=== PATIENT | female | born 1965 | race African-American/Black ===

== ENCOUNTER 2021-01-17 12:57 | Observation (INO) ==
[2021-01-17] MEDS ORDERED: FUROSEMIDE 100 MG/10 ML VIAL IV STA (13:13)
[2021-01-17] MEDS ORDERED: MORPHINE 4 MG/1 ML VIAL IV STA (13:14)
[2021-01-17] MEDS ORDERED: NITROGLYCERIN SL 0.4 MG TABLET SL PRN (13:14)
[2021-01-17 13:27] LABS: Basophils # 0.1 10*3/uL (0.0-0.2); Basophils % 0.4 % (0.0-0.8); Eosinophils # 0.2 10*3/uL (0.0-0.87); Eosinophils % 1.4 % (0.00-10.9); Hematocrit 37.4 VOL% (35.7-47.0); Hemoglobin 11.6 GM/DL (12.0-16.0); Immature Granulocytes % 1.4 %; Immature Granulocytes Absolute 0.23 #; Lymphocytes # 1.8 10*3/uL (1.4-4.0); Lymphocytes % 10.6 % (21.3-54.2); Mean Corpuscular Volume 80.1 FL (87-102); Mean Platelet Volume 9.4 FL (9.6-12.0); Monocytes % 4.8 % (1.7-12.7); NRBC # 0.06 10*3/uL; Neutrophils % 81.4 % (38.7-73.9); Platelet Count 342 T/CUMM (130-400); Red Blood Count 4.67 MC/CUMM (3.8-5.5); Red Cell Distribution Width 16.3 % (9.3-17.3); White Blood Count 16.9 T/CUMM (4-12)
[2021-01-17 13:44] LABS: PT Patient Result 10.9 SECS (9.8-11.9); Partial Thromboplastin Time 31.2 SECS (23.9-33.8)
[2021-01-17 13:49] LABS: Albumin 2.9 G/DL (3.4-5.0); Bilirubin,Total 0.4 MG/DL (0.2-1.0); Calcium 8.7 MG/DL (8.5-10.1); Osmolality,Calculated 282.1 MOS/KG (273-304); Potassium 4.8 MMOL/L (3.5-5.1); Total Protein 7.4 G/DL (5.0-7.5)
[2021-01-17] MEDS ORDERED: DEXTROSE 50% 25 GM/50 ML VIAL IV PRN (16:42)
[2021-01-17] MEDS ORDERED: ACETAMINOPHEN 325 MG TABLET PO PRN (16:42)
[2021-01-17] MEDS ORDERED: ONDANSETRON 4 MG/2 ML VIAL IV PRN (16:42)
[2021-01-17] MEDS ORDERED: GLUCAGON 1 MG VIAL IM PRN (16:42)
[2021-01-17] MEDS: HEPARIN 5,000 UNIT/1 ML VIAL SUBCUT SCH (17:56)
[2021-01-17] MEDS: cefTRIAXone 1,000 MG in SYRINGE 1 EACH IV SCH (17:56)
[2021-01-17] MEDS: AZITHROMYCIN INJ 500 MG in SODIUM CHLORIDE 0.9% 250 ML IV SCH (17:56)
[2021-01-17] MEDS: ALBUTEROL/IPRATROPIUM 3 ML NEB RESP TX SCH (19:40)
[2021-01-17] MEDS: INSULIN LISPRO 100 UNIT/ML SUBCUT SCH (21:14)
[2021-01-17] MEDS: SIMVASTATIN 20 MG TABLET PO SCH (21:14)
[2021-01-18] MEDS: ALBUTEROL/IPRATROPIUM 3 ML NEB RESP TX SCH ×4 (01:06→19:50)
[2021-01-18 05:06] LABS: Basophils % 0.3 % (0.0-0.8); Eosinophils # 0.2 10*3/uL (0.0-0.87); Eosinophils % 1.7 % (0.00-10.9); Hematocrit 31.8 VOL% (35.7-47.0); Immature Granulocytes % 0.9 %; Immature Granulocytes Absolute 0.12 #; Lymphocytes # 1.5 10*3/uL (1.4-4.0); Lymphocytes % 11.5 % (21.3-54.2); Mean Corpuscular HGB Conc 31.4 GM/DL (32-36); Mean Corpuscular Volume 80.5 FL (87-102); Mean Platelet Volume 9.8 FL (9.6-12.0); Monocytes % 5.1 % (1.7-12.7); NRBC # 0.05 10*3/uL; Neutrophils % 80.5 % (38.7-73.9); Platelet Count 283 T/CUMM (130-400); Red Blood Count 3.95 MC/CUMM (3.8-5.5); White Blood Count 13.2 T/CUMM (4-12)
[2021-01-18] MEDS: HEPARIN 5,000 UNIT/1 ML VIAL SUBCUT SCH ×2 (05:57→16:50)
[2021-01-18 06:43] LABS: Calcium 8.3 MG/DL (8.5-10.1); Osmolality,Calculated 284.2 MOS/KG (273-304); Potassium 4.7 MMOL/L (3.5-5.1)
[2021-01-18] MEDS: ASPIRIN EC 81 MG TABLET PO SCH (08:36)
[2021-01-18] MEDS: LEVOTHYROXINE 125 MCG TABLET PO SCH (08:36)
[2021-01-18] MEDS: CETIRIZINE 10 MG TABLET PO SCH (08:37)
[2021-01-18] MEDS: PANTOPRAZOLE 40 MG TABLET PO SCH (08:37)
[2021-01-18] MEDS: FUROSEMIDE 40 MG/4 ML VIAL IV SCH ×2 (08:37→16:51)
[2021-01-18] MEDS: INSULIN LISPRO 100 UNIT/ML SUBCUT SCH ×4 (08:37→20:54)
[2021-01-18] MEDS ORDERED: sitaGLIPtin 25 MG TABLET PO SCH (09:00)
[2021-01-18] MEDS: glipiZIDE 10 MG TABLET PO SCH ×2 (09:24→20:53)
[2021-01-18] MEDS: AZITHROMYCIN INJ 500 MG in SODIUM CHLORIDE 0.9% 250 ML IV SCH (16:49)
[2021-01-18] MEDS: cefTRIAXone 1,000 MG in SYRINGE 1 EACH IV SCH (16:50)
[2021-01-18] MEDS: SIMVASTATIN 20 MG TABLET PO SCH (20:52)
[2021-01-19] MEDS: ALBUTEROL/IPRATROPIUM 3 ML NEB RESP TX SCH ×3 (00:27→12:50)
[2021-01-19] MEDS: HEPARIN 5,000 UNIT/1 ML VIAL SUBCUT SCH (05:38)
[2021-01-19 06:03] LABS: Basophils # 0.1 10*3/uL (0.0-0.2); Basophils % 0.6 % (0.0-0.8); Eosinophils # 0.5 10*3/uL (0.0-0.87); Eosinophils % 4.2 % (0.00-10.9); Hemoglobin 9.8 GM/DL (12.0-16.0); Immature Granulocytes Absolute 0.11 #; Lymphocytes # 2.4 10*3/uL (1.4-4.0); Lymphocytes % 22.8 % (21.3-54.2); Mean Corpuscular HGB Conc 31.6 GM/DL (32-36); Mean Corpuscular Volume 78.7 FL (87-102); Mean Platelet Volume 10.4 FL (9.6-12.0); Monocytes % 7.4 % (1.7-12.7); NRBC # 0.06 10*3/uL; Platelet Count 298 T/CUMM (130-400); Red Blood Count 3.94 MC/CUMM (3.8-5.5); Red Cell Distribution Width 16.3 % (9.3-17.3); White Blood Count 10.7 T/CUMM (4-12)
[2021-01-19 06:27] LABS: Calcium 7.9 MG/DL (8.5-10.1); Potassium 4.1 MMOL/L (3.5-5.1)
[2021-01-19] MEDS ORDERED: METOPROLOL TARTRATE 100 MG TABLET PO SCH (09:00)
[2021-01-19] MEDS ORDERED: amLODIPine 5 MG TABLET PO SCH (09:00)
[2021-01-19] MEDS: ASPIRIN EC 81 MG TABLET PO SCH (10:38)
[2021-01-19] MEDS: CETIRIZINE 10 MG TABLET PO SCH (10:38)
[2021-01-19] MEDS: LEVOTHYROXINE 125 MCG TABLET PO SCH (10:38)
[2021-01-19] MEDS: PANTOPRAZOLE 40 MG TABLET PO SCH (10:38)
[2021-01-19] MEDS: glipiZIDE 10 MG TABLET PO SCH (10:38)
[2021-01-19] MEDS: INSULIN LISPRO 100 UNIT/ML SUBCUT SCH ×3 (10:38→16:39)
[2021-01-19] MEDS: FUROSEMIDE 40 MG/4 ML VIAL IV SCH (10:39)
[2021-01-19] MEDS ORDERED: AMOXICILLIN/CLAV 500 MG TABLET PO SCH (14:00)
[2021-01-19 16:19] VITALS: BP 153/98
[2021-01-20] MEDS ORDERED: FUROSEMIDE 40 MG TABLET PO SCH (09:00)
== END 2021-01-19 16:35 | disposition home or self-care (01) ==
LOC: N.ED 12:57 → N.TELEN 12:57 → SUATTDRO 16:42 → N.TELEN 17:45
PROVIDERS: ADMIT Internal Medicine; ATTEND Internal Medicine

== ENCOUNTER 2021-02-21 16:20 | Inpatient (IN) ==
[2021-02-21] MEDS ORDERED: ALBUTEROL/IPRATROPIUM 3 ML NEB RESP TX STA (16:58)
[2021-02-21 17:19] LABS: ABG Base Excess -9.9 MMOL/L (-2.5-2.5); ABG HCO3 16.4 MMOL/L (20-26); ABG PCO2 34.2 MM HG (35-48); ABG PH 7.279 (7.35-7.45); ABG PO2 68.3 MM HG (80-95); ABG TCO2 14.7 MMOL/L (23-27)
[2021-02-21 17:21] LABS: Basophils # 0.1 10*3/uL (0.0-0.2); Basophils % 0.3 % (0.0-0.8); Hematocrit 34.1 VOL% (35.7-47.0); Hemoglobin 10.7 GM/DL (12.0-16.0); Immature Granulocytes % 1.3 %; Immature Granulocytes Absolute 0.27 #; Lymphocytes # 1.5 10*3/uL (1.4-4.0); Mean Corpuscular HGB Conc 31.4 GM/DL (32-36); Mean Corpuscular Volume 81.8 FL (87-102); Mean Platelet Volume 9.3 FL (9.6-12.0); Monocytes % 3.2 % (1.7-12.7); NRBC # 0.08 10*3/uL; Neutrophils % 88.2 % (38.7-73.9); Platelet Count 308 T/CUMM (130-400); Red Blood Count 4.17 MC/CUMM (3.8-5.5); Red Cell Distribution Width 17.1 % (9.3-17.3); White Blood Count 21.2 T/CUMM (4-12)
[2021-02-21] MEDS ORDERED: LEVOFLOXACIN INJ 500 MG in PREMIX 1 EACH IV STA (17:35)
[2021-02-21] MEDS ORDERED: FUROSEMIDE 100 MG/10 ML VIAL IV STA (17:35)
[2021-02-21 17:37] LABS: INR 1.1; PT Patient Result 12.2 SECS (9.8-11.9)
[2021-02-21 17:46] LABS: Albumin 2.8 G/DL (3.4-5.0); Bilirubin,Total 0.6 MG/DL (0.2-1.0); Calcium 9.1 MG/DL (8.5-10.1); Osmolality,Calculated 287.4 MOS/KG (273-304); Potassium 5.4 MMOL/L (3.5-5.1); Total Protein 7.6 G/DL (6.4-8.2)
[2021-02-21 18:34] LABS: Band Neutrophils 5 % (0-10); Lymphocytes 7 % (20-55); Nucleated Red Blood Cells 1 (0-5); Segmented Neutrophils 85 % (50-85); Total Cells Counted 100
[2021-02-21 18:35] LABS: Microcytosis Slight; Platelet Estimate Normal
[2021-02-21] MEDS ORDERED: MAGNESIUM SULF RIDER 2 GM in PREMIX 1 EACH IV PRN (19:11)
[2021-02-21] MEDS ORDERED: ACETAMINOPHEN 325 MG TABLET PO PRN (19:11)
[2021-02-21] MEDS ORDERED: hydrALAZINE 20 MG/1 ML VIAL IV PRN (19:11)
[2021-02-21] MEDS ORDERED: DEXTROSE 50% 25 GM/50 ML VIAL IV PRN ×2 (19:11)
[2021-02-21] MEDS ORDERED: MAGNESIUM SULF RIDER 4 GM in PREMIX 1 EACH IV PRN (19:11)
[2021-02-21] MEDS ORDERED: ONDANSETRON 4 MG/2 ML VIAL IV PRN (19:11)
[2021-02-21] MEDS ORDERED: guaiFENesin/DM ER 600-30 MG TABLET PO PRN (19:11)
[2021-02-21] MEDS ORDERED: GLUCAGON 1 MG VIAL IM PRN ×2 (19:11)
[2021-02-21] MEDS ORDERED: SODIUM CHLORIDE 0.9% 100 ML IV ONE (19:42)
[2021-02-21] MEDS: SODIUM CHLORIDE 0.9% 1,000 ML IV SCH (19:45)
[2021-02-21] MEDS: methylPREDNISolone SOD SUC 40 MG/1 ML VIAL IV SCH (19:47)
[2021-02-21] MEDS: cefTRIAXone 1,000 MG in SYRINGE 1 EACH IV SCH (19:50)
[2021-02-21 20:34] LABS: Bacteria,Urine Occasional /HPF (Few); Bilirubin,Urine Negative (Negative); Blood, Urine Small mg/dL (Negative); Glucose,Urine (UA) 50 mg/dL (Negative); Hyaline Casts,Urine 1 /LPF (0-3); Ketones,Urine 5 mg/dL (Negative); Mucus,Urine Occasional /LPF (Occasional); Nitrite,Urine Negative (Negative); Protein,Urine 100 MG/DL; RBC,Urine 1 /HPF (0-4); Squamous Epithelial Cell,Urine Occasional /HPF (0-10); Urine Appearance CLEAR (Clear); Urine Color Straw (Yellow); Urine Specific Gravity 1.009 (1.001-1.035); Urine Urobilinogen < 2.0 EU/DL (0.2-1.0)
[2021-02-21 22:11] LABS: ABG Base Excess -8.2 MMOL/L (-2.5-2.5); ABG HCO3 17.8 MMOL/L (20-26); ABG Oxygen Saturation 96.5 % (95-100); ABG PCO2 38.8 MM HG (35-48); ABG PH 7.276 (7.35-7.45); ABG TCO2 16.6 MMOL/L (23-27); Allen Test Positive; Pt O2 Delivery Device Simple Mask
[2021-02-21] MEDS: AZITHROMYCIN INJ 500 MG in SODIUM CHLORIDE 0.9% 250 ML IV SCH (22:32)
[2021-02-21] MEDS: ENOXAPARIN 30 MG/0.3 ML SYRINGE SUBCUT SCH (22:33)
[2021-02-21] MEDS: INSULIN LISPRO 100 UNIT/ML SUBCUT SCH (22:40)
[2021-02-22] MEDS: ALBUTEROL/IPRATROPIUM 3 ML NEB RESP TX SCH ×4 (00:06→19:27)
[2021-02-22] MEDS: methylPREDNISolone SOD SUC 40 MG/1 ML VIAL IV SCH ×3 (02:37→20:33)
[2021-02-22 05:49] LABS: Basophils % 0.2 % (0.0-0.8); Hematocrit 31.1 VOL% (35.7-47.0); Hemoglobin 9.9 GM/DL (12.0-16.0); Immature Granulocytes % 1.6 %; Immature Granulocytes Absolute 0.27 #; Lymphocytes % 5.9 % (21.3-54.2); Mean Corpuscular HGB Conc 31.8 GM/DL (32-36); Mean Corpuscular Volume 79.7 FL (87-102); Mean Platelet Volume 10.1 FL (9.6-12.0); Monocytes % 0.8 % (1.7-12.7); NRBC # 0.12 10*3/uL; Neutrophils % 91.5 % (38.7-73.9); Platelet Count 301 T/CUMM (130-400); Red Cell Distribution Width 16.3 % (9.3-17.3)
[2021-02-22 06:04] LABS: Calcium 8.7 MG/DL (8.5-10.1); Osmolality,Calculated 297.8 MOS/KG (273-304); Potassium 5.4 MMOL/L (3.5-5.1)
[2021-02-22 06:27] LABS: Band Neutrophils 3 % (0-10); Lymphocytes 4 % (20-55); Nucleated Red Blood Cells 2 (0-5); Platelet Estimate Normal; Segmented Neutrophils 93 % (50-85); Total Cells Counted 100
[2021-02-22 06:28] LABS: Anisocytosis 1+; Macrocytosis Slight
[2021-02-22] MEDS: INSULIN LISPRO 100 UNIT/ML SUBCUT SCH ×4 (07:33→20:33)
[2021-02-22] MEDS: PANTOPRAZOLE 40 MG TABLET PO SCH (08:32)
[2021-02-22] MEDS: FUROSEMIDE 40 MG/4 ML VIAL IV SCH ×2 (08:32→16:27)
[2021-02-22] MEDS: SODIUM CHLORIDE 0.9% 1,000 ML IV SCH ×2 (16:28→23:47)
[2021-02-22] MEDS: cefTRIAXone 1,000 MG in SYRINGE 1 EACH IV SCH (20:33)
[2021-02-22] MEDS: ENOXAPARIN 30 MG/0.3 ML SYRINGE SUBCUT SCH (20:51)
[2021-02-22] MEDS ORDERED: AZITHROMYCIN INJ 500 MG in SODIUM CHLORIDE 0.9% 250 ML IV SCH (23:30)
[2021-02-22] MEDS: AZITHROMYCIN INJ 500 MG in SODIUM CHLORIDE 0.9% 250 ML IV SCH (23:47)
[2021-02-23] MEDS: ALBUTEROL/IPRATROPIUM 3 ML NEB RESP TX SCH ×4 (00:05→20:41)
[2021-02-23] MEDS: methylPREDNISolone SOD SUC 40 MG/1 ML VIAL IV SCH (03:26)
[2021-02-23 05:32] LABS: Basophils # 0.1 10*3/uL (0.0-0.2); Basophils % 0.2 % (0.0-0.8); Hematocrit 28.3 VOL% (35.7-47.0); Hemoglobin 9.2 GM/DL (12.0-16.0); Immature Granulocytes % 4.1 %; Immature Granulocytes Absolute 0.92 #; Lymphocytes # 1.4 10*3/uL (1.4-4.0); Lymphocytes % 6.3 % (21.3-54.2); Mean Corpuscular HGB Conc 32.5 GM/DL (32-36); Mean Corpuscular Volume 78.2 FL (87-102); Mean Platelet Volume 9.8 FL (9.6-12.0); Monocytes % 2.9 % (1.7-12.7); NRBC # 0.21 10*3/uL; Neutrophils % 86.5 % (38.7-73.9); Platelet Count 285 T/CUMM (130-400); Red Blood Count 3.62 MC/CUMM (3.8-5.5); White Blood Count 22.2 T/CUMM (4-12)
[2021-02-23 06:01] LABS: Band Neutrophils 2 % (0-10); Hypochromasia 1+; Lymphocytes 6 % (20-55); Microcytosis 1+; Nucleated Red Blood Cells 2 (0-5); Platelet Estimate Adequate; Segmented Neutrophils 87 % (50-85); Total Cells Counted 100
[2021-02-23 06:13] LABS: Calcium 8.5 MG/DL (8.5-10.1); Osmolality,Calculated 302.5 MOS/KG (273-304); Potassium 4.8 MMOL/L (3.5-5.1); Thyroid Stimulating Hormone 0.242 uIU/ml (0.358-3.74)
[2021-02-23] MEDS: FUROSEMIDE 40 MG/4 ML VIAL IV SCH ×2 (08:06→17:06)
[2021-02-23] MEDS: PANTOPRAZOLE 40 MG TABLET PO SCH (08:06)
[2021-02-23] MEDS: INSULIN LISPRO 100 UNIT/ML SUBCUT SCH ×7 (08:06→22:37)
[2021-02-23] MEDS: predniSONE 20 MG TABLET PO SCH (08:06)
[2021-02-23] MEDS ORDERED: DEXTROSE 50% 25 GM/50 ML VIAL IV PRN (10:53)
[2021-02-23] MEDS ORDERED: GLUCAGON 1 MG VIAL IM PRN (10:53)
[2021-02-23] MEDS ORDERED: INSULIN GLARGINE 100 UNIT/ML SUBCUT SCH (12:00)
[2021-02-23] MEDS: ENOXAPARIN 30 MG/0.3 ML SYRINGE SUBCUT SCH (20:29)
[2021-02-23] MEDS: cefTRIAXone 1,000 MG in SYRINGE 1 EACH IV SCH (20:31)
[2021-02-24] MEDS: ALBUTEROL/IPRATROPIUM 3 ML NEB RESP TX SCH ×2 (01:09→07:45)
[2021-02-24] MEDS: INSULIN LISPRO 100 UNIT/ML SUBCUT SCH ×6 (01:32→11:32)
[2021-02-24 08:01] LABS: Calcium 8.9 MG/DL (8.5-10.1); Osmolality,Calculated 299.5 MOS/KG (273-304); Potassium 4.6 MMOL/L (3.5-5.1)
[2021-02-24] MEDS: predniSONE 20 MG TABLET PO SCH (08:34)
[2021-02-24] MEDS: PANTOPRAZOLE 40 MG TABLET PO SCH (08:35)
[2021-02-24] MEDS: FUROSEMIDE 40 MG/4 ML VIAL IV SCH (08:35)
[2021-02-24 11:39] VITALS: BP 148/84
== END 2021-02-24 15:01 | disposition home or self-care (01) | DRG 193 ==
LOC: N.ED 16:20 → N.EDINP 19:13 → SUATTDRO 19:13 → N.EDINP 20:59 → N.5E 21:32
PROVIDERS: ADMIT Phlebology; ATTEND Internal Medicine

== ENCOUNTER 2022-09-04 11:13 | Inpatient (IN) ==
[2022-09-04 11:55] LABS: Basophils % 0.4 % (0.0-0.8); Eosinophils # 0.2 10*3/uL (0.0-0.87); Eosinophils % 2.1 % (0.00-10.9); Hematocrit 40.7 VOL% (35.7-47.0); Hemoglobin 12.2 GM/DL (12.0-16.0); Immature Granulocytes % 1.1 %; Lymphocytes # 2.7 10*3/uL (1.4-4.0); Lymphocytes % 28.8 % (21.3-54.2); Mean Corpuscular Volume 80.9 FL (87-102); Mean Platelet Volume 9.6 FL (9.6-12.0); Monocytes # 0.4 10*3/uL (0.11-0.8); Monocytes % 3.7 % (1.7-12.7); Neutrophils % 63.9 % (38.7-73.9); Platelet Count 308 T/CUMM (130-400); Red Blood Count 5.03 MC/CUMM (3.8-5.5); Red Cell Distribution Width 16.2 % (9.3-17.3); White Blood Count 9.5 T/CUMM (4-12)
[2022-09-04 12:08] LABS: Alanine Aminotransferase 19 U/L (13-56); Albumin 3.3 G/DL (3.4-5.0); Alkaline Phosphatase 214 U/L (45-117); Aspartate Amino Transferase 18 U/L (0-37); Bilirubin,Total < 0.39 MG/DL (0.20-1.00); Blood Urea Nitrogen 45 MG/DL (7-18); Carbon Dioxide 26 MMOL/L (21-32); Chloride 108 MMOL/L (98-107); Glucose 114 MG/DL (74-106); Osmolality,Calculated 291.4 MOS/KG (273-304); Potassium 4.4 MMOL/L (3.5-5.1); Sodium 140 MMOL/L (136-145); Total Protein 7.5 G/DL (6.4-8.2)
[2022-09-04 12:18] LABS: Arterial Base Excess iSTAT -9 MMOL/L (-2.5-2.5); Arterial Bicarbonate iSTAT 19.9 MMOL/L (20-26); Arterial O2 Saturation iSTAT 95 % (95-100); Arterial PCO2 iSTAT 54 MM HG (35-48); Arterial PO2 iSTAT 94 MM HG (80-95); Arterial Total CO2 iSTAT 21 MMO/L (23-27); Arterial pH iSTAT 7.178 (7.35-7.45)
[2022-09-04 12:28] LABS: PT Patient Result 10.9 SECS (10.1-12.1)
[2022-09-04 13:10] LABS: Bilirubin,Urine Negative (Negative); Blood, Urine Moderate mg/dL (Negative); Glucose,Urine (UA) >=500 mg/dL (Negative); Ketones,Urine Negative (Negative); Mucus,Urine Occasional /LPF (Occasional); Nitrite,Urine Negative (Negative); Protein,Urine 100 mg/dL (Negative); RBC,Urine 1 /HPF (0-4); Squamous Epithelial Cell,Urine Occasional /HPF (0-10); Urine Appearance Slightly Hazy (Clear); Urine Color Yellow (Yellow); Urine Specific Gravity 1.011 (1.001-1.035); Urine Urobilinogen < 2.0 eU/dL (<2.0)
[2022-09-04 13:16] LABS: Barbiturates Screen,Urine Negative (Negative); Benzodiazepines Screen,Urine Negative (Negative); Cannabinoid Screen,Urine Negative (Negative); Opiate Screen,Urine Negative (Negative); Phencyclidine Screen,Urine Negative (Negative)
[2022-09-04 13:33] LABS: Arterial Base Excess iSTAT -8 MMOL/L (-2.5-2.5); Arterial Bicarbonate iSTAT 20.9 MMOL/L (20-26); Arterial O2 Saturation iSTAT 98 % (95-100); Arterial PCO2 iSTAT 54 MM HG (35-48); Arterial PO2 iSTAT 125 MM HG (80-95); Arterial Total CO2 iSTAT 22 MMO/L (23-27); Arterial pH iSTAT 7.192 (7.35-7.45)
[2022-09-04] MEDS ORDERED: ACETAMINOPHEN 325 MG TABLET PO PRN (13:59)
[2022-09-04] MEDS ORDERED: ONDANSETRON 4 MG/2 ML VIAL IV PRN (13:59)
[2022-09-04] MEDS ORDERED: hydrALAZINE 20 MG/1 ML VIAL IV PRN (13:59)
[2022-09-04] MEDS ORDERED: DEXTROSE 10% 250 ML BAG IV PRN (14:16)
[2022-09-04] MEDS ORDERED: GLUCAGON 1 MG VIAL IM PRN (14:16)
[2022-09-04] MEDS: DEXTROSE 5% NACL 0.45% 1,000 ML IV SCH (15:02)
[2022-09-04] MEDS: SIMVASTATIN 20 MG TABLET PO SCH (17:53)
[2022-09-04] MEDS ORDERED: INFLUENZA VIRUS VACCINE 0.5 ML SYRINGE IM ONE (17:53)
[2022-09-04] MEDS: HEPARIN 5,000 UNIT/1 ML VIAL SUBCUT SCH (20:40)
[2022-09-04] MEDS: METOPROLOL TARTRATE 100 MG TABLET PO SCH (20:40)
[2022-09-04] MEDS ORDERED: INSULIN GLARGINE 100 UNIT/ML SUBCUT SCH (21:00)
[2022-09-05] MEDS: DEXTROSE 5% NACL 0.45% 1,000 ML IV SCH (03:35)
[2022-09-05 03:54] LABS: Arterial Base Excess iSTAT -4 MMOL/L (-2.5-2.5); Arterial O2 Saturation iSTAT 99 % (95-100); Arterial PCO2 iSTAT 39 MM HG (35-48); Arterial PO2 iSTAT 129 MM HG (80-95); Arterial Total CO2 iSTAT 22 MMO/L (23-27)
[2022-09-05 06:40] LABS: Calcium 7.6 MG/DL (8.5-10.1); Osmolality,Calculated 291.5 MOS/KG (273-304); Potassium 4.9 MMOL/L (3.5-5.1); Thyroid Stimulating Hormone 0.022 uIU/ml (0.358-3.74)
[2022-09-05 07:24] LABS: Basophils % 0.1 % (0.0-0.8); Eosinophils % 0.1 % (0.00-10.9); Hematocrit 32.5 VOL% (35.7-47.0); Hemoglobin 10.1 GM/DL (12.0-16.0); Immature Granulocytes % 0.6 %; Immature Granulocytes Absolute 0.09 #; Lymphocytes # 1.3 10*3/uL (1.4-4.0); Lymphocytes % 9.3 % (21.3-54.2); Mean Corpuscular HGB Conc 31.1 GM/DL (32-36); Mean Corpuscular Volume 78.5 FL (87-102); Monocytes # 0.7 10*3/uL (0.11-0.8); Monocytes % 4.7 % (1.7-12.7); Neutrophils % 85.2 % (38.7-73.9); Platelet Count 278 T/CUMM (130-400); Red Blood Count 4.14 MC/CUMM (3.8-5.5); Red Cell Distribution Width 15.9 % (9.3-17.3); White Blood Count 14.2 T/CUMM (4-12)
[2022-09-05] MEDS ORDERED: FUROSEMIDE 40 MG TABLET PO SCH (09:00)
[2022-09-05] MEDS ORDERED: POTASSIUM CHLORIDE 20 MEQ TABLET PO SCH (09:00)
[2022-09-05] MEDS: amLODIPine 5 MG TABLET PO SCH (10:27)
[2022-09-05] MEDS: METOPROLOL TARTRATE 100 MG TABLET PO SCH ×2 (10:27→21:31)
[2022-09-05] MEDS: cefTRIAXone 2,000 MG in SODIUM CHLORIDE 0.9% 100 ML IV SCH (10:28)
[2022-09-05] MEDS: FUROSEMIDE 40 MG/4 ML VIAL IV SCH ×2 (10:28→18:04)
[2022-09-05] MEDS: HEPARIN 5,000 UNIT/1 ML VIAL SUBCUT SCH ×2 (10:28→21:32)
[2022-09-05] MEDS: SIMVASTATIN 20 MG TABLET PO SCH (18:04)
[2022-09-06 05:33] LABS: Basophils # 0.1 10*3/uL (0.0-0.2); Basophils % 0.3 % (0.0-0.8); Eosinophils # 0.3 10*3/uL (0.0-0.87); Eosinophils % 1.8 % (0.00-10.9); Hematocrit 31.1 VOL% (35.7-47.0); Hemoglobin 9.8 GM/DL (12.0-16.0); Immature Granulocytes % 0.9 %; Immature Granulocytes Absolute 0.13 #; Lymphocytes # 4.3 10*3/uL (1.4-4.0); Lymphocytes % 29.2 % (21.3-54.2); Mean Corpuscular HGB Conc 31.5 GM/DL (32-36); Mean Corpuscular Volume 77.6 FL (87-102); Monocytes # 1.1 10*3/uL (0.11-0.8); Monocytes % 7.5 % (1.7-12.7); Neutrophils % 60.3 % (38.7-73.9); Platelet Count 279 T/CUMM (130-400); Red Blood Count 4.01 MC/CUMM (3.8-5.5); Red Cell Distribution Width 15.9 % (9.3-17.3); White Blood Count 14.7 T/CUMM (4-12)
[2022-09-06 06:03] LABS: Calcium 7.5 MG/DL (8.5-10.1); Osmolality,Calculated 296.1 MOS/KG (273-304); Potassium 4.1 MMOL/L (3.5-5.1)
[2022-09-06 06:07] LABS: Eosinophils 1 % (0-10); Hypochromia Slight; Lymphocytes 27 % (20-55); Microcytosis Slight; Platelet Estimate Adequate; Total Cells Counted 100
[2022-09-06] MEDS: HEPARIN 5,000 UNIT/1 ML VIAL SUBCUT SCH ×2 (08:48→21:17)
[2022-09-06] MEDS: METOPROLOL TARTRATE 100 MG TABLET PO SCH ×2 (08:49→21:17)
[2022-09-06] MEDS: FUROSEMIDE 40 MG/4 ML VIAL IV SCH (08:49)
[2022-09-06] MEDS: amLODIPine 5 MG TABLET PO SCH (08:55)
[2022-09-06] MEDS: cefTRIAXone 2,000 MG in SODIUM CHLORIDE 0.9% 100 ML IV SCH (10:51)
[2022-09-06] MEDS: DEXTROSE 5% NACL 0.45% 1,000 ML IV SCH ×2 (17:00→17:26)
[2022-09-06] MEDS: SIMVASTATIN 20 MG TABLET PO SCH (18:00)
[2022-09-07 05:51] LABS: Basophils % 0.4 % (0.0-0.8); Eosinophils # 0.4 10*3/uL (0.0-0.87); Eosinophils % 3.5 % (0.00-10.9); Hematocrit 32.6 VOL% (35.7-47.0); Hemoglobin 10.2 GM/DL (12.0-16.0); Immature Granulocytes % 1.4 %; Immature Granulocytes Absolute 0.16 #; Lymphocytes # 3.5 10*3/uL (1.4-4.0); Lymphocytes % 31.6 % (21.3-54.2); Mean Corpuscular HGB Conc 31.3 GM/DL (32-36); Mean Corpuscular Volume 77.1 FL (87-102); Mean Platelet Volume 9.7 FL (9.6-12.0); Monocytes % 9.1 % (1.7-12.7); NRBC # 0.02 10*3/uL; Platelet Count 265 T/CUMM (130-400); Red Blood Count 4.23 MC/CUMM (3.8-5.5); Red Cell Distribution Width 15.9 % (9.3-17.3); White Blood Count 11.1 T/CUMM (4-12)
[2022-09-07 06:10] LABS: Calcium 8.2 MG/DL (8.5-10.1); Osmolality,Calculated 297.4 MOS/KG (273-304); Potassium 4.3 MMOL/L (3.5-5.1)
[2022-09-07] MEDS: cefTRIAXone 2,000 MG in SODIUM CHLORIDE 0.9% 100 ML IV SCH (08:10)
[2022-09-07] MEDS: METOPROLOL TARTRATE 100 MG TABLET PO SCH ×2 (08:10→20:36)
[2022-09-07] MEDS: amLODIPine 5 MG TABLET PO SCH (08:10)
[2022-09-07] MEDS: HEPARIN 5,000 UNIT/1 ML VIAL SUBCUT SCH ×2 (08:10→20:36)
[2022-09-07] MEDS: SIMVASTATIN 20 MG TABLET PO SCH (17:22)
[2022-09-07] MEDS ORDERED: AZITHROMYCIN INJ 500 MG in SODIUM CHLORIDE 0.9% 250 ML IV SCH (18:00)
[2022-09-07] MEDS: DEXTROSE 5% NACL 0.45% 1,000 ML IV SCH (18:44)
[2022-09-07] MEDS ORDERED: INSULIN GLARGINE 100 UNIT/ML SUBCUT SCH (21:00)
[2022-09-08 06:35] LABS: Basophils # 0.1 10*3/uL (0.0-0.2); Basophils % 0.5 % (0.0-0.8); Eosinophils # 0.4 10*3/uL (0.0-0.87); Eosinophils % 3.7 % (0.00-10.9); Hematocrit 34.7 VOL% (35.7-47.0); Hemoglobin 10.8 GM/DL (12.0-16.0); Immature Granulocytes % 1.6 %; Immature Granulocytes Absolute 0.18 #; Lymphocytes # 3.3 10*3/uL (1.4-4.0); Lymphocytes % 29.7 % (21.3-54.2); Mean Corpuscular HGB Conc 31.1 GM/DL (32-36); Mean Corpuscular Volume 78.9 FL (87-102); Mean Platelet Volume 10.5 FL (9.6-12.0); Monocytes # 0.9 10*3/uL (0.11-0.8); Monocytes % 8.2 % (1.7-12.7); Neutrophils % 56.3 % (38.7-73.9); Platelet Count 306 T/CUMM (130-400); Red Cell Distribution Width 15.9 % (9.3-17.3); White Blood Count 10.9 T/CUMM (4-12)
[2022-09-08 07:18] LABS: Calcium 8.2 MG/DL (8.5-10.1); Osmolality,Calculated 299.1 MOS/KG (273-304); Potassium 4.3 MMOL/L (3.5-5.1)
[2022-09-08] MEDS: cefTRIAXone 2,000 MG in SODIUM CHLORIDE 0.9% 100 ML IV SCH (08:29)
[2022-09-08] MEDS: METOPROLOL TARTRATE 100 MG TABLET PO SCH ×2 (08:30→22:05)
[2022-09-08] MEDS: amLODIPine 5 MG TABLET PO SCH (08:30)
[2022-09-08] MEDS: HEPARIN 5,000 UNIT/1 ML VIAL SUBCUT SCH ×2 (08:30→22:05)
[2022-09-08 10:52] LABS: Folate 9.25 NG/ML (5.38-24.0)
[2022-09-08] MEDS: INSULIN LISPRO 100 UNIT/ML SUBCUT SCH ×3 (12:25→22:06)
[2022-09-08] MEDS: INSULIN GLARGINE 100 UNIT/ML SUBCUT SCH (13:24)
[2022-09-08] MEDS: AZITHROMYCIN 250 MG TABLET PO SCH (13:24)
[2022-09-08] MEDS: SIMVASTATIN 20 MG TABLET PO SCH (17:47)
[2022-09-09 05:52] LABS: Basophils # 0.1 10*3/uL (0.0-0.2); Basophils % 0.6 % (0.0-0.8); Eosinophils # 0.6 10*3/uL (0.0-0.87); Eosinophils % 4.7 % (0.00-10.9); Hematocrit 32.6 VOL% (35.7-47.0); Immature Granulocytes % 2.1 %; Immature Granulocytes Absolute 0.25 #; Lymphocytes # 4.4 10*3/uL (1.4-4.0); Lymphocytes % 36.7 % (21.3-54.2); Mean Corpuscular HGB Conc 30.7 GM/DL (32-36); Mean Corpuscular Volume 77.6 FL (87-102); Mean Platelet Volume 9.3 FL (9.6-12.0); Monocytes # 1.1 10*3/uL (0.11-0.8); Monocytes % 9.3 % (1.7-12.7); Neutrophils % 46.6 % (38.7-73.9); Platelet Count 274 T/CUMM (130-400); Red Cell Distribution Width 15.9 % (9.3-17.3); White Blood Count 12.1 T/CUMM (4-12)
[2022-09-09 06:15] LABS: Hypochromia 1+; Microcytosis 1+
[2022-09-09 06:16] LABS: Calcium 8.5 MG/DL (8.5-10.1); Osmolality,Calculated 291.3 MOS/KG (273-304); Potassium 4.6 MMOL/L (3.5-5.1)
[2022-09-09 06:16] LABS: Platelet Estimate Normal; Polychromasia Slight; Target Cells Slight
[2022-09-09 08:20] VITALS: BP 154/89
[2022-09-09] MEDS: amLODIPine 5 MG TABLET PO SCH (09:04)
[2022-09-09] MEDS: AZITHROMYCIN 250 MG TABLET PO SCH (09:04)
[2022-09-09] MEDS: METOPROLOL TARTRATE 100 MG TABLET PO SCH (09:04)
[2022-09-09] MEDS: INSULIN LISPRO 100 UNIT/ML SUBCUT SCH ×2 (09:04→11:23)
[2022-09-09] MEDS: INSULIN GLARGINE 100 UNIT/ML SUBCUT SCH (09:05)
[2022-09-09] MEDS: HEPARIN 5,000 UNIT/1 ML VIAL SUBCUT SCH (09:05)
[2022-09-09] MEDS: cefTRIAXone 2,000 MG in SODIUM CHLORIDE 0.9% 100 ML IV SCH (09:06)
== END 2022-09-09 13:56 | disposition home or self-care (01) | DRG 189 ==
LOC: N.ED 11:13 → SUATTDRO 13:59 → N.EDINP 13:59 → N.5E 16:05
PROVIDERS: ADMIT Emergency Medicine; ATTEND Internal Medicine

== ENCOUNTER 2022-11-19 19:03 | Inpatient (IN) ==
[2022-11-19] MEDS ORDERED: SODIUM CHLORIDE 0.9% 1,000 ML IV STA ×2 (19:23→20:24)
[2022-11-19] MEDS ORDERED: ONDANSETRON 4 MG/2 ML VIAL ONE (19:38)
[2022-11-19 19:41] LABS: INR 1.1; PT Patient Result 11.6 SECS (10.1-12.1); Partial Thromboplastin Time 26.8 SECS (23.7-32.9)
[2022-11-19] MEDS ORDERED: ONDANSETRON 4 MG/2 ML VIAL IV STA (19:44)
[2022-11-19 19:47] LABS: Albumin 3.1 G/DL (3.4-5.0); Bilirubin,Total 0.7 MG/DL (0.20-1.00); Calcium 8.4 MG/DL (8.5-10.1); Osmolality,Calculated 333.9 MOS/KG (273-304)
[2022-11-19 19:50] LABS: Basophils % 0.2 % (0.0-0.8); Hematocrit 44.4 VOL% (35.7-47.0); Hemoglobin 12.3 GM/DL (12.0-16.0); Immature Granulocytes % 1.1 %; Immature Granulocytes Absolute 0.22 #; Lymphocytes % 4.9 % (21.3-54.2); Mean Corpuscular HGB Conc 27.7 GM/DL (32-36); Mean Corpuscular Volume 90.2 FL (87-102); Mean Platelet Volume 12.4 FL (9.6-12.0); NRBC # 0.05 10*3/uL; Neutrophils % 88.8 % (38.7-73.9); Platelet Count 231 T/CUMM (130-400); Red Blood Count 4.92 MC/CUMM (3.8-5.5); Red Cell Distribution Width 16.1 % (9.3-17.3); White Blood Count 20.1 T/CUMM (4-12)
[2022-11-19 20:19] LABS: Band Neutrophils 2 % (0-10); Lymphocytes 3 % (20-55); Total Cells Counted 100
[2022-11-19] MEDS ORDERED: INSULIN REGULAR 100 UNIT/ML IV STA (20:22)
[2022-11-19 20:32] LABS: Burr Cells Slight; Platelet Estimate Normal
[2022-11-19 20:42] LABS: Potassium 7.5 MMOL/L (3.5-5.1)
[2022-11-19] MEDS ORDERED: PIPERACILLIN/TAZOBACTAM 3,375 MG in SODIUM CHLORIDE 0.9% 100 ML IV STA (20:50)
[2022-11-19 21:06] LABS: Bacteria,Urine Occasional /HPF (Few); Mucus,Urine Occasional /LPF (Occasional); Protein,Urine >=300 mg/dL (Negative); RBC,Urine <1 /HPF (0-4); Squamous Epithelial Cell,Urine Occasional /HPF (0-10); Urine Appearance Clear (Clear); Urine Color Yellow (Yellow); Urine Specific Gravity 1.015 (1.001-1.035)
[2022-11-19 21:07] LABS: Bilirubin,Urine Negative (Negative); Blood, Urine Moderate mg/dL (Negative); Glucose,Urine (UA) >=1000 mg/dL (Negative); Ketones,Urine Negative (Negative); Nitrite,Urine Negative (Negative); Urine Urobilinogen 0.2 eU/dL (<2.0)
[2022-11-19] MEDS ORDERED: CALCIUM CHLORIDE 1,000 MG/10 ML SYRINGE IV STA (21:11)
[2022-11-19] MEDS ORDERED: SODIUM BICARBONATE 50 MEQ/50 ML VIAL IV STA (21:11)
[2022-11-19 21:19] LABS: Barbiturates Screen,Urine Negative (Negative); Benzodiazepines Screen,Urine Negative (Negative); Cannabinoid Screen,Urine Negative (Negative); Opiate Screen,Urine Negative (Negative); Phencyclidine Screen,Urine Negative (Negative)
[2022-11-19] MEDS ORDERED: SODIUM CHLORIDE 0.9% 2,000 ML IV ONE (21:48)
[2022-11-19] MEDS ORDERED: DEXTROSE 10% 250 ML BAG IV PRN ×2 (22:00)
[2022-11-19 22:16] LABS: ABG Base Excess -15.9 MMOL/L (-2.5-2.5); ABG HCO3 12.4 MMOL/L (20-26); ABG Oxygen Saturation 97.7 % (95-100); ABG PCO2 41.9 MM HG (35-48); ABG TCO2 12.6 MMOL/L (23-27)
[2022-11-19 22:18] LABS: ABG PH 7.109 (7.35-7.45)
[2022-11-19] MEDS ORDERED: SODIUM BICARBONATE 50 MEQ/50 ML VIAL IV ONE (22:19)
[2022-11-19 22:33] LABS: Calcium 8.6 MG/DL (8.5-10.1)
[2022-11-19] MEDS: INSULIN REGULAR DRIP 100 ML IV SCH (22:51)
[2022-11-19] MEDS: ENOXAPARIN 30 MG/0.3 ML SYRINGE SUBCUT SCH (22:51)
[2022-11-20 00:23] LABS: ABG HCO3 15.2 MMOL/L (20-26); ABG Oxygen Saturation 97.6 % (95-100); ABG PCO2 49.4 MM HG (35-48); ABG TCO2 15.9 MMOL/L (23-27)
[2022-11-20 00:24] LABS: ABG PH 7.152 (7.35-7.45)
[2022-11-20] MEDS ORDERED: SODIUM BICARBONATE 50 MEQ/50 ML VIAL IV ONE (00:27)
[2022-11-20] MEDS ORDERED: ROCURONIUM 100 MG/10 ML VIAL IV ONE ×2 (01:59→02:08)
[2022-11-20] MEDS ORDERED: ETOMIDATE 20 MG/10 ML VIAL IV ONE ×2 (01:59→02:07)
[2022-11-20] MEDS ORDERED: NOREPINEPHRINE DRIP 8 MG/250 ML PREMIX IV PRN (02:09)
[2022-11-20] MEDS ORDERED: NOREPINEPHRINE DRIP 8 MG/250 ML PREMIX IV ONE (02:09)
[2022-11-20 02:11] LABS: Calcium 7.6 MG/DL (8.5-10.1); Osmolality,Calculated 346.1 MOS/KG (273-304); Potassium 4.4 MMOL/L (3.5-5.1)
[2022-11-20] MEDS ORDERED: EPINEPHrine 1 MG/10 ML SYRINGE IV ONE (02:11)
[2022-11-20] MEDS ORDERED: propofoL 200 MG/20 ML VIAL IV ONE (02:23)
[2022-11-20] MEDS ORDERED: SODIUM CHLORIDE 0.9% 1,000 ML IV ONE (02:51)
[2022-11-20 03:37] LABS: Basophils % 0.2 % (0.0-0.8); Hematocrit 31.8 VOL% (35.7-47.0); Hemoglobin 10.2 GM/DL (12.0-16.0); Immature Granulocytes % 0.7 %; Immature Granulocytes Absolute 0.14 #; Lymphocytes # 1.2 10*3/uL (1.4-4.0); Lymphocytes % 6.3 % (21.3-54.2); Mean Corpuscular HGB Conc 32.1 GM/DL (32-36); Mean Corpuscular Volume 78.9 FL (87-102); Mean Platelet Volume 11.9 FL (9.6-12.0); Monocytes # 1.3 10*3/uL (0.11-0.8); Monocytes % 6.7 % (1.7-12.7); NRBC # 0.02 10*3/uL; Neutrophils % 86.1 % (38.7-73.9); Platelet Count 259 T/CUMM (130-400); Red Blood Count 4.03 MC/CUMM (3.8-5.5); Red Cell Distribution Width 15.2 % (9.3-17.3); White Blood Count 19.7 T/CUMM (4-12)
[2022-11-20 03:40] LABS: ABG Base Excess -9.1 MMOL/L (-2.5-2.5); ABG HCO3 17.1 MMOL/L (20-26); ABG Oxygen Saturation 99.1 % (95-100); ABG PCO2 28.6 MM HG (35-48); ABG PH 7.343 (7.35-7.45); ABG TCO2 14.3 MMOL/L (23-27)
[2022-11-20 03:53] LABS: Calcium 7.3 MG/DL (8.5-10.1); Osmolality,Calculated 346.8 MOS/KG (273-304); Potassium 4.1 MMOL/L (3.5-5.1)
[2022-11-20] MEDS: MIDAZOLAM DRIP 100 MG/100 ML PREMIX IV PRN ×2 (04:43→14:15)
[2022-11-20] MEDS: SODIUM CHLORIDE 0.45% 1,000 ML IV SCH ×5 (05:14→23:51)
[2022-11-20 10:00] LABS: Calcium 7.6 MG/DL (8.5-10.1); Osmolality,Calculated 336.5 MOS/KG (273-304); Potassium 3.5 MMOL/L (3.5-5.1)
[2022-11-20] MEDS: POTASSIUM CHLORIDE RIDER 20 MEQ/100 ML PREMIX IV SCH ×4 (11:00→18:52)
[2022-11-20 13:59] LABS: Calcium 7.7 MG/DL (8.5-10.1); Osmolality,Calculated 322.7 MOS/KG (273-304); Potassium 4.4 MMOL/L (3.5-5.1)
[2022-11-20] MEDS ORDERED: SODIUM CHLORIDE 0.45% 1,000 ML IV SCH (15:00)
[2022-11-20 17:55] LABS: Calcium 7.5 MG/DL (8.5-10.1); Osmolality,Calculated 316.5 MOS/KG (273-304); Potassium 3.7 MMOL/L (3.5-5.1)
[2022-11-20] MEDS: INSULIN GLARGINE 100 UNIT/ML SUBCUT SCH (18:52)
[2022-11-20] MEDS: LEVOTHYROXINE 100 MCG VIAL IV SCH (20:18)
[2022-11-20] MEDS: LIOTHYRONINE 25 MCG TABLET PER TUBE SCH (20:19)
[2022-11-20 20:26] LABS: Total Protein 12 Hr Ur Result 1034 MG/12HR (0-75)
[2022-11-20] MEDS: fentaNYL INJ 1,250 MCG in SODIUM CHLORIDE 0.9% 225 ML IV PRN (20:27)
[2022-11-20 21:33] LABS: Calcium 7.1 MG/DL (8.5-10.1); Osmolality,Calculated 317.1 MOS/KG (273-304); Potassium 3.5 MMOL/L (3.5-5.1)
[2022-11-20] MEDS: ENOXAPARIN 30 MG/0.3 ML SYRINGE SUBCUT SCH (21:41)
[2022-11-21] MEDS: INSULIN REGULAR DRIP 100 ML IV SCH ×2 (01:08→23:19)
[2022-11-21 01:59] LABS: Calcium 7.4 MG/DL (8.5-10.1); Potassium 3.2 MMOL/L (3.5-5.1)
[2022-11-21] MEDS: SODIUM CHLORIDE 0.45% 1,000 ML IV SCH ×3 (02:19→16:30)
[2022-11-21] MEDS: POTASSIUM CHLORIDE RIDER 20 MEQ/100 ML PREMIX IV SCH ×2 (02:19→04:13)
[2022-11-21] MEDS: MIDAZOLAM DRIP 100 MG/100 ML PREMIX IV PRN (03:13)
[2022-11-21 03:28] LABS: ABG Base Excess -6.2 MMOL/L (-2.5-2.5); ABG HCO3 19.3 MMOL/L (20-26); ABG Oxygen Saturation 98.9 % (95-100); ABG PH 7.509 (7.35-7.45); ABG TCO2 14.3 MMOL/L (23-27)
[2022-11-21 03:34] LABS: ABG PCO2 19.6 MM HG (35-48)
[2022-11-21 03:46] LABS: Calcium 6.9 MG/DL (8.5-10.1); Potassium 3.6 MMOL/L (3.5-5.1)
[2022-11-21] MEDS ORDERED: MAGNESIUM SULF RIDER 2 GM/50 ML PREMIX IV ONE (04:08)
[2022-11-21] MEDS: LIOTHYRONINE 25 MCG TABLET PER TUBE SCH (06:09)
[2022-11-21] MEDS: INSULIN GLARGINE 100 UNIT/ML SUBCUT SCH (08:18)
[2022-11-21 08:55] LABS: Protein/Creatinine Ratio,Urine 2.7 RATIO
[2022-11-21] MEDS: LEVOTHYROXINE 100 MCG VIAL IV SCH (10:19)
[2022-11-21 12:50] LABS: ABG Base Excess -4.8 MMOL/L (-2.5-2.5); ABG HCO3 20.5 MMOL/L (20-26); ABG Oxygen Saturation 97.9 % (95-100); ABG PCO2 32.8 MM HG (35-48); ABG PH 7.384 (7.35-7.45); ABG TCO2 17.9 MMOL/L (23-27)
[2022-11-21 12:58] LABS: Calcium 7.2 MG/DL (8.5-10.1); Osmolality,Calculated 301.7 MOS/KG (273-304); Potassium 3.5 MMOL/L (3.5-5.1)
[2022-11-21] MEDS ORDERED: FLUCONAZOLE IV ONE (22:01)
[2022-11-21] MEDS: ENOXAPARIN 30 MG/0.3 ML SYRINGE SUBCUT SCH (22:28)
[2022-11-22] MEDS: LACTATED RINGERS 1,000 ML IV SCH ×4 (00:08→23:55)
[2022-11-22] MEDS: INSULIN REGULAR DRIP 100 ML IV SCH (01:15)
[2022-11-22 03:51] LABS: ABG Base Excess -5.8 MMOL/L (-2.5-2.5); ABG HCO3 19.6 MMOL/L (20-26); ABG Oxygen Saturation 97.6 % (95-100); ABG PCO2 35.2 MM HG (35-48); ABG PH 7.345 (7.35-7.45); ABG TCO2 17.6 MMOL/L (23-27)
[2022-11-22 04:08] LABS: Calcium 7.4 MG/DL (8.5-10.1); Osmolality,Calculated 293.5 MOS/KG (273-304); Potassium 3.4 MMOL/L (3.5-5.1)
[2022-11-22 04:26] LABS: Basophils % 0.1 % (0.0-0.8); Eosinophils # 0.2 10*3/uL (0.0-0.87); Eosinophils % 1.2 % (0.00-10.9); Hematocrit 26.3 VOL% (35.7-47.0); Hemoglobin 8.7 GM/DL (12.0-16.0); Immature Granulocytes % 1.5 %; Immature Granulocytes Absolute 0.21 #; Lymphocytes # 1.9 10*3/uL (1.4-4.0); Lymphocytes % 13.8 % (21.3-54.2); Mean Corpuscular HGB Conc 33.1 GM/DL (32-36); Mean Corpuscular Volume 75.6 FL (87-102); Mean Platelet Volume 11.2 FL (9.6-12.0); Monocytes # 0.8 10*3/uL (0.11-0.8); Monocytes % 5.8 % (1.7-12.7); NRBC # 0.06 10*3/uL; Neutrophils % 77.6 % (38.7-73.9); Platelet Count 191 T/CUMM (130-400); Red Blood Count 3.48 MC/CUMM (3.8-5.5); Red Cell Distribution Width 14.9 % (9.3-17.3); White Blood Count 13.9 T/CUMM (4-12)
[2022-11-22] MEDS ORDERED: POTASSIUM CHLORIDE RIDER 20 MEQ/100 ML PREMIX IV PRN (05:28)
[2022-11-22] MEDS: MIDAZOLAM DRIP 100 MG/100 ML PREMIX IV PRN ×3 (05:31→22:34)
[2022-11-22] MEDS ORDERED: LEVOTHYROXINE 100 MCG VIAL IV SCH (07:00)
[2022-11-22] MEDS: LIOTHYRONINE 25 MCG TABLET PER TUBE SCH (07:12)
[2022-11-22] MEDS ORDERED: INSULIN LISPRO 100 UNIT/ML SUBCUT SCH (07:30)
[2022-11-22] MEDS: LEVOTHYROXINE 125 MCG TABLET PO SCH (08:29)
[2022-11-22] MEDS: INSULIN GLARGINE 100 UNIT/ML SUBCUT SCH (09:09)
[2022-11-22] MEDS: POTASSIUM CHLORIDE RIDER 10 MEQ/100 ML PREMIX IV PRN (10:01)
[2022-11-22] MEDS: INSULIN LISPRO 100 UNIT/ML SUBCUT SCH ×3 (12:16→23:54)
[2022-11-22] MEDS: fentaNYL INJ 1,250 MCG in SODIUM CHLORIDE 0.9% 225 ML IV PRN (19:37)
[2022-11-22] MEDS ORDERED: DOCUSATE SODIUM 100 MG CAPSULE PO SCH (21:00)
[2022-11-22] MEDS: ENOXAPARIN 30 MG/0.3 ML SYRINGE SUBCUT SCH (22:30)
[2022-11-23 04:28] LABS: ABG Base Excess -5.6 MMOL/L (-2.5-2.5); ABG HCO3 19.8 MMOL/L (20-26); ABG Oxygen Saturation 98.4 % (95-100); ABG PCO2 35.2 MM HG (35-48); ABG PH 7.349 (7.35-7.45); ABG TCO2 17.4 MMOL/L (23-27)
[2022-11-23 04:31] LABS: Basophils % 0.2 % (0.0-0.8); Eosinophils # 0.3 10*3/uL (0.0-0.87); Eosinophils % 2.3 % (0.00-10.9); Hematocrit 23.5 VOL% (35.7-47.0); Hemoglobin 7.6 GM/DL (12.0-16.0); Immature Granulocytes % 1.3 %; Lymphocytes # 1.8 10*3/uL (1.4-4.0); Lymphocytes % 12.2 % (21.3-54.2); Mean Corpuscular HGB Conc 32.3 GM/DL (32-36); Mean Corpuscular Volume 78.1 FL (87-102); Mean Platelet Volume 10.7 FL (9.6-12.0); Monocytes # 1.2 10*3/uL (0.11-0.8); Monocytes % 7.9 % (1.7-12.7); NRBC # 0.07 10*3/uL; Neutrophils % 76.1 % (38.7-73.9); Platelet Count 167 T/CUMM (130-400); Red Blood Count 3.01 MC/CUMM (3.8-5.5); Red Cell Distribution Width 15.4 % (9.3-17.3)
[2022-11-23 04:47] LABS: Calcium 7.7 MG/DL (8.5-10.1); Osmolality,Calculated 300.8 MOS/KG (273-304); Potassium 3.8 MMOL/L (3.5-5.1)
[2022-11-23] MEDS: INSULIN LISPRO 100 UNIT/ML SUBCUT SCH ×3 (06:40→17:29)
[2022-11-23] MEDS: LACTATED RINGERS 1,000 ML IV SCH ×3 (07:55→23:07)
[2022-11-23] MEDS: LEVOTHYROXINE 125 MCG TABLET PO SCH (07:57)
[2022-11-23] MEDS: LIOTHYRONINE 25 MCG TABLET PER TUBE SCH (07:57)
[2022-11-23] MEDS ORDERED: MAGNESIUM SULF RIDER 2 GM/50 ML PREMIX IV ONE (07:57)
[2022-11-23] MEDS: FAMOTIDINE 20 MG/2 ML VIAL IV SCH (09:49)
[2022-11-23] MEDS: INSULIN GLARGINE 100 UNIT/ML SUBCUT SCH (09:50)
[2022-11-23] MEDS: MIDAZOLAM DRIP 100 MG/100 ML PREMIX IV PRN (15:00)
[2022-11-23] MEDS: fentaNYL INJ 1,250 MCG in SODIUM CHLORIDE 0.9% 225 ML IV PRN (15:45)
[2022-11-23] MEDS: LEVOFLOXACIN 750 MG TABLET PO SCH (21:09)
[2022-11-23] MEDS: ENOXAPARIN 30 MG/0.3 ML SYRINGE SUBCUT SCH (21:10)
[2022-11-24] MEDS: INSULIN LISPRO 100 UNIT/ML SUBCUT SCH ×4 (00:08→19:46)
[2022-11-24 03:50] LABS: Basophils % 0.3 % (0.0-0.8); Eosinophils # 0.3 10*3/uL (0.0-0.87); Eosinophils % 4.3 % (0.00-10.9); Hematocrit 25.3 VOL% (35.7-47.0); Hemoglobin 8.1 GM/DL (12.0-16.0); Immature Granulocytes % 1.7 %; Immature Granulocytes Absolute 0.11 #; Lymphocytes % 15.4 % (21.3-54.2); Mean Corpuscular Volume 77.6 FL (87-102); Monocytes # 1.1 10*3/uL (0.11-0.8); Monocytes % 17.3 % (1.7-12.7); NRBC # 0.11 10*3/uL; Platelet Count 184 T/CUMM (130-400); Red Blood Count 3.26 MC/CUMM (3.8-5.5); Red Cell Distribution Width 15.5 % (9.3-17.3); White Blood Count 6.3 T/CUMM (4-12)
[2022-11-24 03:54] LABS: Arterial Bicarbonate iSTAT 20.1 MMOL/L (20-26); Arterial pH iSTAT 7.365 (7.35-7.45)
[2022-11-24 03:57] LABS: Calcium 7.7 MG/DL (8.5-10.1); Potassium 4.5 MMOL/L (3.5-5.1)
[2022-11-24 04:16] LABS: Eosinophils 4 % (0-10); Lymphocytes 12 % (20-55); Nucleated Red Blood Cells 3 /100 WBC (0-5); Total Cells Counted 100
[2022-11-24 04:17] LABS: Hypochromia 1+; Microcytosis 1+; Platelet Estimate Adequate
[2022-11-24] MEDS: LIOTHYRONINE 25 MCG TABLET PER TUBE SCH (06:04)
[2022-11-24] MEDS: FAMOTIDINE 20 MG/2 ML VIAL IV SCH (08:49)
[2022-11-24] MEDS: INSULIN GLARGINE 100 UNIT/ML SUBCUT SCH (08:50)
[2022-11-24] MEDS: LEVOTHYROXINE 125 MCG TABLET PO SCH (08:50)
[2022-11-24] MEDS: LACTATED RINGERS 1,000 ML IV SCH ×2 (08:51→19:07)
[2022-11-24 12:11] LABS: Myeloperoxidase Antibody < 0.2 U
[2022-11-24] MEDS: METOPROLOL TARTRATE 50 MG TABLET PO SCH ×2 (12:33→20:50)
[2022-11-24] MEDS ORDERED: VANCOMYCIN INJ 1,250 MG in SODIUM CHLORIDE 0.9% 250 ML IV ONE (18:00)
[2022-11-24 18:21] LABS: Antinuclear Ab, S 0.3 U
[2022-11-24] MEDS: ENOXAPARIN 30 MG/0.3 ML SYRINGE SUBCUT SCH (21:05)
[2022-11-24] MEDS ORDERED: LORazepam 2 MG/1 ML VIAL IV PRN (23:30)
[2022-11-25] MEDS: INSULIN LISPRO 100 UNIT/ML SUBCUT SCH ×4 (00:14→18:28)
[2022-11-25] MEDS: LACTATED RINGERS 1,000 ML IV SCH (03:00)
[2022-11-25 03:41] LABS: ABG Base Excess -1.8 MMOL/L (-2.5-2.5); ABG HCO3 22.9 MMOL/L (20-26); ABG Oxygen Saturation 98.3 % (95-100); ABG PCO2 37.9 MM HG (35-48); ABG PH 7.388 (7.35-7.45); ABG TCO2 21.6 MMOL/L (23-27)
[2022-11-25 03:50] LABS: Basophils % 0.2 % (0.0-0.8); Eosinophils # 0.2 10*3/uL (0.0-0.87); Eosinophils % 2.6 % (0.00-10.9); Hematocrit 22.4 VOL% (35.7-47.0); Immature Granulocytes % 2.6 %; Immature Granulocytes Absolute 0.24 #; Lymphocytes # 1.4 10*3/uL (1.4-4.0); Lymphocytes % 15.5 % (21.3-54.2); Mean Corpuscular HGB Conc 31.3 GM/DL (32-36); Mean Corpuscular Volume 79.2 FL (87-102); Mean Platelet Volume 9.8 FL (9.6-12.0); Monocytes # 1.7 10*3/uL (0.11-0.8); Monocytes % 18.8 % (1.7-12.7); Neutrophils % 60.3 % (38.7-73.9); Platelet Count 184 T/CUMM (130-400); Red Blood Count 2.83 MC/CUMM (3.8-5.5); Red Cell Distribution Width 15.8 % (9.3-17.3); White Blood Count 9.1 T/CUMM (4-12)
[2022-11-25 04:02] LABS: Alanine Aminotransferase 14 U/L (13-56); Albumin 1.5 G/DL (3.4-5.0); Alkaline Phosphatase 115 U/L (45-117); Aspartate Amino Transferase 11 U/L (0-37); Bilirubin,Total < 0.39 MG/DL (0.20-1.00); Blood Urea Nitrogen 35 MG/DL (7-18); Calcium 7.6 MG/DL (8.5-10.1); Carbon Dioxide 23 MMOL/L (21-32); Chloride 115 MMOL/L (98-107); Glucose 290 MG/DL (74-106); Osmolality,Calculated 306.7 MOS/KG (273-304); Potassium 4.5 MMOL/L (3.5-5.1); Sodium 145 MMOL/L (136-145); Total Protein 5.4 G/DL (6.4-8.2)
[2022-11-25 04:29] LABS: Band Neutrophils 2 % (0-10); Eosinophils 4 % (0-10); Hypochromia Slight; Lymphocytes 9 % (20-55); Microcytosis Slight; Nucleated Red Blood Cells 5 /100 WBC (0-5); Platelet Estimate Adequate; Total Cells Counted 100
[2022-11-25] MEDS: LIOTHYRONINE 25 MCG TABLET PER TUBE SCH (06:26)
[2022-11-25] MEDS: LEVOTHYROXINE 125 MCG TABLET PO SCH (06:26)
[2022-11-25] MEDS: METOPROLOL TARTRATE 50 MG TABLET PO SCH ×2 (08:40→21:23)
[2022-11-25] MEDS: hydrALAZINE 20 MG/1 ML VIAL IV PRN (08:40)
[2022-11-25] MEDS: FAMOTIDINE 20 MG/2 ML VIAL IV SCH (08:40)
[2022-11-25] MEDS: INSULIN GLARGINE 100 UNIT/ML SUBCUT SCH (08:40)
[2022-11-25] MEDS ORDERED: INSULIN GLARGINE 100 UNIT/ML SUBCUT ONE (11:00)
[2022-11-25] MEDS ORDERED: VANCOMYCIN INJ 1,250 MG in SODIUM CHLORIDE 0.9% 250 ML IV ONE (12:00)
[2022-11-25] MEDS: FUROSEMIDE 40 MG/4 ML VIAL IV SCH (12:19)
[2022-11-25] MEDS ORDERED: VANCOMYCIN INJ 1,250 MG in SODIUM CHLORIDE 0.9% 250 ML IV PRN (18:00)
[2022-11-25] MEDS: ENOXAPARIN 30 MG/0.3 ML SYRINGE SUBCUT SCH (21:03)
[2022-11-25] MEDS: LEVOFLOXACIN 750 MG TABLET PO SCH (21:26)
[2022-11-26] MEDS: INSULIN LISPRO 100 UNIT/ML SUBCUT SCH ×4 (00:07→18:00)
[2022-11-26] MEDS ORDERED: ONDANSETRON 4 MG/2 ML VIAL IV PRN (01:25)
[2022-11-26] MEDS: MORPHINE 2 MG/1 ML SYRINGE IV PRN (01:37)
[2022-11-26] MEDS ORDERED: LORazepam 2 MG/1 ML VIAL IV ONE (03:15)
[2022-11-26 03:51] LABS: Arterial Base Excess iSTAT 0 MMOL/L (-2.5-2.5); Arterial O2 Saturation iSTAT 99 % (95-100); Arterial PCO2 iSTAT 37 MM HG (35-48); Arterial PO2 iSTAT 126 MM HG (80-95); Arterial Total CO2 iSTAT 25 MMO/L (23-27); Arterial pH iSTAT 7.417 (7.35-7.45)
[2022-11-26 04:04] LABS: Basophils % 0.2 % (0.0-0.8); Eosinophils # 0.3 10*3/uL (0.0-0.87); Eosinophils % 3.6 % (0.00-10.9); Hematocrit 23.5 VOL% (35.7-47.0); Hemoglobin 7.3 GM/DL (12.0-16.0); Immature Granulocytes % 2.1 %; Immature Granulocytes Absolute 0.19 #; Lymphocytes # 1.2 10*3/uL (1.4-4.0); Lymphocytes % 13.2 % (21.3-54.2); Mean Corpuscular HGB Conc 31.1 GM/DL (32-36); Mean Corpuscular Volume 80.2 FL (87-102); Mean Platelet Volume 9.8 FL (9.6-12.0); Monocytes # 1.2 10*3/uL (0.11-0.8); Monocytes % 12.8 % (1.7-12.7); NRBC # 0.09 10*3/uL; Neutrophils % 68.1 % (38.7-73.9); Platelet Count 223 T/CUMM (130-400); Red Blood Count 2.93 MC/CUMM (3.8-5.5); Red Cell Distribution Width 15.8 % (9.3-17.3); White Blood Count 9.1 T/CUMM (4-12)
[2022-11-26 04:18] LABS: % Iron Saturation 15.8 % (18-50); Calcium 8.3 MG/DL (8.5-10.1); Potassium 4.3 MMOL/L (3.5-5.1)
[2022-11-26 04:26] LABS: Folate 6.8 NG/ML (5.38-24.0)
[2022-11-26] MEDS: hydrALAZINE 20 MG/1 ML VIAL IV PRN (05:24)
[2022-11-26] MEDS: LEVOTHYROXINE 125 MCG TABLET PO SCH (06:16)
[2022-11-26] MEDS: LIOTHYRONINE 25 MCG TABLET PER TUBE SCH (06:16)
[2022-11-26] MEDS: METOPROLOL TARTRATE 50 MG TABLET PO SCH ×2 (09:57→21:58)
[2022-11-26] MEDS: FUROSEMIDE 40 MG/4 ML VIAL IV SCH (09:58)
[2022-11-26] MEDS: INSULIN GLARGINE 100 UNIT/ML SUBCUT SCH (09:58)
[2022-11-26] MEDS: FAMOTIDINE 20 MG/2 ML VIAL IV SCH (10:00)
[2022-11-26] MEDS: METOCLOPRAMIDE 10 MG/2 ML VIAL IV SCH ×3 (11:33→22:01)
[2022-11-26] MEDS: ALBUTEROL 1.25 MG/3 ML NEB RESP TX SCH ×2 (12:39→19:00)
[2022-11-26] MEDS: ENOXAPARIN 30 MG/0.3 ML SYRINGE SUBCUT SCH (22:01)
[2022-11-27] MEDS: INSULIN LISPRO 100 UNIT/ML SUBCUT SCH ×4 (00:01→18:16)
[2022-11-27] MEDS: MORPHINE 2 MG/1 ML SYRINGE IV PRN ×4 (00:03→16:40)
[2022-11-27] MEDS: ALBUTEROL 1.25 MG/3 ML NEB RESP TX SCH ×4 (00:40→19:37)
[2022-11-27 04:40] LABS: Basophils % 0.4 % (0.0-0.8); Eosinophils # 0.3 10*3/uL (0.0-0.87); Eosinophils % 3.3 % (0.00-10.9); Hemoglobin 8.5 GM/DL (12.0-16.0); Immature Granulocytes % 3.9 %; Immature Granulocytes Absolute 0.37 #; Lymphocytes # 1.5 10*3/uL (1.4-4.0); Mean Corpuscular HGB Conc 30.4 GM/DL (32-36); Mean Corpuscular Volume 81.4 FL (87-102); Mean Platelet Volume 9.6 FL (9.6-12.0); Monocytes % 10.7 % (1.7-12.7); NRBC # 0.12 10*3/uL; Neutrophils % 65.7 % (38.7-73.9); Platelet Count 256 T/CUMM (130-400); Red Blood Count 3.44 MC/CUMM (3.8-5.5); Red Cell Distribution Width 15.8 % (9.3-17.3); White Blood Count 9.4 T/CUMM (4-12)
[2022-11-27 05:03] LABS: Osmolality,Calculated 301.8 MOS/KG (273-304); Potassium 4.4 MMOL/L (3.5-5.1)
[2022-11-27 05:04] LABS: Arterial Base Excess iSTAT 1 MMOL/L (-2.5-2.5); Arterial Bicarbonate iSTAT 26.5 MMOL/L (20-26); Arterial O2 Saturation iSTAT 98 % (95-100); Arterial PCO2 iSTAT 44 MM HG (35-48); Arterial PO2 iSTAT 113 MM HG (80-95); Arterial Total CO2 iSTAT 28 MMO/L (23-27)
[2022-11-27] MEDS: LIOTHYRONINE 25 MCG TABLET PER TUBE SCH (06:31)
[2022-11-27] MEDS: METOCLOPRAMIDE 10 MG/2 ML VIAL IV SCH ×3 (06:31→21:01)
[2022-11-27] MEDS: LEVOTHYROXINE 125 MCG TABLET PO SCH (06:32)
[2022-11-27 07:25] LABS: Band Neutrophils 14 % (0-10); Eosinophils 4 % (0-10); Lymphocytes 20 % (20-55); Nucleated Red Blood Cells 5 /100 WBC (0-5); Platelet Estimate Normal; Total Cells Counted 100
[2022-11-27 07:29] LABS: Anisocytosis 1+
[2022-11-27 07:30] LABS: Target Cells Few
[2022-11-27] MEDS: FUROSEMIDE 40 MG/4 ML VIAL IV SCH (09:22)
[2022-11-27] MEDS: FAMOTIDINE 20 MG/2 ML VIAL IV SCH (09:22)
[2022-11-27] MEDS: INSULIN GLARGINE 100 UNIT/ML SUBCUT SCH (09:22)
[2022-11-27] MEDS: METOPROLOL TARTRATE 50 MG TABLET PO SCH ×2 (09:23→20:58)
[2022-11-27] MEDS ORDERED: VANCOMYCIN INJ 1,250 MG in SODIUM CHLORIDE 0.9% 250 ML IV ONE (12:00)
[2022-11-27] MEDS: FERRIC GLUCONATE COMPLEX 125 MG in SODIUM CHLORIDE 0.9% 100 ML IV SCH (12:16)
[2022-11-27] MEDS ORDERED: METOPROLOL TARTRATE 5 MG/5 ML VIAL IV ONE (13:04)
[2022-11-27] MEDS: HALOPERIDOL 5 MG/ML AMP IM PRN ×2 (15:21→17:59)
[2022-11-27] MEDS: LEVOFLOXACIN 750 MG TABLET PO SCH (20:58)
[2022-11-27] MEDS: QUEtiapine 25 MG TABLET PO SCH (20:58)
[2022-11-27] MEDS: ENOXAPARIN 30 MG/0.3 ML SYRINGE SUBCUT SCH (21:00)
[2022-11-28] MEDS: INSULIN LISPRO 100 UNIT/ML SUBCUT SCH ×5 (00:05→18:27)
[2022-11-28] MEDS: ALBUTEROL 1.25 MG/3 ML NEB RESP TX SCH ×4 (01:07→18:55)
[2022-11-28 04:08] LABS: Arterial Base Excess iSTAT 4 MMOL/L (-2.5-2.5); Arterial Bicarbonate iSTAT 28.6 MMOL/L (20-26); Arterial O2 Saturation iSTAT 98 % (95-100); Arterial PCO2 iSTAT 45 MM HG (35-48); Arterial PO2 iSTAT 104 MM HG (80-95); Arterial Total CO2 iSTAT 30 MMO/L (23-27); Arterial pH iSTAT 7.408 (7.35-7.45)
[2022-11-28] MEDS: LIOTHYRONINE 25 MCG TABLET PER TUBE SCH (06:08)
[2022-11-28] MEDS: METOCLOPRAMIDE 10 MG/2 ML VIAL IV SCH ×3 (06:08→21:37)
[2022-11-28] MEDS: LEVOTHYROXINE 125 MCG TABLET PO SCH (06:08)
[2022-11-28 06:40] LABS: Basophils % 0.2 % (0.0-0.8); Eosinophils # 0.3 10*3/uL (0.0-0.87); Eosinophils % 3.2 % (0.00-10.9); Hemoglobin 7.9 GM/DL (12.0-16.0); Immature Granulocytes % 2.7 %; Immature Granulocytes Absolute 0.28 #; Lymphocytes # 1.4 10*3/uL (1.4-4.0); Lymphocytes % 13.1 % (21.3-54.2); Mean Corpuscular HGB Conc 30.4 GM/DL (32-36); Mean Corpuscular Volume 80.7 FL (87-102); Mean Platelet Volume 9.4 FL (9.6-12.0); Monocytes # 0.9 10*3/uL (0.11-0.8); Monocytes % 8.7 % (1.7-12.7); NRBC # 0.18 10*3/uL; Neutrophils % 72.1 % (38.7-73.9); Platelet Count 259 T/CUMM (130-400); Red Blood Count 3.22 MC/CUMM (3.8-5.5); Red Cell Distribution Width 16.1 % (9.3-17.3); White Blood Count 10.4 T/CUMM (4-12)
[2022-11-28] MEDS: FUROSEMIDE 40 MG/4 ML VIAL IV SCH (09:30)
[2022-11-28] MEDS: methylPREDNISolone SOD SUC 40 MG/1 ML VIAL IV SCH ×2 (09:31→15:07)
[2022-11-28] MEDS: FAMOTIDINE 20 MG/2 ML VIAL IV SCH (09:33)
[2022-11-28] MEDS: FERRIC GLUCONATE COMPLEX 125 MG in SODIUM CHLORIDE 0.9% 100 ML IV SCH (09:33)
[2022-11-28] MEDS: INSULIN GLARGINE 100 UNIT/ML SUBCUT SCH (09:44)
[2022-11-28] MEDS: METOPROLOL TARTRATE 50 MG TABLET PO SCH ×2 (09:44→21:05)
[2022-11-28 12:02] LABS: Calcium 8.8 MG/DL (8.5-10.1); Osmolality,Calculated 296.8 MOS/KG (273-304); Potassium 4.8 MMOL/L (3.5-5.1)
[2022-11-28] MEDS: hydrALAZINE 20 MG/1 ML VIAL IV PRN (16:23)
[2022-11-28] MEDS: QUEtiapine 25 MG TABLET PO SCH (21:38)
[2022-11-28] MEDS: ENOXAPARIN 30 MG/0.3 ML SYRINGE SUBCUT SCH (21:38)
[2022-11-29] MEDS: INSULIN LISPRO 100 UNIT/ML SUBCUT SCH ×4 (00:03→18:01)
[2022-11-29] MEDS: methylPREDNISolone SOD SUC 40 MG/1 ML VIAL IV SCH ×3 (00:03→15:12)
[2022-11-29] MEDS: ALBUTEROL 1.25 MG/3 ML NEB RESP TX SCH ×4 (00:12→19:40)
[2022-11-29 03:52] LABS: Arterial Base Excess iSTAT 4 MMOL/L (-2.5-2.5); Arterial O2 Saturation iSTAT 98 % (95-100); Arterial PCO2 iSTAT 41 MM HG (35-48); Arterial PO2 iSTAT 94 MM HG (80-95); Arterial Total CO2 iSTAT 29 MMO/L (23-27); Arterial pH iSTAT 7.442 (7.35-7.45)
[2022-11-29 05:57] LABS: Basophils % 0.2 % (0.0-0.8); Hematocrit 24.4 VOL% (35.7-47.0); Hemoglobin 7.7 GM/DL (12.0-16.0); Immature Granulocytes % 3.9 %; Immature Granulocytes Absolute 0.73 #; Lymphocytes # 1.2 10*3/uL (1.4-4.0); Lymphocytes % 6.2 % (21.3-54.2); Mean Corpuscular HGB Conc 31.6 GM/DL (32-36); Mean Corpuscular Volume 79.7 FL (87-102); Monocytes # 0.4 10*3/uL (0.11-0.8); NRBC # 0.27 10*3/uL; Neutrophils % 87.7 % (38.7-73.9); Platelet Count 278 T/CUMM (130-400); Red Blood Count 3.06 MC/CUMM (3.8-5.5); Red Cell Distribution Width 15.7 % (9.3-17.3); White Blood Count 18.8 T/CUMM (4-12)
[2022-11-29] MEDS: LEVOTHYROXINE 125 MCG TABLET PO SCH (06:13)
[2022-11-29] MEDS: LIOTHYRONINE 25 MCG TABLET PER TUBE SCH (06:13)
[2022-11-29 06:16] LABS: Lymphocytes 7 % (20-55); Nucleated Red Blood Cells 1 /100 WBC (0-5); Phosphorous 5.5 MG/DL (2.5-4.9); Total Cells Counted 100
[2022-11-29 06:17] LABS: Hypochromia 1+; Microcytosis 1+; Platelet Estimate Adequate
[2022-11-29 06:21] LABS: Alanine Aminotransferase 10 U/L (13-56); Albumin 1.6 G/DL (3.4-5.0); Alkaline Phosphatase 115 U/L (45-117); Aspartate Amino Transferase 11 U/L (0-37); Bilirubin,Total < 0.39 MG/DL (0.20-1.00); Blood Urea Nitrogen 47 MG/DL (7-18); Calcium 8.7 MG/DL (8.5-10.1); Carbon Dioxide 26 MMOL/L (21-32); Chloride 109 MMOL/L (98-107); Glucose 270 MG/DL (74-106); Osmolality,Calculated 307.8 MOS/KG (273-304); Potassium 4.9 MMOL/L (3.5-5.1); Sodium 144 MMOL/L (136-145); Total Protein 6.2 G/DL (6.4-8.2)
[2022-11-29] MEDS: METOCLOPRAMIDE 10 MG/2 ML VIAL IV SCH ×3 (06:32→22:02)
[2022-11-29] MEDS: MORPHINE 2 MG/1 ML SYRINGE IV PRN ×2 (07:40→13:35)
[2022-11-29] MEDS: INSULIN GLARGINE 100 UNIT/ML SUBCUT SCH (08:08)
[2022-11-29] MEDS: FUROSEMIDE 40 MG/4 ML VIAL IV SCH (08:08)
[2022-11-29] MEDS: METOPROLOL TARTRATE 50 MG TABLET PO SCH ×2 (08:15→22:02)
[2022-11-29] MEDS: SODIUM CHLORIDE 0.45% 1,000 ML IV SCH (08:33)
[2022-11-29] MEDS: FERRIC GLUCONATE COMPLEX 125 MG in SODIUM CHLORIDE 0.9% 100 ML IV SCH (08:33)
[2022-11-29] MEDS: FAMOTIDINE 20 MG/2 ML VIAL IV SCH (08:34)
[2022-11-29] MEDS: ALBUTEROL/IPRATROPIUM 3 ML NEB RESP TX PRN ×2 (09:51→15:58)
[2022-11-29] MEDS: RACEPINEPHRINE 0.5 ML NEB RESP TX PRN ×4 (10:00→19:41)
[2022-11-29] MEDS ORDERED: methylPREDNISolone SOD SUC 125 MG/2 ML VIAL IV ONE ×2 (10:16→20:15)
[2022-11-29] MEDS ORDERED: MIDAZOLAM 10 MG/2 ML VIAL ONE (20:20)
[2022-11-29] MEDS ORDERED: ETOMIDATE 20 MG/10 ML VIAL IV ONE ×3 (20:21→22:32)
[2022-11-29] MEDS ORDERED: MIDAZOLAM 2 MG/2 ML VIAL IV ONE ×2 (20:33)
[2022-11-29] MEDS: MIDAZOLAM DRIP 100 MG/100 ML PREMIX IV PRN (20:39)
[2022-11-29] MEDS ORDERED: PHENYLEPHRINE DRIP 40 MG/250 ML PREMIX IV ONE (20:42)
[2022-11-29] MEDS ORDERED: PHENYLEPHRINE DRIP 40 MG/250 ML PREMIX IV PRN (20:52)
[2022-11-29] MEDS ORDERED: MIDAZOLAM DRIP 100 MG/100 ML PREMIX IV PRN (21:36)
[2022-11-29 21:49] LABS: ABG Base Excess -0.7 MMOL/L (-2.5-2.5); ABG HCO3 23.8 MMOL/L (20-26); ABG Oxygen Saturation 98.1 % (95-100); ABG PCO2 44.1 MM HG (35-48); ABG PH 7.358 (7.35-7.45); ABG TCO2 23.4 MMOL/L (23-27)
[2022-11-29] MEDS: LEVOFLOXACIN 750 MG TABLET PO SCH (22:03)
[2022-11-29] MEDS: QUEtiapine 25 MG TABLET PO SCH (22:03)
[2022-11-29] MEDS: ENOXAPARIN 30 MG/0.3 ML SYRINGE SUBCUT SCH (22:52)
[2022-11-30] MEDS: ALBUTEROL 1.25 MG/3 ML NEB RESP TX SCH ×4 (01:09→19:48)
[2022-11-30 03:05] LABS: ABG Base Excess 0.3 MMOL/L (-2.5-2.5); ABG HCO3 24.7 MMOL/L (20-26); ABG Oxygen Saturation 98.9 % (95-100); ABG PCO2 35.5 MM HG (35-48); ABG PH 7.443 (7.35-7.45); ABG TCO2 23.2 MMOL/L (23-27)
[2022-11-30] MEDS: methylPREDNISolone SOD SUC 40 MG/1 ML VIAL IV SCH ×3 (03:10→15:00)
[2022-11-30] MEDS: INSULIN LISPRO 100 UNIT/ML SUBCUT SCH ×4 (03:10→18:57)
[2022-11-30 05:23] LABS: Basophils % 0.1 % (0.0-0.8); Hematocrit 21.9 VOL% (35.7-47.0); Hemoglobin 6.7 GM/DL (12.0-16.0); Immature Granulocytes Absolute 1.16 #; Lymphocytes # 1.7 10*3/uL (1.4-4.0); Lymphocytes % 8.6 % (21.3-54.2); Mean Corpuscular HGB Conc 30.6 GM/DL (32-36); Mean Corpuscular Volume 81.7 FL (87-102); Mean Platelet Volume 9.3 FL (9.6-12.0); Monocytes # 0.4 10*3/uL (0.11-0.8); NRBC # 0.23 10*3/uL; Neutrophils % 83.3 % (38.7-73.9); Platelet Count 303 T/CUMM (130-400); Red Blood Count 2.68 MC/CUMM (3.8-5.5); Red Cell Distribution Width 15.9 % (9.3-17.3); White Blood Count 19.4 T/CUMM (4-12)
[2022-11-30 05:49] LABS: Band Neutrophils 1 % (0-10); Lymphocytes 6 % (20-55); Platelet Estimate Adequate; Total Cells Counted 100
[2022-11-30 05:50] LABS: Hypochromia 1+; Microcytosis 1+
[2022-11-30] MEDS: SODIUM CHLORIDE 0.45% 1,000 ML IV SCH (05:58)
[2022-11-30 06:05] LABS: Alanine Aminotransferase 12 U/L (13-56); Albumin 1.7 G/DL (3.4-5.0); Alkaline Phosphatase 102 U/L (45-117); Aspartate Amino Transferase 14 U/L (0-37); Bilirubin,Total < 0.39 MG/DL (0.20-1.00); Blood Urea Nitrogen 55 MG/DL (7-18); Calcium 8.5 MG/DL (8.5-10.1); Carbon Dioxide 23 MMOL/L (21-32); Chloride 109 MMOL/L (98-107); Glucose 212 MG/DL (74-106); Osmolality,Calculated 306.8 MOS/KG (273-304); Potassium 4.7 MMOL/L (3.5-5.1); Sodium 144 MMOL/L (136-145); Total Protein 5.8 G/DL (6.4-8.2)
[2022-11-30] MEDS: MIDAZOLAM DRIP 100 MG/100 ML PREMIX IV PRN ×2 (06:06→18:59)
[2022-11-30] MEDS: METOCLOPRAMIDE 10 MG/2 ML VIAL IV SCH ×3 (06:13→22:16)
[2022-11-30] MEDS: LEVOTHYROXINE 125 MCG TABLET PO SCH (06:13)
[2022-11-30] MEDS: LIOTHYRONINE 25 MCG TABLET PER TUBE SCH (06:13)
[2022-11-30] MEDS: INSULIN GLARGINE 100 UNIT/ML SUBCUT SCH (08:22)
[2022-11-30] MEDS: FERRIC GLUCONATE COMPLEX 125 MG in SODIUM CHLORIDE 0.9% 100 ML IV SCH (08:22)
[2022-11-30] MEDS: METOPROLOL TARTRATE 50 MG TABLET PO SCH ×2 (08:24→22:16)
[2022-11-30] MEDS ORDERED: SODIUM CHLORIDE 0.9% 1,000 ML IV PRN (08:53)
[2022-11-30] MEDS: FAMOTIDINE 20 MG/2 ML VIAL IV SCH (11:12)
[2022-11-30 12:55] LABS: Total Protein 24 Hr Ur Result 1512 MG/24HR (0-149.1); Total Volume,Urine 800 ML (400-2000)
[2022-11-30 13:12] LABS: Creatinine Clearance Urine 10.92 ML/MIN (70-115)
[2022-11-30] MEDS: QUEtiapine 25 MG TABLET PO SCH (22:16)
[2022-11-30] MEDS: ENOXAPARIN 30 MG/0.3 ML SYRINGE SUBCUT SCH (22:18)
[2022-12-01] MEDS: methylPREDNISolone SOD SUC 40 MG/1 ML VIAL IV SCH ×4 (00:22→23:47)
[2022-12-01] MEDS: ALBUTEROL 1.25 MG/3 ML NEB RESP TX SCH ×5 (00:37→23:57)
[2022-12-01] MEDS: SODIUM CHLORIDE 0.45% 1,000 ML IV SCH ×3 (01:07→22:30)
[2022-12-01] MEDS: INSULIN LISPRO 100 UNIT/ML SUBCUT SCH ×5 (02:45→23:50)
[2022-12-01 04:45] LABS: Arterial Base Excess iSTAT 0 MMOL/L (-2.5-2.5); Arterial Bicarbonate iSTAT 23.7 MMOL/L (20-26); Arterial O2 Saturation iSTAT 99 % (95-100); Arterial PCO2 iSTAT 34 MM HG (35-48); Arterial PO2 iSTAT 140 MM HG (80-95); Arterial Total CO2 iSTAT 25 MMO/L (23-27); Arterial pH iSTAT 7.459 (7.35-7.45)
[2022-12-01 06:08] LABS: Basophils % 0.1 % (0.0-0.8); Hematocrit 25.7 VOL% (35.7-47.0); Hemoglobin 8.1 GM/DL (12.0-16.0); Immature Granulocytes Absolute 0.61 #; Lymphocytes # 1.6 10*3/uL (1.4-4.0); Lymphocytes % 21.2 % (21.3-54.2); Mean Corpuscular HGB Conc 31.5 GM/DL (32-36); Mean Corpuscular Volume 80.6 FL (87-102); Mean Platelet Volume 8.8 FL (9.6-12.0); Monocytes # 0.7 10*3/uL (0.11-0.8); Monocytes % 8.8 % (1.7-12.7); NRBC # 0.16 10*3/uL; Neutrophils % 61.9 % (38.7-73.9); Platelet Count 279 T/CUMM (130-400); Red Blood Count 3.19 MC/CUMM (3.8-5.5); Red Cell Distribution Width 16.9 % (9.3-17.3); White Blood Count 7.6 T/CUMM (4-12)
[2022-12-01] MEDS: LEVOTHYROXINE 125 MCG TABLET PO SCH (06:08)
[2022-12-01] MEDS: MIDAZOLAM DRIP 100 MG/100 ML PREMIX IV PRN ×2 (06:17→20:47)
[2022-12-01] MEDS: METOCLOPRAMIDE 10 MG/2 ML VIAL IV SCH ×3 (06:23→21:09)
[2022-12-01] MEDS: LIOTHYRONINE 25 MCG TABLET PER TUBE SCH (06:24)
[2022-12-01 06:30] LABS: Osmolality,Calculated 308.3 MOS/KG (273-304); Phosphorous 5.6 MG/DL (2.5-4.9); Potassium 4.1 MMOL/L (3.5-5.1)
[2022-12-01 06:51] LABS: Band Neutrophils 1 % (0-10); Lymphocytes 14 % (20-55); Nucleated Red Blood Cells 1 /100 WBC (0-5); Total Cells Counted 100
[2022-12-01 06:52] LABS: Hypochromia Slight; Microcytosis Slight; Platelet Estimate Adequate
[2022-12-01] MEDS: INSULIN GLARGINE 100 UNIT/ML SUBCUT SCH (09:06)
[2022-12-01] MEDS: FERRIC GLUCONATE COMPLEX 125 MG in SODIUM CHLORIDE 0.9% 100 ML IV SCH (09:06)
[2022-12-01] MEDS: METOPROLOL TARTRATE 50 MG TABLET PO SCH ×2 (09:07→20:19)
[2022-12-01] MEDS: FAMOTIDINE 20 MG/2 ML VIAL IV SCH (09:07)
[2022-12-01] MEDS ORDERED: LACTULOSE 20 GM/30 ML UDCUP PO PRN (16:23)
[2022-12-01] MEDS: LEVOFLOXACIN 750 MG TABLET PO SCH (20:18)
[2022-12-01] MEDS: QUEtiapine 25 MG TABLET PO SCH (20:19)
[2022-12-01] MEDS ORDERED: LACTULOSE 20 GM/30 ML UDCUP PO SCH (21:00)
[2022-12-01] MEDS: ENOXAPARIN 30 MG/0.3 ML SYRINGE SUBCUT SCH (21:14)
[2022-12-02 03:43] LABS: Arterial Base Excess iSTAT -2 MMOL/L (-2.5-2.5); Arterial Bicarbonate iSTAT 22.3 MMOL/L (20-26); Arterial O2 Saturation iSTAT 99 % (95-100); Arterial PCO2 iSTAT 35 MM HG (35-48); Arterial PO2 iSTAT 119 MM HG (80-95); Arterial Total CO2 iSTAT 23 MMO/L (23-27); Arterial pH iSTAT 7.416 (7.35-7.45)
[2022-12-02] MEDS: METOCLOPRAMIDE 10 MG/2 ML VIAL IV SCH ×3 (05:27→21:51)
[2022-12-02] MEDS: INSULIN LISPRO 100 UNIT/ML SUBCUT SCH ×4 (05:29→23:33)
[2022-12-02] MEDS: LIOTHYRONINE 25 MCG TABLET PER TUBE SCH (06:05)
[2022-12-02] MEDS: LEVOTHYROXINE 100 MCG TABLET PO SCH (06:06)
[2022-12-02] MEDS: ALBUTEROL/IPRATROPIUM 3 ML NEB RESP TX PRN (07:26)
[2022-12-02] MEDS: ALBUTEROL 1.25 MG/3 ML NEB RESP TX SCH ×3 (07:46→19:11)
[2022-12-02] MEDS: methylPREDNISolone SOD SUC 40 MG/1 ML VIAL IV SCH ×3 (08:21→23:30)
[2022-12-02] MEDS: METOPROLOL TARTRATE 50 MG TABLET PO SCH ×2 (08:23→20:44)
[2022-12-02] MEDS: FERRIC GLUCONATE COMPLEX 125 MG in SODIUM CHLORIDE 0.9% 100 ML IV SCH (08:32)
[2022-12-02] MEDS: FAMOTIDINE 20 MG/2 ML VIAL IV SCH (09:14)
[2022-12-02] MEDS: INSULIN GLARGINE 100 UNIT/ML SUBCUT SCH (09:14)
[2022-12-02] MEDS: hydrALAZINE 20 MG/1 ML VIAL IV PRN (09:25)
[2022-12-02 09:39] LABS: Basophils % 0.3 % (0.0-0.8); Eosinophils % 0.1 % (0.00-10.9); Hematocrit 29.4 VOL% (35.7-47.0); Hemoglobin 9.3 GM/DL (12.0-16.0); Immature Granulocytes % 9.8 %; Immature Granulocytes Absolute 1.09 #; Lymphocytes # 1.8 10*3/uL (1.4-4.0); Lymphocytes % 16.2 % (21.3-54.2); Mean Corpuscular HGB Conc 31.6 GM/DL (32-36); Mean Corpuscular Volume 79.5 FL (87-102); Mean Platelet Volume 9.6 FL (9.6-12.0); Monocytes # 0.5 10*3/uL (0.11-0.8); Monocytes % 4.5 % (1.7-12.7); NRBC # 0.07 10*3/uL; Neutrophils % 69.1 % (38.7-73.9); Platelet Count 266 T/CUMM (130-400); Red Cell Distribution Width 17.1 % (9.3-17.3); White Blood Count 11.1 T/CUMM (4-12)
[2022-12-02 09:46] LABS: Calcium 8.1 MG/DL (8.5-10.1); Osmolality,Calculated 300.5 MOS/KG (273-304); Potassium 4.9 MMOL/L (3.5-5.1)
[2022-12-02 10:02] LABS: Band Neutrophils 1 % (0-10); Lymphocytes 8 % (20-55); Total Cells Counted 100
[2022-12-02 10:03] LABS: Platelet Estimate Adequate
[2022-12-02 10:05] LABS: Hypochromia Slight
[2022-12-02 10:07] LABS: Anisocytosis Slight
[2022-12-02] MEDS: amLODIPine 5 MG TABLET PER TUBE SCH (11:07)
[2022-12-02] MEDS: MIDAZOLAM DRIP 100 MG/100 ML PREMIX IV PRN (11:52)
[2022-12-02] MEDS: QUEtiapine 25 MG TABLET PO SCH (20:44)
[2022-12-03] MEDS: ALBUTEROL 1.25 MG/3 ML NEB RESP TX SCH ×4 (00:38→19:40)
[2022-12-03 04:29] LABS: Basophils # 0.1 10*3/uL (0.0-0.2); Basophils % 0.4 % (0.0-0.8); Eosinophils # 0.1 10*3/uL (0.0-0.87); Eosinophils % 0.3 % (0.00-10.9); Hematocrit 31.3 VOL% (35.7-47.0); Hemoglobin 9.5 GM/DL (12.0-16.0); Immature Granulocytes % 7.8 %; Immature Granulocytes Absolute 1.33 #; Lymphocytes # 2.3 10*3/uL (1.4-4.0); Lymphocytes % 13.4 % (21.3-54.2); Mean Corpuscular HGB Conc 30.4 GM/DL (32-36); Mean Corpuscular Volume 82.2 FL (87-102); Mean Platelet Volume 9.8 FL (9.6-12.0); Monocytes # 1.1 10*3/uL (0.11-0.8); Monocytes % 6.6 % (1.7-12.7); NRBC # 0.14 10*3/uL; Neutrophils % 71.5 % (38.7-73.9); Platelet Count 197 T/CUMM (130-400); Red Blood Count 3.81 MC/CUMM (3.8-5.5); Red Cell Distribution Width 17.5 % (9.3-17.3); White Blood Count 17.1 T/CUMM (4-12)
[2022-12-03 04:38] LABS: Arterial Base Excess iSTAT -2 MMOL/L (-2.5-2.5); Arterial Bicarbonate iSTAT 22.1 MMOL/L (20-26); Arterial O2 Saturation iSTAT 98 % (95-100); Arterial PCO2 iSTAT 35 MM HG (35-48); Arterial PO2 iSTAT 98 MM HG (80-95); Arterial Total CO2 iSTAT 23 MMO/L (23-27); Arterial pH iSTAT 7.415 (7.35-7.45)
[2022-12-03 04:45] LABS: Osmolality,Calculated 298.7 MOS/KG (273-304); Potassium 5.3 MMOL/L (3.5-5.1)
[2022-12-03 04:56] LABS: Band Neutrophils 2 % (0-10); Lymphocytes 16 % (20-55); Nucleated Red Blood Cells 2 /100 WBC (0-5); Platelet Estimate Adequate; Total Cells Counted 100
[2022-12-03 04:57] LABS: Hypochromia Slight; Microcytosis Slight
[2022-12-03] MEDS: METOCLOPRAMIDE 10 MG/2 ML VIAL IV SCH ×3 (05:37→21:53)
[2022-12-03] MEDS: INSULIN LISPRO 100 UNIT/ML SUBCUT SCH ×3 (05:39→18:17)
[2022-12-03] MEDS: LIOTHYRONINE 25 MCG TABLET PER TUBE SCH ×2 (07:02→09:51)
[2022-12-03] MEDS: LEVOTHYROXINE 100 MCG TABLET PO SCH ×2 (07:02→09:50)
[2022-12-03] MEDS: methylPREDNISolone SOD SUC 40 MG/1 ML VIAL IV SCH ×2 (08:32→15:56)
[2022-12-03] MEDS: FERRIC GLUCONATE COMPLEX 125 MG in SODIUM CHLORIDE 0.9% 100 ML IV SCH (08:35)
[2022-12-03] MEDS: FAMOTIDINE 20 MG/2 ML VIAL IV SCH (08:44)
[2022-12-03] MEDS: METOPROLOL TARTRATE 50 MG TABLET PO SCH ×2 (09:50→21:53)
[2022-12-03] MEDS: INSULIN GLARGINE 100 UNIT/ML SUBCUT SCH (09:51)
[2022-12-03] MEDS: amLODIPine 5 MG TABLET PER TUBE SCH (09:51)
[2022-12-03] MEDS: ENOXAPARIN 30 MG/0.3 ML SYRINGE SUBCUT SCH ×2 (10:08→21:52)
[2022-12-03] MEDS: hydrALAZINE 20 MG/1 ML VIAL IV PRN (12:33)
[2022-12-03] MEDS: MIDAZOLAM DRIP 100 MG/100 ML PREMIX IV PRN (12:37)
[2022-12-03] MEDS: QUEtiapine 25 MG TABLET PO SCH (21:52)
[2022-12-03] MEDS: LEVOFLOXACIN 750 MG TABLET PO SCH (21:52)
[2022-12-04] MEDS: ALBUTEROL 1.25 MG/3 ML NEB RESP TX SCH ×4 (00:04→19:04)
[2022-12-04] MEDS: INSULIN LISPRO 100 UNIT/ML SUBCUT SCH ×5 (00:07→23:38)
[2022-12-04] MEDS: methylPREDNISolone SOD SUC 40 MG/1 ML VIAL IV SCH ×3 (00:19→21:02)
[2022-12-04 04:38] LABS: Arterial Base Excess iSTAT 0 MMOL/L (-2.5-2.5); Arterial Bicarbonate iSTAT 23.3 MMOL/L (20-26); Arterial O2 Saturation iSTAT 99 % (95-100); Arterial PCO2 iSTAT 32 MM HG (35-48); Arterial PO2 iSTAT 122 MM HG (80-95); Arterial Total CO2 iSTAT 24 MMO/L (23-27); Arterial pH iSTAT 7.466 (7.35-7.45)
[2022-12-04 06:24] LABS: Basophils # 0.1 10*3/uL (0.0-0.2); Basophils % 0.3 % (0.0-0.8); Hematocrit 28.6 VOL% (35.7-47.0); Hemoglobin 8.8 GM/DL (12.0-16.0); Immature Granulocytes % 6.8 %; Immature Granulocytes Absolute 1.46 #; Lymphocytes # 2.1 10*3/uL (1.4-4.0); Lymphocytes % 9.9 % (21.3-54.2); Mean Corpuscular HGB Conc 30.8 GM/DL (32-36); Mean Platelet Volume 8.8 FL (9.6-12.0); Monocytes # 0.9 10*3/uL (0.11-0.8); Monocytes % 4.1 % (1.7-12.7); NRBC # 0.21 10*3/uL; Neutrophils % 78.9 % (38.7-73.9); Platelet Count 280 T/CUMM (130-400); Red Blood Count 3.53 MC/CUMM (3.8-5.5); Red Cell Distribution Width 17.3 % (9.3-17.3); White Blood Count 21.4 T/CUMM (4-12)
[2022-12-04 06:37] LABS: Calcium 8.1 MG/DL (8.5-10.1); Osmolality,Calculated 307.1 MOS/KG (273-304); Potassium 4.8 MMOL/L (3.5-5.1)
[2022-12-04] MEDS: METOCLOPRAMIDE 10 MG/2 ML VIAL IV SCH ×3 (06:44→21:01)
[2022-12-04] MEDS: LEVOTHYROXINE 100 MCG TABLET PO SCH (06:47)
[2022-12-04] MEDS: LIOTHYRONINE 25 MCG TABLET PER TUBE SCH (06:47)
[2022-12-04 07:05] LABS: Eosinophils 1 % (0-10); Hypochromia Slight; Lymphocytes 12 % (20-55); Microcytosis Slight; Nucleated Red Blood Cells 1 /100 WBC (0-5); Platelet Estimate Normal; Total Cells Counted 100
[2022-12-04] MEDS: METOPROLOL TARTRATE 50 MG TABLET PO SCH ×2 (09:08→21:01)
[2022-12-04] MEDS: amLODIPine 5 MG TABLET PER TUBE SCH (09:08)
[2022-12-04] MEDS: FAMOTIDINE 20 MG/2 ML VIAL IV SCH (09:09)
[2022-12-04] MEDS: FERRIC GLUCONATE COMPLEX 125 MG in SODIUM CHLORIDE 0.9% 100 ML IV SCH (09:09)
[2022-12-04] MEDS: INSULIN GLARGINE 100 UNIT/ML SUBCUT SCH (09:10)
[2022-12-04] MEDS: QUEtiapine 25 MG TABLET PO SCH (21:01)
[2022-12-04] MEDS: ENOXAPARIN 30 MG/0.3 ML SYRINGE SUBCUT SCH (21:02)
[2022-12-05] MEDS: ALBUTEROL 1.25 MG/3 ML NEB RESP TX SCH ×5 (00:03→23:22)
[2022-12-05] MEDS: MIDAZOLAM DRIP 100 MG/100 ML PREMIX IV PRN (02:20)
[2022-12-05 03:43] LABS: Arterial Base Excess iSTAT 0 MMOL/L (-2.5-2.5); Arterial Bicarbonate iSTAT 24.2 MMOL/L (20-26); Arterial O2 Saturation iSTAT 99 % (95-100); Arterial PCO2 iSTAT 38 MM HG (35-48); Arterial PO2 iSTAT 130 MM HG (80-95); Arterial Total CO2 iSTAT 25 MMO/L (23-27); Arterial pH iSTAT 7.419 (7.35-7.45)
[2022-12-05 04:08] LABS: Basophils # 0.1 10*3/uL (0.0-0.2); Basophils % 0.4 % (0.0-0.8); Eosinophils % 0.1 % (0.00-10.9); Hematocrit 30.6 VOL% (35.7-47.0); Hemoglobin 9.7 GM/DL (12.0-16.0); Immature Granulocytes % 8.6 %; Immature Granulocytes Absolute 1.92 #; Lymphocytes # 2.3 10*3/uL (1.4-4.0); Lymphocytes % 10.4 % (21.3-54.2); Mean Corpuscular HGB Conc 31.7 GM/DL (32-36); Mean Platelet Volume 9.2 FL (9.6-12.0); Monocytes # 1.2 10*3/uL (0.11-0.8); Monocytes % 5.3 % (1.7-12.7); NRBC # 0.11 10*3/uL; Neutrophils % 75.2 % (38.7-73.9); Platelet Count 302 T/CUMM (130-400); Red Blood Count 3.78 MC/CUMM (3.8-5.5); Red Cell Distribution Width 18.2 % (9.3-17.3); White Blood Count 22.5 T/CUMM (4-12)
[2022-12-05 04:28] LABS: Calcium 8.2 MG/DL (8.5-10.1); Osmolality,Calculated 310.7 MOS/KG (273-304); Potassium 4.7 MMOL/L (3.5-5.1)
[2022-12-05 04:53] LABS: Lymphocytes 14 % (20-55); Metamyelocytes 2 %; Myelocytes 1 %; Total Cells Counted 100
[2022-12-05 04:56] LABS: Hypochromia Slight; Microcytosis Slight; Polychromasia Slight; Target Cells Slight
[2022-12-05] MEDS: INSULIN LISPRO 100 UNIT/ML SUBCUT SCH ×4 (06:00→23:36)
[2022-12-05] MEDS: METOCLOPRAMIDE 10 MG/2 ML VIAL IV SCH ×3 (06:13→21:08)
[2022-12-05] MEDS: LIOTHYRONINE 25 MCG TABLET PER TUBE SCH (06:15)
[2022-12-05] MEDS: LEVOTHYROXINE 100 MCG TABLET PO SCH (06:15)
[2022-12-05] MEDS: methylPREDNISolone SOD SUC 40 MG/1 ML VIAL IV SCH ×2 (08:24→21:08)
[2022-12-05] MEDS: METOPROLOL TARTRATE 50 MG TABLET PO SCH ×2 (08:24→21:07)
[2022-12-05] MEDS: amLODIPine 5 MG TABLET PER TUBE SCH (08:24)
[2022-12-05] MEDS: INSULIN GLARGINE 100 UNIT/ML SUBCUT SCH (08:38)
[2022-12-05] MEDS: FAMOTIDINE 20 MG/2 ML VIAL IV SCH (08:38)
[2022-12-05] MEDS: hydrALAZINE 20 MG/1 ML VIAL IV PRN (12:53)
[2022-12-05] MEDS: LEVOFLOXACIN 750 MG TABLET PO SCH (21:07)
[2022-12-05] MEDS: QUEtiapine 25 MG TABLET PO SCH (21:07)
[2022-12-06 04:09] LABS: ABG Base Excess 1.2 MMOL/L (-2.5-2.5); ABG HCO3 25.5 MMOL/L (20-26); ABG Oxygen Saturation 97.9 % (95-100); ABG PCO2 38.5 MM HG (35-48); ABG PH 7.428 (7.35-7.45); ABG TCO2 22.7 MMOL/L (23-27)
[2022-12-06 05:06] LABS: Basophils # 0.1 10*3/uL (0.0-0.2); Basophils % 0.3 % (0.0-0.8); Eosinophils # 0.1 10*3/uL (0.0-0.87); Eosinophils % 0.5 % (0.00-10.9); Hematocrit 28.2 VOL% (35.7-47.0); Hemoglobin 8.8 GM/DL (12.0-16.0); Immature Granulocytes % 5.8 %; Immature Granulocytes Absolute 1.11 #; Lymphocytes # 1.6 10*3/uL (1.4-4.0); Lymphocytes % 8.2 % (21.3-54.2); Mean Corpuscular HGB Conc 31.2 GM/DL (32-36); Mean Corpuscular Volume 82.2 FL (87-102); Mean Platelet Volume 9.4 FL (9.6-12.0); Monocytes # 0.8 10*3/uL (0.11-0.8); Monocytes % 4.2 % (1.7-12.7); NRBC # 0.07 10*3/uL; Platelet Count 262 T/CUMM (130-400); Red Blood Count 3.43 MC/CUMM (3.8-5.5); Red Cell Distribution Width 18.6 % (9.3-17.3); White Blood Count 19.2 T/CUMM (4-12)
[2022-12-06 05:15] LABS: Calcium 8.1 MG/DL (8.5-10.1); Osmolality,Calculated 312.6 MOS/KG (273-304); Potassium 4.7 MMOL/L (3.5-5.1)
[2022-12-06 05:32] LABS: Hypochromia 1+; Lymphocytes 14 % (20-55); Microcytosis 1+; Nucleated Red Blood Cells 2 /100 WBC (0-5); Platelet Estimate Adequate; Total Cells Counted 100
[2022-12-06] MEDS: INSULIN LISPRO 100 UNIT/ML SUBCUT SCH ×3 (05:41→20:14)
[2022-12-06] MEDS: METOCLOPRAMIDE 10 MG/2 ML VIAL IV SCH ×3 (06:15→21:04)
[2022-12-06] MEDS: LIOTHYRONINE 25 MCG TABLET PER TUBE SCH (06:18)
[2022-12-06] MEDS: LEVOTHYROXINE 100 MCG TABLET PO SCH (06:18)
[2022-12-06] MEDS: ALBUTEROL 1.25 MG/3 ML NEB RESP TX SCH ×3 (07:25→19:39)
[2022-12-06] MEDS ORDERED: MIDAZOLAM 2 MG/2 ML VIAL ONE (08:19)
[2022-12-06] MEDS ORDERED: ROCURONIUM 50 MG/5 ML VIAL IV ONE (08:24)
[2022-12-06] MEDS ORDERED: BUPIVACAINE MPF 0.25% 10 ML VIAL ONE (08:34)
[2022-12-06] MEDS ORDERED: fentaNYL 100 MCG/2 ML VIAL ONE (09:18)
[2022-12-06] MEDS ORDERED: ceFAZolin 1,000 MG VIAL ONE (09:20)
[2022-12-06] MEDS ORDERED: GLYCOPYRROLATE 0.4 MG/2 ML VIAL ONE (09:22)
[2022-12-06] MEDS ORDERED: SEVOFLURANE 1 UNIT/15 MINUTE INH ONE (09:41)
[2022-12-06] MEDS: METOPROLOL TARTRATE 50 MG TABLET PO SCH ×2 (10:35→20:34)
[2022-12-06] MEDS: amLODIPine 5 MG TABLET PER TUBE SCH (10:35)
[2022-12-06] MEDS: methylPREDNISolone SOD SUC 40 MG/1 ML VIAL IV SCH ×2 (10:36→20:33)
[2022-12-06] MEDS: FAMOTIDINE 20 MG/2 ML VIAL IV SCH (10:37)
[2022-12-06] MEDS: INSULIN GLARGINE 100 UNIT/ML SUBCUT SCH (10:38)
[2022-12-06] MEDS ORDERED: DEXTROSE 50% 25 GM/50 ML SYRINGE IV ONE (12:10)
[2022-12-06] MEDS: DEXTROSE 50% 25 GM/50 ML SYRINGE IV PRN (12:15)
[2022-12-06] MEDS: MIDAZOLAM DRIP 100 MG/100 ML PREMIX IV PRN (13:29)
[2022-12-06] MEDS: hydrALAZINE 20 MG/1 ML VIAL IV PRN ×2 (15:13→22:09)
[2022-12-06] MEDS: QUEtiapine 25 MG TABLET PO SCH (20:34)
[2022-12-07] MEDS: ALBUTEROL 1.25 MG/3 ML NEB RESP TX SCH ×4 (00:12→19:37)
[2022-12-07] MEDS: INSULIN LISPRO 100 UNIT/ML SUBCUT SCH ×5 (00:15→23:38)
[2022-12-07] MEDS ORDERED: METOPROLOL TARTRATE 5 MG/5 ML VIAL IV ONE (06:23)
[2022-12-07] MEDS: LEVOTHYROXINE 100 MCG TABLET PO SCH (06:40)
[2022-12-07] MEDS: LIOTHYRONINE 25 MCG TABLET PER TUBE SCH (06:40)
[2022-12-07] MEDS: METOCLOPRAMIDE 10 MG/2 ML VIAL IV SCH ×3 (06:40→22:17)
[2022-12-07] MEDS: MORPHINE 2 MG/1 ML SYRINGE IV PRN (07:04)
[2022-12-07] MEDS: METOPROLOL TARTRATE 50 MG TABLET PO SCH ×2 (08:55→20:23)
[2022-12-07] MEDS: FAMOTIDINE 20 MG/2 ML VIAL IV SCH (08:55)
[2022-12-07] MEDS: methylPREDNISolone SOD SUC 40 MG/1 ML VIAL IV SCH ×2 (08:56→20:23)
[2022-12-07] MEDS: amLODIPine 5 MG TABLET PER TUBE SCH (08:57)
[2022-12-07] MEDS: INSULIN GLARGINE 100 UNIT/ML SUBCUT SCH (08:58)
[2022-12-07] MEDS: hydrALAZINE 20 MG/1 ML VIAL IV PRN (10:09)
[2022-12-07] MEDS: QUEtiapine 25 MG TABLET PO SCH (20:23)
[2022-12-08] MEDS: ALBUTEROL 1.25 MG/3 ML NEB RESP TX SCH ×5 (00:07→23:34)
[2022-12-08 03:46] LABS: Arterial Base Excess iSTAT 0 MMOL/L (-2.5-2.5); Arterial Bicarbonate iSTAT 24.2 MMOL/L (20-26); Arterial O2 Saturation iSTAT 100 % (95-100); Arterial PCO2 iSTAT 35 MM HG (35-48); Arterial PO2 iSTAT 168 MM HG (80-95); Arterial Total CO2 iSTAT 25 MMO/L (23-27); Arterial pH iSTAT 7.445 (7.35-7.45)
[2022-12-08 04:51] LABS: Basophils % 0.1 % (0.0-0.8); Eosinophils # 0.1 10*3/uL (0.0-0.87); Hematocrit 27.1 VOL% (35.7-47.0); Hemoglobin 8.2 GM/DL (12.0-16.0); Immature Granulocytes % 3.3 %; Immature Granulocytes Absolute 0.33 #; Lymphocytes # 0.8 10*3/uL (1.4-4.0); Lymphocytes % 8.4 % (21.3-54.2); Mean Corpuscular HGB Conc 30.3 GM/DL (32-36); Mean Corpuscular Volume 83.1 FL (87-102); Mean Platelet Volume 9.5 FL (9.6-12.0); Monocytes # 0.6 10*3/uL (0.11-0.8); Monocytes % 6.4 % (1.7-12.7); NRBC # 0.04 10*3/uL; Neutrophils % 80.8 % (38.7-73.9); Platelet Count 241 T/CUMM (130-400); Red Blood Count 3.26 MC/CUMM (3.8-5.5); Red Cell Distribution Width 19.3 % (9.3-17.3)
[2022-12-08 05:12] LABS: Alanine Aminotransferase 11 U/L (13-56); Albumin 1.8 G/DL (3.4-5.0); Alkaline Phosphatase 87 U/L (45-117); Aspartate Amino Transferase 23 U/L (0-37); Bilirubin,Total < 0.39 MG/DL (0.20-1.00); Blood Urea Nitrogen 80 MG/DL (7-18); Calcium 7.9 MG/DL (8.5-10.1); Carbon Dioxide 22 MMOL/L (21-32); Chloride 116 MMOL/L (98-107); Glucose 106 MG/DL (74-106); Osmolality,Calculated 315.4 MOS/KG (273-304); Potassium 4.9 MMOL/L (3.5-5.1); Sodium 147 MMOL/L (136-145); Total Protein 4.6 G/DL (6.4-8.2)
[2022-12-08] MEDS: INSULIN LISPRO 100 UNIT/ML SUBCUT SCH ×3 (06:07→18:30)
[2022-12-08] MEDS: LEVOTHYROXINE 100 MCG TABLET PO SCH (06:11)
[2022-12-08] MEDS: METOCLOPRAMIDE 10 MG/2 ML VIAL IV SCH ×3 (06:11→21:10)
[2022-12-08] MEDS: LIOTHYRONINE 25 MCG TABLET PER TUBE SCH (06:11)
[2022-12-08] MEDS: amLODIPine 5 MG TABLET PER TUBE SCH (09:40)
[2022-12-08] MEDS: METOPROLOL TARTRATE 50 MG TABLET PO SCH ×2 (09:40→20:31)
[2022-12-08] MEDS: FAMOTIDINE 20 MG/2 ML VIAL IV SCH (09:42)
[2022-12-08] MEDS: methylPREDNISolone SOD SUC 40 MG/1 ML VIAL IV SCH ×2 (09:43→20:32)
[2022-12-08] MEDS: INSULIN GLARGINE 100 UNIT/ML SUBCUT SCH (09:43)
[2022-12-08] MEDS: MULTIVITAMIN LIQUID (CENTRUM) 60 ML BOTTLE PO SCH (09:44)
[2022-12-08] MEDS: QUEtiapine 25 MG TABLET PO SCH (20:31)
[2022-12-08] MEDS: MORPHINE 2 MG/1 ML SYRINGE IV PRN (20:32)
[2022-12-09] MEDS: INSULIN LISPRO 100 UNIT/ML SUBCUT SCH ×4 (00:13→18:39)
[2022-12-09] MEDS: MORPHINE 2 MG/1 ML SYRINGE IV PRN ×2 (03:21→13:22)
[2022-12-09] MEDS: BENZOCAINE 20% ORAL GEL 11.9 GM TUBE TOP PRN ×2 (03:35→16:56)
[2022-12-09 05:04] LABS: Calcium 8.4 MG/DL (8.5-10.1); Osmolality,Calculated 306.7 MOS/KG (273-304); Potassium 4.4 MMOL/L (3.5-5.1)
[2022-12-09] MEDS: DEXTROSE 50% 25 GM/50 ML SYRINGE IV PRN ×2 (05:18→11:38)
[2022-12-09 05:29] LABS: Basophils % 0.2 % (0.0-0.8); Eosinophils # 0.3 10*3/uL (0.0-0.87); Eosinophils % 2.5 % (0.00-10.9); Hemoglobin 8.7 GM/DL (12.0-16.0); Immature Granulocytes % 2.6 %; Immature Granulocytes Absolute 0.29 #; Mean Platelet Volume 10.1 FL (9.6-12.0); Monocytes # 0.9 10*3/uL (0.11-0.8); Monocytes % 7.9 % (1.7-12.7); NRBC # 0.03 10*3/uL; Neutrophils % 77.8 % (38.7-73.9); Platelet Count 259 T/CUMM (130-400); Red Blood Count 3.41 MC/CUMM (3.8-5.5); Red Cell Distribution Width 19.9 % (9.3-17.3); White Blood Count 11.3 T/CUMM (4-12)
[2022-12-09] MEDS: ALBUTEROL/IPRATROPIUM 3 ML NEB RESP TX PRN (05:50)
[2022-12-09] MEDS: METOCLOPRAMIDE 10 MG/2 ML VIAL IV SCH ×3 (06:55→21:15)
[2022-12-09] MEDS: LEVOTHYROXINE 100 MCG TABLET PO SCH (06:57)
[2022-12-09] MEDS: LIOTHYRONINE 25 MCG TABLET PER TUBE SCH (06:57)
[2022-12-09] MEDS: ALBUTEROL 1.25 MG/3 ML NEB RESP TX SCH ×3 (07:06→19:46)
[2022-12-09] MEDS: amLODIPine 5 MG TABLET PER TUBE SCH (08:14)
[2022-12-09] MEDS: METOPROLOL TARTRATE 50 MG TABLET PO SCH ×2 (08:14→20:27)
[2022-12-09] MEDS: methylPREDNISolone SOD SUC 40 MG/1 ML VIAL IV SCH ×2 (08:16→20:27)
[2022-12-09] MEDS: FAMOTIDINE 20 MG/2 ML VIAL IV SCH (08:32)
[2022-12-09] MEDS ORDERED: DEXTROSE 5% NACL 0.45% 1,000 ML IV SCH (13:30)
[2022-12-09] MEDS: MULTIVITAMIN LIQUID (CENTRUM) 60 ML BOTTLE PO SCH (13:33)
[2022-12-09] MEDS: INSULIN GLARGINE 100 UNIT/ML SUBCUT SCH (15:43)
[2022-12-09] MEDS: QUEtiapine 25 MG TABLET PO SCH (20:28)
[2022-12-10] MEDS: INSULIN LISPRO 100 UNIT/ML SUBCUT SCH ×4 (00:08→17:12)
[2022-12-10] MEDS: ALBUTEROL 1.25 MG/3 ML NEB RESP TX SCH ×4 (00:29→19:06)
[2022-12-10] MEDS: DEXTROSE 5% NACL 0.45% 1,000 ML IV SCH ×2 (00:37→14:00)
[2022-12-10 04:43] LABS: Basophils % 0.2 % (0.0-0.8); Eosinophils # 0.2 10*3/uL (0.0-0.87); Eosinophils % 1.7 % (0.00-10.9); Hematocrit 28.3 VOL% (35.7-47.0); Hemoglobin 8.4 GM/DL (12.0-16.0); Immature Granulocytes Absolute 0.19 #; Lymphocytes # 0.9 10*3/uL (1.4-4.0); Lymphocytes % 8.9 % (21.3-54.2); Mean Corpuscular HGB Conc 29.7 GM/DL (32-36); Mean Corpuscular Volume 84.2 FL (87-102); Mean Platelet Volume 9.7 FL (9.6-12.0); Monocytes # 0.7 10*3/uL (0.11-0.8); Monocytes % 7.2 % (1.7-12.7); NRBC # 0.02 10*3/uL; Platelet Count 270 T/CUMM (130-400); Red Blood Count 3.36 MC/CUMM (3.8-5.5); Red Cell Distribution Width 19.6 % (9.3-17.3); White Blood Count 9.7 T/CUMM (4-12)
[2022-12-10 05:02] LABS: Calcium 8.7 MG/DL (8.5-10.1); Osmolality,Calculated 308.7 MOS/KG (273-304); Potassium 4.6 MMOL/L (3.5-5.1)
[2022-12-10] MEDS: METOCLOPRAMIDE 10 MG/2 ML VIAL IV SCH ×3 (06:05→21:07)
[2022-12-10] MEDS: LIOTHYRONINE 25 MCG TABLET PER TUBE SCH (08:05)
[2022-12-10] MEDS: amLODIPine 5 MG TABLET PER TUBE SCH (08:05)
[2022-12-10] MEDS: methylPREDNISolone SOD SUC 40 MG/1 ML VIAL IV SCH ×2 (08:05→21:07)
[2022-12-10] MEDS: LEVOTHYROXINE 100 MCG TABLET PO SCH (08:05)
[2022-12-10] MEDS: METOPROLOL TARTRATE 50 MG TABLET PO SCH ×2 (08:05→21:08)
[2022-12-10] MEDS: MULTIVITAMIN LIQUID (CENTRUM) 60 ML BOTTLE PO SCH (08:13)
[2022-12-10] MEDS: INSULIN GLARGINE 100 UNIT/ML SUBCUT SCH (08:13)
[2022-12-10] MEDS: FAMOTIDINE 20 MG/2 ML VIAL IV SCH (08:30)
[2022-12-10] MEDS: DEXTROSE 50% 25 GM/50 ML SYRINGE IV PRN (09:05)
[2022-12-10] MEDS ORDERED: MIDAZOLAM 2 MG/2 ML VIAL ONE (12:11)
[2022-12-10] MEDS ORDERED: propofoL 200 MG/20 ML VIAL IV ONE ×2 (12:11→12:12)
[2022-12-10] MEDS ORDERED: LIDOCAINE 1% 5 ML VIAL ONE (12:12)
[2022-12-10] MEDS ORDERED: PHENYLEPHRINE 1 MG/10 ML SYRINGE IV ONE (12:14)
[2022-12-10] MEDS: MORPHINE 2 MG/1 ML SYRINGE IV PRN (12:20)
[2022-12-10] MEDS: hydrALAZINE 20 MG/1 ML VIAL IV PRN (14:57)
[2022-12-10] MEDS: QUEtiapine 25 MG TABLET PO SCH (21:08)
[2022-12-11] MEDS: INSULIN LISPRO 100 UNIT/ML SUBCUT SCH ×4 (00:35→17:24)
[2022-12-11] MEDS: ALBUTEROL 1.25 MG/3 ML NEB RESP TX SCH ×4 (01:04→18:46)
[2022-12-11] MEDS: DEXTROSE 5% NACL 0.45% 1,000 ML IV SCH ×2 (03:24→13:58)
[2022-12-11] MEDS: hydrALAZINE 20 MG/1 ML VIAL IV PRN (04:05)
[2022-12-11 05:29] LABS: Basophils % 0.3 % (0.0-0.8); Eosinophils # 0.1 10*3/uL (0.0-0.87); Eosinophils % 0.7 % (0.00-10.9); Hematocrit 32.2 VOL% (35.7-47.0); Hemoglobin 9.5 GM/DL (12.0-16.0); Immature Granulocytes % 1.3 %; Immature Granulocytes Absolute 0.13 #; Lymphocytes # 1.4 10*3/uL (1.4-4.0); Lymphocytes % 13.9 % (21.3-54.2); Mean Corpuscular HGB Conc 29.5 GM/DL (32-36); Mean Corpuscular Volume 86.1 FL (87-102); Mean Platelet Volume 9.2 FL (9.6-12.0); Monocytes # 0.8 10*3/uL (0.11-0.8); Monocytes % 8.1 % (1.7-12.7); Neutrophils % 75.7 % (38.7-73.9); Platelet Count 294 T/CUMM (130-400); Red Blood Count 3.74 MC/CUMM (3.8-5.5); Red Cell Distribution Width 19.9 % (9.3-17.3); White Blood Count 10.2 T/CUMM (4-12)
[2022-12-11 05:52] LABS: Calcium 8.5 MG/DL (8.5-10.1); Osmolality,Calculated 315.7 MOS/KG (273-304); Potassium 4.6 MMOL/L (3.5-5.1)
[2022-12-11] MEDS: LIOTHYRONINE 25 MCG TABLET PER TUBE SCH (06:07)
[2022-12-11] MEDS: LEVOTHYROXINE 100 MCG TABLET PO SCH (06:07)
[2022-12-11] MEDS: METOCLOPRAMIDE 10 MG/2 ML VIAL IV SCH ×3 (06:08→21:08)
[2022-12-11] MEDS: MULTIVITAMIN LIQUID (CENTRUM) 60 ML BOTTLE PO SCH (08:31)
[2022-12-11] MEDS: METOPROLOL TARTRATE 50 MG TABLET PO SCH ×2 (08:31→20:34)
[2022-12-11] MEDS: FAMOTIDINE 20 MG/2 ML VIAL IV SCH (08:33)
[2022-12-11] MEDS: amLODIPine 5 MG TABLET PER TUBE SCH (08:33)
[2022-12-11] MEDS: methylPREDNISolone SOD SUC 40 MG/1 ML VIAL IV SCH ×2 (08:33→20:35)
[2022-12-11] MEDS: INSULIN GLARGINE 100 UNIT/ML SUBCUT SCH (09:27)
[2022-12-11] MEDS: MORPHINE 2 MG/1 ML SYRINGE IV PRN (10:28)
[2022-12-11] MEDS ORDERED: LACTATED RINGERS 1,000 ML IV SCH ×2 (15:30)
[2022-12-11] MEDS: QUEtiapine 25 MG TABLET PO SCH (20:34)
[2022-12-12] MEDS: INSULIN LISPRO 100 UNIT/ML SUBCUT SCH ×5 (00:01→23:43)
[2022-12-12] MEDS: ALBUTEROL 1.25 MG/3 ML NEB RESP TX SCH ×4 (00:03→18:27)
[2022-12-12] MEDS: MORPHINE 2 MG/1 ML SYRINGE IV PRN (04:32)
[2022-12-12] MEDS: LIOTHYRONINE 25 MCG TABLET PER TUBE SCH (06:02)
[2022-12-12] MEDS: LEVOTHYROXINE 100 MCG TABLET PO SCH (06:03)
[2022-12-12] MEDS: METOCLOPRAMIDE 10 MG/2 ML VIAL IV SCH ×3 (06:03→21:05)
[2022-12-12 06:05] LABS: Basophils % 0.3 % (0.0-0.8); Eosinophils # 0.1 10*3/uL (0.0-0.87); Eosinophils % 0.7 % (0.00-10.9); Hematocrit 30.5 VOL% (35.7-47.0); Hemoglobin 8.9 GM/DL (12.0-16.0); Immature Granulocytes % 1.3 %; Immature Granulocytes Absolute 0.12 #; Lymphocytes # 1.2 10*3/uL (1.4-4.0); Lymphocytes % 12.4 % (21.3-54.2); Mean Corpuscular HGB Conc 29.2 GM/DL (32-36); Mean Corpuscular Volume 87.6 FL (87-102); Mean Platelet Volume 9.4 FL (9.6-12.0); Monocytes # 0.6 10*3/uL (0.11-0.8); Monocytes % 6.6 % (1.7-12.7); Neutrophils % 78.7 % (38.7-73.9); Platelet Count 272 T/CUMM (130-400); Red Blood Count 3.48 MC/CUMM (3.8-5.5); Red Cell Distribution Width 19.8 % (9.3-17.3); White Blood Count 9.4 T/CUMM (4-12)
[2022-12-12 06:26] LABS: Calcium 8.2 MG/DL (8.5-10.1); Osmolality,Calculated 305.3 MOS/KG (273-304); Potassium 4.4 MMOL/L (3.5-5.1)
[2022-12-12] MEDS: methylPREDNISolone SOD SUC 40 MG/1 ML VIAL IV SCH ×2 (09:12→20:24)
[2022-12-12] MEDS: FAMOTIDINE 20 MG/2 ML VIAL IV SCH (09:14)
[2022-12-12] MEDS: INSULIN GLARGINE 100 UNIT/ML SUBCUT SCH (09:15)
[2022-12-12] MEDS: MULTIVITAMIN LIQUID (CENTRUM) 60 ML BOTTLE PO SCH (09:15)
[2022-12-12] MEDS: amLODIPine 5 MG TABLET PER TUBE SCH (09:15)
[2022-12-12] MEDS: METOPROLOL TARTRATE 50 MG TABLET PO SCH ×2 (09:15→20:23)
[2022-12-12] MEDS: QUEtiapine 25 MG TABLET PO SCH (20:23)
[2022-12-13] MEDS: ALBUTEROL 1.25 MG/3 ML NEB RESP TX SCH ×4 (00:14→19:19)
[2022-12-13] MEDS: LEVOTHYROXINE 100 MCG TABLET PO SCH (06:15)
[2022-12-13] MEDS: METOCLOPRAMIDE 10 MG/2 ML VIAL IV SCH ×3 (06:15→21:23)
[2022-12-13] MEDS: INSULIN LISPRO 100 UNIT/ML SUBCUT SCH ×4 (06:15→23:55)
[2022-12-13] MEDS: LIOTHYRONINE 25 MCG TABLET PER TUBE SCH (06:15)
[2022-12-13] MEDS: METOPROLOL TARTRATE 50 MG TABLET PO SCH ×2 (09:51→21:23)
[2022-12-13] MEDS: MULTIVITAMIN LIQUID (CENTRUM) 60 ML BOTTLE PO SCH (09:51)
[2022-12-13] MEDS: amLODIPine 5 MG TABLET PER TUBE SCH (09:51)
[2022-12-13] MEDS: FAMOTIDINE 20 MG/2 ML VIAL IV SCH (09:52)
[2022-12-13] MEDS: INSULIN GLARGINE 100 UNIT/ML SUBCUT SCH (09:52)
[2022-12-13] MEDS: methylPREDNISolone SOD SUC 40 MG/1 ML VIAL IV SCH (09:52)
[2022-12-13] MEDS: predniSONE 20 MG TABLET PEG SCH (21:23)
[2022-12-13] MEDS: QUEtiapine 25 MG TABLET PO SCH (21:23)
[2022-12-14] MEDS: ALBUTEROL 1.25 MG/3 ML NEB RESP TX SCH ×4 (00:12→18:55)
[2022-12-14 04:56] LABS: Basophils % 0.1 % (0.0-0.8); Eosinophils % 0.2 % (0.00-10.9); Hematocrit 28.4 VOL% (35.7-47.0); Hemoglobin 8.7 GM/DL (12.0-16.0); Immature Granulocytes % 1.6 %; Immature Granulocytes Absolute 0.17 #; Lymphocytes # 1.1 10*3/uL (1.4-4.0); Lymphocytes % 10.3 % (21.3-54.2); Mean Corpuscular HGB Conc 30.6 GM/DL (32-36); Mean Corpuscular Volume 84.5 FL (87-102); Mean Platelet Volume 9.2 FL (9.6-12.0); Monocytes # 0.3 10*3/uL (0.11-0.8); Monocytes % 3.1 % (1.7-12.7); NRBC # 0.02 10*3/uL; Neutrophils % 84.7 % (38.7-73.9); Platelet Count 322 T/CUMM (130-400); Red Blood Count 3.36 MC/CUMM (3.8-5.5); Red Cell Distribution Width 19.2 % (9.3-17.3); White Blood Count 10.6 T/CUMM (4-12)
[2022-12-14 05:28] LABS: Calcium 8.5 MG/DL (8.5-10.1); Osmolality,Calculated 295.3 MOS/KG (273-304); Potassium 4.3 MMOL/L (3.5-5.1)
[2022-12-14] MEDS: INSULIN LISPRO 100 UNIT/ML SUBCUT SCH ×3 (05:59→17:51)
[2022-12-14] MEDS: METOCLOPRAMIDE 10 MG/2 ML VIAL IV SCH ×3 (06:00→21:25)
[2022-12-14] MEDS: METOPROLOL TARTRATE 50 MG TABLET PO SCH ×2 (08:00→21:25)
[2022-12-14] MEDS: LEVOTHYROXINE 100 MCG TABLET PO SCH (08:00)
[2022-12-14] MEDS: LIOTHYRONINE 25 MCG TABLET PER TUBE SCH (08:00)
[2022-12-14] MEDS: amLODIPine 5 MG TABLET PER TUBE SCH (08:00)
[2022-12-14] MEDS: predniSONE 20 MG TABLET PEG SCH (08:00)
[2022-12-14] MEDS: INSULIN GLARGINE 100 UNIT/ML SUBCUT SCH (09:09)
[2022-12-14] MEDS: FAMOTIDINE 20 MG/2 ML VIAL IV SCH (09:09)
[2022-12-14] MEDS: MULTIVITAMIN LIQUID (CENTRUM) 60 ML BOTTLE PO SCH (09:09)
[2022-12-14] MEDS: ENOXAPARIN 30 MG/0.3 ML SYRINGE SUBCUT SCH (21:25)
[2022-12-14] MEDS: QUEtiapine 25 MG TABLET PO SCH (21:25)
[2022-12-15] MEDS: ALBUTEROL 1.25 MG/3 ML NEB RESP TX SCH ×4 (00:40→19:01)
[2022-12-15] MEDS: INSULIN LISPRO 100 UNIT/ML SUBCUT SCH ×4 (00:41→18:00)
[2022-12-15 06:00] LABS: Basophils % 0.3 % (0.0-0.8); Eosinophils # 0.3 10*3/uL (0.0-0.87); Eosinophils % 2.3 % (0.00-10.9); Hematocrit 28.9 VOL% (35.7-47.0); Hemoglobin 8.7 GM/DL (12.0-16.0); Immature Granulocytes % 1.9 %; Immature Granulocytes Absolute 0.23 #; Lymphocytes # 2.4 10*3/uL (1.4-4.0); Lymphocytes % 19.6 % (21.3-54.2); Mean Corpuscular HGB Conc 30.1 GM/DL (32-36); Mean Platelet Volume 10.1 FL (9.6-12.0); Monocytes # 0.9 10*3/uL (0.11-0.8); Monocytes % 7.2 % (1.7-12.7); NRBC # 0.04 10*3/uL; Neutrophils % 68.7 % (38.7-73.9); Platelet Count 327 T/CUMM (130-400); Red Blood Count 3.36 MC/CUMM (3.8-5.5); Red Cell Distribution Width 19.3 % (9.3-17.3); White Blood Count 12.4 T/CUMM (4-12)
[2022-12-15 06:27] LABS: Calcium 8.7 MG/DL (8.5-10.1); Osmolality,Calculated 295.1 MOS/KG (273-304); Potassium 3.7 MMOL/L (3.5-5.1)
[2022-12-15] MEDS: METOCLOPRAMIDE 10 MG/2 ML VIAL IV SCH ×3 (06:37→22:30)
[2022-12-15] MEDS: predniSONE 20 MG TABLET PEG SCH (08:21)
[2022-12-15] MEDS: amLODIPine 5 MG TABLET PER TUBE SCH (08:22)
[2022-12-15] MEDS: LIOTHYRONINE 25 MCG TABLET PER TUBE SCH (08:22)
[2022-12-15] MEDS: LEVOTHYROXINE 100 MCG TABLET PO SCH (08:22)
[2022-12-15] MEDS: METOPROLOL TARTRATE 50 MG TABLET PO SCH ×2 (08:22→22:31)
[2022-12-15] MEDS: MULTIVITAMIN LIQUID (CENTRUM) 60 ML BOTTLE PO SCH (08:24)
[2022-12-15] MEDS: FAMOTIDINE 20 MG/2 ML VIAL IV SCH (09:08)
[2022-12-15] MEDS: INSULIN GLARGINE 100 UNIT/ML SUBCUT SCH (17:54)
[2022-12-15] MEDS: ENOXAPARIN 30 MG/0.3 ML SYRINGE SUBCUT SCH (22:30)
[2022-12-15] MEDS: QUEtiapine 25 MG TABLET PO SCH (22:31)
[2022-12-16] MEDS: ALBUTEROL 1.25 MG/3 ML NEB RESP TX SCH ×4 (00:36→18:54)
[2022-12-16] MEDS: INSULIN LISPRO 100 UNIT/ML SUBCUT SCH ×4 (00:52→18:47)
[2022-12-16] MEDS: METOCLOPRAMIDE 10 MG/2 ML VIAL IV SCH ×3 (05:41→21:15)
[2022-12-16 05:50] LABS: Basophils % 0.3 % (0.0-0.8); Eosinophils # 0.3 10*3/uL (0.0-0.87); Hematocrit 33.9 VOL% (35.7-47.0); Hemoglobin 10.2 GM/DL (12.0-16.0); Immature Granulocytes % 1.8 %; Immature Granulocytes Absolute 0.22 #; Lymphocytes # 2.7 10*3/uL (1.4-4.0); Lymphocytes % 21.7 % (21.3-54.2); Mean Corpuscular HGB Conc 30.1 GM/DL (32-36); Mean Corpuscular Volume 85.8 FL (87-102); Mean Platelet Volume 9.3 FL (9.6-12.0); Monocytes # 0.9 10*3/uL (0.11-0.8); Monocytes % 7.3 % (1.7-12.7); NRBC # 0.03 10*3/uL; Neutrophils % 66.9 % (38.7-73.9); Platelet Count 381 T/CUMM (130-400); Red Blood Count 3.95 MC/CUMM (3.8-5.5); Red Cell Distribution Width 19.4 % (9.3-17.3); White Blood Count 12.2 T/CUMM (4-12)
[2022-12-16 06:07] LABS: Calcium 9.1 MG/DL (8.5-10.1); Osmolality,Calculated 296.3 MOS/KG (273-304); Potassium 3.8 MMOL/L (3.5-5.1)
[2022-12-16] MEDS: predniSONE 20 MG TABLET PEG SCH (09:45)
[2022-12-16] MEDS: METOPROLOL TARTRATE 50 MG TABLET PO SCH ×2 (09:46→20:52)
[2022-12-16] MEDS: LEVOTHYROXINE 100 MCG TABLET PO SCH (09:47)
[2022-12-16] MEDS: LIOTHYRONINE 25 MCG TABLET PER TUBE SCH (09:48)
[2022-12-16] MEDS: amLODIPine 5 MG TABLET PER TUBE SCH (09:49)
[2022-12-16] MEDS: INSULIN GLARGINE 100 UNIT/ML SUBCUT SCH (09:52)
[2022-12-16] MEDS: FAMOTIDINE 20 MG/2 ML VIAL IV SCH (09:56)
[2022-12-16] MEDS: MULTIVITAMIN LIQUID (CENTRUM) 60 ML BOTTLE PO SCH (11:44)
[2022-12-16] MEDS: QUEtiapine 25 MG TABLET PO SCH (20:52)
[2022-12-16] MEDS: ENOXAPARIN 30 MG/0.3 ML SYRINGE SUBCUT SCH (21:01)
[2022-12-17] MEDS: ALBUTEROL 1.25 MG/3 ML NEB RESP TX SCH ×4 (00:53→20:50)
[2022-12-17] MEDS: INSULIN LISPRO 100 UNIT/ML SUBCUT SCH ×4 (04:09→18:59)
[2022-12-17 05:08] LABS: Basophils % 0.3 % (0.0-0.8); Eosinophils # 0.3 10*3/uL (0.0-0.87); Eosinophils % 2.4 % (0.00-10.9); Hematocrit 25.6 VOL% (35.7-47.0); Immature Granulocytes % 1.6 %; Immature Granulocytes Absolute 0.19 #; Lymphocytes # 2.3 10*3/uL (1.4-4.0); Lymphocytes % 19.7 % (21.3-54.2); Mean Corpuscular HGB Conc 31.3 GM/DL (32-36); Mean Corpuscular Volume 83.9 FL (87-102); Mean Platelet Volume 9.1 FL (9.6-12.0); Monocytes # 0.8 10*3/uL (0.11-0.8); Monocytes % 6.6 % (1.7-12.7); NRBC # 0.02 10*3/uL; Neutrophils % 69.4 % (38.7-73.9); Platelet Count 336 T/CUMM (130-400); Red Blood Count 3.05 MC/CUMM (3.8-5.5); Red Cell Distribution Width 19.1 % (9.3-17.3); White Blood Count 11.6 T/CUMM (4-12)
[2022-12-17 05:21] LABS: Calcium 8.5 MG/DL (8.5-10.1); Osmolality,Calculated 290.7 MOS/KG (273-304); Potassium 3.5 MMOL/L (3.5-5.1)
[2022-12-17] MEDS: METOCLOPRAMIDE 10 MG/2 ML VIAL IV SCH ×3 (06:41→21:18)
[2022-12-17] MEDS: LIOTHYRONINE 25 MCG TABLET PER TUBE SCH (11:46)
[2022-12-17] MEDS: predniSONE 20 MG TABLET PEG SCH (11:47)
[2022-12-17] MEDS: amLODIPine 5 MG TABLET PER TUBE SCH (11:47)
[2022-12-17] MEDS: INSULIN GLARGINE 100 UNIT/ML SUBCUT SCH (11:47)
[2022-12-17] MEDS: METOPROLOL TARTRATE 50 MG TABLET PO SCH ×2 (11:47→21:17)
[2022-12-17] MEDS: LEVOTHYROXINE 100 MCG TABLET PO SCH (11:49)
[2022-12-17] MEDS: MULTIVITAMIN LIQUID (CENTRUM) 60 ML BOTTLE PO SCH (11:50)
[2022-12-17] MEDS: FAMOTIDINE 20 MG/2 ML VIAL IV SCH (12:12)
[2022-12-17] MEDS: QUEtiapine 25 MG TABLET PO SCH (21:17)
[2022-12-17] MEDS: ENOXAPARIN 30 MG/0.3 ML SYRINGE SUBCUT SCH (21:17)
[2022-12-18] MEDS: INSULIN LISPRO 100 UNIT/ML SUBCUT SCH ×4 (00:45→18:39)
[2022-12-18] MEDS: ALBUTEROL 1.25 MG/3 ML NEB RESP TX SCH ×4 (03:57→20:46)
[2022-12-18 04:52] LABS: Basophils % 0.3 % (0.0-0.8); Eosinophils # 0.2 10*3/uL (0.0-0.87); Eosinophils % 1.4 % (0.00-10.9); Hematocrit 25.8 VOL% (35.7-47.0); Immature Granulocytes % 1.8 %; Immature Granulocytes Absolute 0.21 #; Lymphocytes # 2.1 10*3/uL (1.4-4.0); Mean Platelet Volume 10.1 FL (9.6-12.0); Monocytes # 0.8 10*3/uL (0.11-0.8); Monocytes % 6.6 % (1.7-12.7); NRBC # 0.02 10*3/uL; Neutrophils % 71.9 % (38.7-73.9); Platelet Count 343 T/CUMM (130-400); Red Blood Count 3.07 MC/CUMM (3.8-5.5); Red Cell Distribution Width 19.1 % (9.3-17.3); White Blood Count 11.5 T/CUMM (4-12)
[2022-12-18 05:10] LABS: Calcium 8.3 MG/DL (8.5-10.1); Osmolality,Calculated 293.8 MOS/KG (273-304); Potassium 3.5 MMOL/L (3.5-5.1)
[2022-12-18] MEDS: METOCLOPRAMIDE 10 MG/2 ML VIAL IV SCH ×3 (06:35→20:29)
[2022-12-18] MEDS: LIOTHYRONINE 25 MCG TABLET PER TUBE SCH (06:36)
[2022-12-18] MEDS: LEVOTHYROXINE 100 MCG TABLET PO SCH (06:36)
[2022-12-18] MEDS: FAMOTIDINE 20 MG/2 ML VIAL IV SCH (10:38)
[2022-12-18] MEDS: predniSONE 20 MG TABLET PEG SCH (10:39)
[2022-12-18] MEDS: amLODIPine 5 MG TABLET PER TUBE SCH (10:39)
[2022-12-18] MEDS: MULTIVITAMIN LIQUID (CENTRUM) 60 ML BOTTLE PO SCH (10:39)
[2022-12-18] MEDS: INSULIN GLARGINE 100 UNIT/ML SUBCUT SCH (10:39)
[2022-12-18] MEDS: METOPROLOL TARTRATE 50 MG TABLET PO SCH ×2 (10:39→20:28)
[2022-12-18] MEDS: QUEtiapine 25 MG TABLET PO SCH (20:28)
[2022-12-18] MEDS: ENOXAPARIN 30 MG/0.3 ML SYRINGE SUBCUT SCH (20:29)
[2022-12-19] MEDS: ALBUTEROL 1.25 MG/3 ML NEB RESP TX SCH ×4 (01:39→20:27)
[2022-12-19] MEDS: INSULIN LISPRO 100 UNIT/ML SUBCUT SCH ×3 (02:59→13:41)
[2022-12-19 04:34] LABS: Basophils % 0.4 % (0.0-0.8); Eosinophils # 0.3 10*3/uL (0.0-0.87); Eosinophils % 2.5 % (0.00-10.9); Hematocrit 26.5 VOL% (35.7-47.0); Hemoglobin 8.3 GM/DL (12.0-16.0); Immature Granulocytes % 1.5 %; Immature Granulocytes Absolute 0.16 #; Lymphocytes # 2.2 10*3/uL (1.4-4.0); Lymphocytes % 20.3 % (21.3-54.2); Mean Corpuscular HGB Conc 31.3 GM/DL (32-36); Mean Corpuscular Volume 84.4 FL (87-102); Mean Platelet Volume 9.4 FL (9.6-12.0); Monocytes # 0.7 10*3/uL (0.11-0.8); Monocytes % 6.2 % (1.7-12.7); Neutrophils % 69.1 % (38.7-73.9); Platelet Count 331 T/CUMM (130-400); Red Blood Count 3.14 MC/CUMM (3.8-5.5); Red Cell Distribution Width 19.1 % (9.3-17.3); White Blood Count 10.87 T/CUMM (4-12)
[2022-12-19 05:04] LABS: Calcium 8.4 MG/DL (8.5-10.1); Osmolality,Calculated 294.5 MOS/KG (273-304); Potassium 3.3 MMOL/L (3.5-5.1)
[2022-12-19] MEDS ORDERED: POTASSIUM CHLORIDE 20 MEQ TABLET PO ONE (05:09)
[2022-12-19] MEDS: METOCLOPRAMIDE 10 MG/2 ML VIAL IV SCH ×3 (05:46→21:46)
[2022-12-19] MEDS: LIOTHYRONINE 25 MCG TABLET PER TUBE SCH (06:01)
[2022-12-19] MEDS: LEVOTHYROXINE 100 MCG TABLET PO SCH (06:01)
[2022-12-19] MEDS: METOPROLOL TARTRATE 50 MG TABLET PO SCH ×2 (08:58→21:45)
[2022-12-19] MEDS: amLODIPine 5 MG TABLET PER TUBE SCH (08:58)
[2022-12-19] MEDS: predniSONE 20 MG TABLET PEG SCH (08:58)
[2022-12-19] MEDS: FAMOTIDINE 20 MG/2 ML VIAL IV SCH (08:59)
[2022-12-19] MEDS: MULTIVITAMIN LIQUID (CENTRUM) 60 ML BOTTLE PO SCH (09:01)
[2022-12-19] MEDS: INSULIN GLARGINE 100 UNIT/ML SUBCUT SCH (09:02)
[2022-12-19] MEDS: POTASSIUM CHLORIDE RIDER 10 MEQ/100 ML PREMIX IV PRN ×3 (09:03→11:05)
[2022-12-19 11:32] LABS: Total Protein 24 Hr Ur Result 2294 MG/24HR (0-149.1); Total Volume,Urine 1550 ML (400-2000)
[2022-12-19 12:09] LABS: Creatinine Clearance Urine 15.16 ML/MIN (70-115)
[2022-12-19] MEDS: QUEtiapine 25 MG TABLET PO SCH (21:45)
[2022-12-19] MEDS: ENOXAPARIN 30 MG/0.3 ML SYRINGE SUBCUT SCH (21:46)
[2022-12-20] MEDS: INSULIN LISPRO 100 UNIT/ML SUBCUT SCH ×5 (00:56→18:23)
[2022-12-20] MEDS: ALBUTEROL 1.25 MG/3 ML NEB RESP TX SCH ×4 (01:14→19:19)
[2022-12-20 05:22] LABS: Basophils % 0.3 % (0.0-0.8); Eosinophils # 0.2 10*3/uL (0.0-0.87); Eosinophils % 2.1 % (0.00-10.9); Hematocrit 27.6 VOL% (35.7-47.0); Hemoglobin 8.5 GM/DL (12.0-16.0); Immature Granulocytes % 1.3 %; Immature Granulocytes Absolute 0.14 #; Lymphocytes # 2.3 10*3/uL (1.4-4.0); Lymphocytes % 21.9 % (21.3-54.2); Mean Corpuscular HGB Conc 30.8 GM/DL (32-36); Mean Corpuscular Volume 83.6 FL (87-102); Mean Platelet Volume 9.8 FL (9.6-12.0); Monocytes # 0.8 10*3/uL (0.11-0.8); Monocytes % 7.5 % (1.7-12.7); NRBC # 0.02 10*3/uL; Neutrophils % 66.9 % (38.7-73.9); Platelet Count 354 T/CUMM (130-400); Red Cell Distribution Width 19.1 % (9.3-17.3); White Blood Count 10.48 T/CUMM (4-12)
[2022-12-20 06:00] LABS: Calcium 8.8 MG/DL (8.5-10.1); Osmolality,Calculated 287.7 MOS/KG (273-304); Potassium 3.9 MMOL/L (3.5-5.1)
[2022-12-20] MEDS: METOCLOPRAMIDE 10 MG/2 ML VIAL IV SCH ×3 (06:22→21:02)
[2022-12-20] MEDS: amLODIPine 5 MG TABLET PER TUBE SCH (10:34)
[2022-12-20] MEDS: METOPROLOL TARTRATE 50 MG TABLET PO SCH ×2 (10:34→20:57)
[2022-12-20] MEDS: LEVOTHYROXINE 100 MCG TABLET PO SCH (10:34)
[2022-12-20] MEDS: LIOTHYRONINE 25 MCG TABLET PER TUBE SCH (10:34)
[2022-12-20] MEDS: FAMOTIDINE 20 MG/2 ML VIAL IV SCH (10:34)
[2022-12-20] MEDS: predniSONE 20 MG TABLET PEG SCH (10:34)
[2022-12-20] MEDS: MULTIVITAMIN LIQUID (CENTRUM) 60 ML BOTTLE PO SCH (10:35)
[2022-12-20] MEDS: INSULIN GLARGINE 100 UNIT/ML SUBCUT SCH (10:35)
[2022-12-20] MEDS ORDERED: TUBERCULIN SKIN TEST 0.1 ML SYRINGE INTRADERM ONE (13:11)
[2022-12-20] MEDS: QUEtiapine 25 MG TABLET PO SCH (20:57)
[2022-12-20] MEDS: ENOXAPARIN 30 MG/0.3 ML SYRINGE SUBCUT SCH (21:02)
[2022-12-21] MEDS: ALBUTEROL 1.25 MG/3 ML NEB RESP TX SCH ×4 (00:33→20:05)
[2022-12-21] MEDS: INSULIN LISPRO 100 UNIT/ML SUBCUT SCH ×5 (01:59→23:58)
[2022-12-21] MEDS: METOCLOPRAMIDE 10 MG/2 ML VIAL IV SCH ×3 (06:06→21:14)
[2022-12-21] MEDS: INSULIN GLARGINE 100 UNIT/ML SUBCUT SCH (08:25)
[2022-12-21] MEDS: METOPROLOL TARTRATE 50 MG TABLET PO SCH ×2 (08:26→21:14)
[2022-12-21] MEDS: amLODIPine 5 MG TABLET PER TUBE SCH (08:26)
[2022-12-21] MEDS: predniSONE 20 MG TABLET PEG SCH (08:26)
[2022-12-21] MEDS: LEVOTHYROXINE 100 MCG TABLET PO SCH (08:26)
[2022-12-21] MEDS: MULTIVITAMIN LIQUID (CENTRUM) 60 ML BOTTLE PO SCH (08:27)
[2022-12-21] MEDS: FAMOTIDINE 20 MG/2 ML VIAL IV SCH (09:26)
[2022-12-21] MEDS: LIOTHYRONINE 25 MCG TABLET PER TUBE SCH (11:12)
[2022-12-21] MEDS: QUEtiapine 25 MG TABLET PO SCH (21:14)
[2022-12-21] MEDS: ENOXAPARIN 30 MG/0.3 ML SYRINGE SUBCUT SCH (21:14)
[2022-12-22] MEDS: ALBUTEROL 1.25 MG/3 ML NEB RESP TX SCH ×4 (00:57→22:11)
[2022-12-22] MEDS: INSULIN LISPRO 100 UNIT/ML SUBCUT SCH ×3 (05:37→19:55)
[2022-12-22] MEDS: METOCLOPRAMIDE 10 MG/2 ML VIAL IV SCH ×3 (05:46→21:26)
[2022-12-22] MEDS ORDERED: MEPERIDINE 50 MG/1 ML VIAL IM ONE (07:00)
[2022-12-22] MEDS ORDERED: PROMETHAZINE 25 MG/1 ML VIAL IM ONE (07:00)
[2022-12-22] MEDS ORDERED: MIDAZOLAM 2 MG/2 ML VIAL IV ONE (07:30)
[2022-12-22] MEDS ORDERED: LIDOCAINE 2% 20 ML VIAL RESP TX ONE (07:30)
[2022-12-22] MEDS ORDERED: LIDOCAINE 1% 20 ML VIAL MISC INJ ONE (07:30)
[2022-12-22] MEDS ORDERED: LIDOCAINE 2% VISCOUS 100 ML BOTTLE SWISH/SPIT ONE (07:30)
[2022-12-22 09:15] LABS: Basophils % 0.4 % (0.0-0.8); Eosinophils # 0.3 10*3/uL (0.0-0.87); Eosinophils % 2.8 % (0.00-10.9); Hematocrit 30.3 VOL% (35.7-47.0); Hemoglobin 9.3 GM/DL (12.0-16.0); Immature Granulocytes % 1.4 %; Immature Granulocytes Absolute 0.14 #; Lymphocytes # 2.7 10*3/uL (1.4-4.0); Lymphocytes % 27.1 % (21.3-54.2); Mean Corpuscular HGB Conc 30.7 GM/DL (32-36); Mean Corpuscular Volume 85.4 FL (87-102); Mean Platelet Volume 9.4 FL (9.6-12.0); Monocytes % 9.6 % (1.7-12.7); NRBC # 0.03 10*3/uL; Neutrophils % 58.7 % (38.7-73.9); Platelet Count 335 T/CUMM (130-400); Red Blood Count 3.55 MC/CUMM (3.8-5.5); White Blood Count 9.99 T/CUMM (4-12)
[2022-12-22 09:29] LABS: Osmolality,Calculated 284.4 MOS/KG (273-304); Potassium 3.9 MMOL/L (3.5-5.1)
[2022-12-22] MEDS: INSULIN GLARGINE 100 UNIT/ML SUBCUT SCH (12:17)
[2022-12-22] MEDS: amLODIPine 5 MG TABLET PER TUBE SCH (12:20)
[2022-12-22] MEDS: METOPROLOL TARTRATE 50 MG TABLET PO SCH ×2 (12:20→21:26)
[2022-12-22] MEDS: predniSONE 20 MG TABLET PEG SCH (12:21)
[2022-12-22] MEDS: LIOTHYRONINE 25 MCG TABLET PER TUBE SCH (12:21)
[2022-12-22] MEDS: LEVOTHYROXINE 100 MCG TABLET PO SCH (12:21)
[2022-12-22] MEDS: MULTIVITAMIN LIQUID (CENTRUM) 60 ML BOTTLE PO SCH (12:21)
[2022-12-22] MEDS: FAMOTIDINE 20 MG/2 ML VIAL IV SCH (12:21)
[2022-12-22] MEDS: QUEtiapine 25 MG TABLET PO SCH (21:26)
[2022-12-22] MEDS: ENOXAPARIN 30 MG/0.3 ML SYRINGE SUBCUT SCH (21:26)
[2022-12-23] MEDS: ALBUTEROL 1.25 MG/3 ML NEB RESP TX SCH ×4 (01:40→21:40)
[2022-12-23] MEDS: INSULIN LISPRO 100 UNIT/ML SUBCUT SCH ×4 (02:24→18:39)
[2022-12-23] MEDS: METOCLOPRAMIDE 10 MG/2 ML VIAL IV SCH ×3 (06:30→21:33)
[2022-12-23] MEDS: LIOTHYRONINE 25 MCG TABLET PER TUBE SCH (06:31)
[2022-12-23] MEDS: LEVOTHYROXINE 100 MCG TABLET PO SCH (06:32)
[2022-12-23] MEDS: FAMOTIDINE 20 MG/2 ML VIAL IV SCH (08:46)
[2022-12-23] MEDS: amLODIPine 5 MG TABLET PER TUBE SCH (08:47)
[2022-12-23] MEDS: predniSONE 20 MG TABLET PEG SCH (08:48)
[2022-12-23] MEDS: METOPROLOL TARTRATE 50 MG TABLET PO SCH ×2 (08:48→21:34)
[2022-12-23] MEDS ORDERED: INSULIN GLARGINE 100 UNIT/ML SUBCUT SCH (09:00)
[2022-12-23] MEDS: MULTIVITAMIN LIQUID (CENTRUM) 60 ML BOTTLE PO SCH (10:54)
[2022-12-23] MEDS: ENOXAPARIN 30 MG/0.3 ML SYRINGE SUBCUT SCH (21:33)
[2022-12-23] MEDS: QUEtiapine 25 MG TABLET PO SCH (21:34)
[2022-12-24] MEDS: INSULIN LISPRO 100 UNIT/ML SUBCUT SCH ×4 (00:36→21:24)
[2022-12-24] MEDS: ALBUTEROL 1.25 MG/3 ML NEB RESP TX SCH ×4 (02:09→19:10)
[2022-12-24 05:20] LABS: Basophils % 0.3 % (0.0-0.8); Eosinophils # 0.1 10*3/uL (0.0-0.87); Eosinophils % 0.6 % (0.00-10.9); Hematocrit 29.6 VOL% (35.7-47.0); Hemoglobin 8.9 GM/DL (12.0-16.0); Immature Granulocytes % 1.4 %; Immature Granulocytes Absolute 0.12 #; Lymphocytes # 1.5 10*3/uL (1.4-4.0); Lymphocytes % 17.2 % (21.3-54.2); Mean Corpuscular HGB Conc 30.1 GM/DL (32-36); Mean Corpuscular Volume 86.3 FL (87-102); Mean Platelet Volume 9.5 FL (9.6-12.0); Monocytes # 0.7 10*3/uL (0.11-0.8); NRBC # 0.03 10*3/uL; Neutrophils % 72.5 % (38.7-73.9); Platelet Count 329 T/CUMM (130-400); Red Blood Count 3.43 MC/CUMM (3.8-5.5); Red Cell Distribution Width 18.9 % (9.3-17.3); White Blood Count 8.85 T/CUMM (4-12)
[2022-12-24 05:37] LABS: Calcium 9.1 MG/DL (8.5-10.1); Potassium 4.6 MMOL/L (3.5-5.1)
[2022-12-24] MEDS: LIOTHYRONINE 25 MCG TABLET PER TUBE SCH (06:28)
[2022-12-24] MEDS: LEVOTHYROXINE 100 MCG TABLET PO SCH (06:28)
[2022-12-24] MEDS: METOCLOPRAMIDE 10 MG/2 ML VIAL IV SCH ×3 (06:29→21:23)
[2022-12-24] MEDS: amLODIPine 5 MG TABLET PER TUBE SCH (09:36)
[2022-12-24] MEDS: predniSONE 20 MG TABLET PEG SCH (09:36)
[2022-12-24] MEDS: METOPROLOL TARTRATE 50 MG TABLET PO SCH ×2 (09:37→21:24)
[2022-12-24] MEDS: MULTIVITAMIN LIQUID (CENTRUM) 60 ML BOTTLE PO SCH (09:39)
[2022-12-24] MEDS: INSULIN GLARGINE 100 UNIT/ML SUBCUT SCH (09:40)
[2022-12-24] MEDS: FAMOTIDINE 20 MG/2 ML VIAL IV SCH (10:54)
[2022-12-24] MEDS: QUEtiapine 25 MG TABLET PO SCH (21:24)
[2022-12-24] MEDS: ENOXAPARIN 30 MG/0.3 ML SYRINGE SUBCUT SCH (21:24)
[2022-12-25] MEDS: INSULIN LISPRO 100 UNIT/ML SUBCUT SCH ×4 (00:24→18:09)
[2022-12-25] MEDS: ALBUTEROL 1.25 MG/3 ML NEB RESP TX SCH ×4 (00:55→19:00)
[2022-12-25] MEDS: METOCLOPRAMIDE 10 MG/2 ML VIAL IV SCH ×3 (05:59→22:37)
[2022-12-25] MEDS: LIOTHYRONINE 25 MCG TABLET PER TUBE SCH (06:00)
[2022-12-25] MEDS: LEVOTHYROXINE 100 MCG TABLET PO SCH (06:00)
[2022-12-25] MEDS: INSULIN GLARGINE 100 UNIT/ML SUBCUT SCH (09:13)
[2022-12-25] MEDS: FAMOTIDINE 20 MG/2 ML VIAL IV SCH (09:13)
[2022-12-25] MEDS: MULTIVITAMIN LIQUID (CENTRUM) 60 ML BOTTLE PO SCH (09:44)
[2022-12-25] MEDS: METOPROLOL TARTRATE 50 MG TABLET PO SCH ×2 (09:45→22:29)
[2022-12-25] MEDS: amLODIPine 5 MG TABLET PER TUBE SCH (09:47)
[2022-12-25] MEDS: predniSONE 20 MG TABLET PEG SCH (09:47)
[2022-12-25] MEDS: QUEtiapine 25 MG TABLET PO SCH (22:29)
[2022-12-25] MEDS: ENOXAPARIN 30 MG/0.3 ML SYRINGE SUBCUT SCH (22:29)
[2022-12-26] MEDS: INSULIN LISPRO 100 UNIT/ML SUBCUT SCH ×4 (01:23→18:32)
[2022-12-26] MEDS: ALBUTEROL 1.25 MG/3 ML NEB RESP TX SCH ×4 (01:44→20:02)
[2022-12-26] MEDS: METOCLOPRAMIDE 10 MG/2 ML VIAL IV SCH ×3 (05:43→22:49)
[2022-12-26] MEDS: LIOTHYRONINE 25 MCG TABLET PER TUBE SCH (06:16)
[2022-12-26] MEDS: LEVOTHYROXINE 100 MCG TABLET PO SCH (06:16)
[2022-12-26] MEDS: METOPROLOL TARTRATE 50 MG TABLET PO SCH ×2 (10:16→22:49)
[2022-12-26] MEDS: amLODIPine 5 MG TABLET PER TUBE SCH (10:17)
[2022-12-26] MEDS: predniSONE 20 MG TABLET PEG SCH (10:17)
[2022-12-26] MEDS: INSULIN GLARGINE 100 UNIT/ML SUBCUT SCH (10:17)
[2022-12-26] MEDS: MULTIVITAMIN LIQUID (CENTRUM) 60 ML BOTTLE PO SCH (10:19)
[2022-12-26] MEDS: FAMOTIDINE 20 MG/2 ML VIAL IV SCH (12:15)
[2022-12-26] MEDS: QUEtiapine 25 MG TABLET PO SCH (22:49)
[2022-12-26] MEDS: ENOXAPARIN 30 MG/0.3 ML SYRINGE SUBCUT SCH (22:49)
[2022-12-27] MEDS: INSULIN LISPRO 100 UNIT/ML SUBCUT SCH ×4 (01:28→18:42)
[2022-12-27] MEDS: ALBUTEROL 1.25 MG/3 ML NEB RESP TX SCH ×4 (01:31→19:28)
[2022-12-27] MEDS: METOCLOPRAMIDE 10 MG/2 ML VIAL IV SCH ×3 (06:37→22:35)
[2022-12-27] MEDS: LIOTHYRONINE 25 MCG TABLET PER TUBE SCH (06:40)
[2022-12-27] MEDS: LEVOTHYROXINE 100 MCG TABLET PO SCH (06:40)
[2022-12-27] MEDS: INSULIN GLARGINE 100 UNIT/ML SUBCUT SCH (10:38)
[2022-12-27] MEDS: MULTIVITAMIN LIQUID (CENTRUM) 60 ML BOTTLE PO SCH (10:38)
[2022-12-27] MEDS: METOPROLOL TARTRATE 50 MG TABLET PO SCH ×2 (10:39→22:55)
[2022-12-27] MEDS: FAMOTIDINE 20 MG/2 ML VIAL IV SCH (10:39)
[2022-12-27] MEDS: amLODIPine 5 MG TABLET PER TUBE SCH (10:39)
[2022-12-27] MEDS: predniSONE 20 MG TABLET PEG SCH (10:39)
[2022-12-27] MEDS: ENOXAPARIN 30 MG/0.3 ML SYRINGE SUBCUT SCH (22:54)
[2022-12-27] MEDS: QUEtiapine 25 MG TABLET PO SCH (22:55)
[2022-12-28] MEDS: ALBUTEROL 1.25 MG/3 ML NEB RESP TX SCH ×4 (00:25→21:16)
[2022-12-28] MEDS: DEXTROSE 10% 250 ML BAG IV PRN ×2 (00:48→05:32)
[2022-12-28] MEDS: INSULIN LISPRO 100 UNIT/ML SUBCUT SCH ×4 (00:49→19:47)
[2022-12-28 04:47] LABS: Basophils % 0.4 % (0.0-0.8); Eosinophils # 0.3 10*3/uL (0.0-0.87); Eosinophils % 3.4 % (0.00-10.9); Hematocrit 30.9 VOL% (35.7-47.0); Hemoglobin 9.3 GM/DL (12.0-16.0); Immature Granulocytes % 1.6 %; Immature Granulocytes Absolute 0.15 #; Lymphocytes # 2.9 10*3/uL (1.4-4.0); Lymphocytes % 30.1 % (21.3-54.2); Mean Corpuscular HGB Conc 30.1 GM/DL (32-36); Mean Corpuscular Volume 87.3 FL (87-102); Mean Platelet Volume 9.3 FL (9.6-12.0); Monocytes % 9.9 % (1.7-12.7); Neutrophils % 54.6 % (38.7-73.9); Platelet Count 340 T/CUMM (130-400); Red Blood Count 3.54 MC/CUMM (3.8-5.5); Red Cell Distribution Width 18.4 % (9.3-17.3); White Blood Count 9.59 T/CUMM (4-12)
[2022-12-28 05:00] LABS: Calcium 8.9 MG/DL (8.5-10.1); Osmolality,Calculated 280.5 MOS/KG (273-304); Potassium 3.5 MMOL/L (3.5-5.1)
[2022-12-28] MEDS: METOCLOPRAMIDE 10 MG/2 ML VIAL IV SCH ×3 (05:32→22:04)
[2022-12-28] MEDS: LIOTHYRONINE 25 MCG TABLET PER TUBE SCH (06:46)
[2022-12-28] MEDS: LEVOTHYROXINE 100 MCG TABLET PO SCH (10:04)
[2022-12-28] MEDS: METOPROLOL TARTRATE 50 MG TABLET PO SCH ×2 (10:04→21:54)
[2022-12-28] MEDS: amLODIPine 5 MG TABLET PER TUBE SCH (10:04)
[2022-12-28] MEDS: predniSONE 20 MG TABLET PEG SCH (10:04)
[2022-12-28] MEDS: FAMOTIDINE 20 MG/2 ML VIAL IV SCH (10:05)
[2022-12-28] MEDS: INSULIN GLARGINE 100 UNIT/ML SUBCUT SCH (11:01)
[2022-12-28] MEDS: MULTIVITAMIN LIQUID (CENTRUM) 60 ML BOTTLE PO SCH (18:17)
[2022-12-28] MEDS: ENOXAPARIN 30 MG/0.3 ML SYRINGE SUBCUT SCH (21:54)
[2022-12-28] MEDS: QUEtiapine 25 MG TABLET PO SCH (21:54)
[2022-12-29] MEDS: INSULIN LISPRO 100 UNIT/ML SUBCUT SCH ×4 (01:09→18:19)
[2022-12-29] MEDS: ALBUTEROL 1.25 MG/3 ML NEB RESP TX SCH ×4 (02:36→19:30)
[2022-12-29 05:19] LABS: Basophils % 0.2 % (0.0-0.8); Eosinophils # 0.2 10*3/uL (0.0-0.87); Hematocrit 30.9 VOL% (35.7-47.0); Hemoglobin 9.5 GM/DL (12.0-16.0); Immature Granulocytes % 1.4 %; Immature Granulocytes Absolute 0.15 #; Lymphocytes # 2.5 10*3/uL (1.4-4.0); Lymphocytes % 22.8 % (21.3-54.2); Mean Corpuscular HGB Conc 30.7 GM/DL (32-36); Mean Corpuscular Volume 85.6 FL (87-102); Mean Platelet Volume 9.9 FL (9.6-12.0); Monocytes % 8.9 % (1.7-12.7); Neutrophils % 64.7 % (38.7-73.9); Platelet Count 354 T/CUMM (130-400); Red Blood Count 3.61 MC/CUMM (3.8-5.5); Red Cell Distribution Width 18.4 % (9.3-17.3); White Blood Count 10.81 T/CUMM (4-12)
[2022-12-29] MEDS: METOCLOPRAMIDE 10 MG/2 ML VIAL IV SCH ×3 (05:47→22:08)
[2022-12-29 05:50] LABS: Calcium 9.2 MG/DL (8.5-10.1); Osmolality,Calculated 286.8 MOS/KG (273-304); Potassium 3.8 MMOL/L (3.5-5.1)
[2022-12-29] MEDS: LEVOTHYROXINE 100 MCG TABLET PO SCH (06:14)
[2022-12-29] MEDS: LIOTHYRONINE 25 MCG TABLET PER TUBE SCH (06:14)
[2022-12-29] MEDS: amLODIPine 5 MG TABLET PER TUBE SCH (11:14)
[2022-12-29] MEDS: METOPROLOL TARTRATE 50 MG TABLET PO SCH ×2 (11:14→22:08)
[2022-12-29] MEDS: FAMOTIDINE 20 MG/2 ML VIAL IV SCH (11:15)
[2022-12-29] MEDS: predniSONE 20 MG TABLET PEG SCH (11:15)
[2022-12-29] MEDS: MULTIVITAMIN LIQUID (CENTRUM) 60 ML BOTTLE PO SCH (11:18)
[2022-12-29] MEDS: INSULIN GLARGINE 100 UNIT/ML SUBCUT SCH (11:22)
[2022-12-29] MEDS: QUEtiapine 25 MG TABLET PO SCH (22:08)
[2022-12-29] MEDS: ENOXAPARIN 30 MG/0.3 ML SYRINGE SUBCUT SCH (22:08)
[2022-12-30] MEDS: INSULIN LISPRO 100 UNIT/ML SUBCUT SCH ×4 (00:16→18:07)
[2022-12-30] MEDS: ALBUTEROL 1.25 MG/3 ML NEB RESP TX SCH ×4 (01:00→20:07)
[2022-12-30 04:54] LABS: Basophils % 0.2 % (0.0-0.8); Eosinophils # 0.1 10*3/uL (0.0-0.87); Eosinophils % 0.9 % (0.00-10.9); Hematocrit 27.8 VOL% (35.7-47.0); Hemoglobin 8.8 GM/DL (12.0-16.0); Immature Granulocytes % 1.3 %; Immature Granulocytes Absolute 0.16 #; Lymphocytes # 2.3 10*3/uL (1.4-4.0); Lymphocytes % 18.4 % (21.3-54.2); Mean Corpuscular HGB Conc 31.7 GM/DL (32-36); Monocytes # 1.1 10*3/uL (0.11-0.8); Neutrophils % 70.2 % (38.7-73.9); Platelet Count 315 T/CUMM (130-400); Red Blood Count 3.27 MC/CUMM (3.8-5.5); Red Cell Distribution Width 18.3 % (9.3-17.3); White Blood Count 12.64 T/CUMM (4-12)
[2022-12-30 05:15] LABS: Calcium 9.4 MG/DL (8.5-10.1); Osmolality,Calculated 284.8 MOS/KG (273-304); Potassium 3.6 MMOL/L (3.5-5.1)
[2022-12-30] MEDS: METOCLOPRAMIDE 10 MG/2 ML VIAL IV SCH ×3 (06:06→21:59)
[2022-12-30] MEDS: METOPROLOL TARTRATE 50 MG TABLET PO SCH ×2 (09:07→21:59)
[2022-12-30] MEDS: LIOTHYRONINE 25 MCG TABLET PER TUBE SCH (09:07)
[2022-12-30] MEDS: LEVOTHYROXINE 100 MCG TABLET PO SCH (09:08)
[2022-12-30] MEDS: amLODIPine 5 MG TABLET PER TUBE SCH (09:08)
[2022-12-30] MEDS: predniSONE 20 MG TABLET PEG SCH (09:08)
[2022-12-30] MEDS: FAMOTIDINE 20 MG/2 ML VIAL IV SCH (09:08)
[2022-12-30] MEDS: INSULIN GLARGINE 100 UNIT/ML SUBCUT SCH (09:19)
[2022-12-30] MEDS: MULTIVITAMIN LIQUID (CENTRUM) 60 ML BOTTLE PO SCH (14:04)
[2022-12-30] MEDS: QUEtiapine 25 MG TABLET PO SCH (21:59)
[2022-12-30] MEDS: ENOXAPARIN 30 MG/0.3 ML SYRINGE SUBCUT SCH (21:59)
[2022-12-31] MEDS: ALBUTEROL 1.25 MG/3 ML NEB RESP TX SCH ×4 (00:33→19:41)
[2022-12-31] MEDS: INSULIN LISPRO 100 UNIT/ML SUBCUT SCH ×4 (00:44→18:29)
[2022-12-31 04:48] LABS: Hematocrit 29.2 VOL% (35.7-47.0); Mean Corpuscular HGB Conc 30.8 GM/DL (32-36); Mean Corpuscular Volume 85.6 FL (87-102); Mean Platelet Volume 8.9 FL (9.6-12.0); Platelet Count 315 T/CUMM (130-400); Red Blood Count 3.41 MC/CUMM (3.8-5.5); Red Cell Distribution Width 18.1 % (9.3-17.3); White Blood Count 12.01 T/CUMM (4-12)
[2022-12-31 04:49] LABS: Basophils % 0.3 % (0.0-0.8); Eosinophils # 0.2 10*3/uL (0.0-0.87); Eosinophils % 1.3 % (0.00-10.9); Immature Granulocytes % 1.5 %; Immature Granulocytes Absolute 0.18 #; Lymphocytes # 2.7 10*3/uL (1.4-4.0); Lymphocytes % 22.1 % (21.3-54.2); Monocytes % 7.9 % (1.7-12.7); NRBC # 0.02 10*3/uL; Neutrophils % 66.9 % (38.7-73.9)
[2022-12-31 05:08] LABS: Calcium 9.4 MG/DL (8.5-10.1); Osmolality,Calculated 289.4 MOS/KG (273-304); Potassium 3.5 MMOL/L (3.5-5.1)
[2022-12-31] MEDS: LEVOTHYROXINE 100 MCG TABLET PO SCH (06:30)
[2022-12-31] MEDS: LIOTHYRONINE 25 MCG TABLET PER TUBE SCH (06:30)
[2022-12-31] MEDS: METOCLOPRAMIDE 10 MG/2 ML VIAL IV SCH ×3 (06:30→21:45)
[2022-12-31] MEDS: amLODIPine 5 MG TABLET PER TUBE SCH (09:08)
[2022-12-31] MEDS: FAMOTIDINE 20 MG/2 ML VIAL IV SCH (09:08)
[2022-12-31] MEDS: MULTIVITAMIN LIQUID (CENTRUM) 60 ML BOTTLE PO SCH (09:08)
[2022-12-31] MEDS: METOPROLOL TARTRATE 50 MG TABLET PO SCH ×2 (09:08→21:41)
[2022-12-31] MEDS: predniSONE 10 MG TABLET PEG SCH (09:09)
[2022-12-31] MEDS: INSULIN GLARGINE 100 UNIT/ML SUBCUT SCH (09:11)
[2022-12-31] MEDS: QUEtiapine 25 MG TABLET PO SCH (21:42)
[2022-12-31] MEDS: ENOXAPARIN 30 MG/0.3 ML SYRINGE SUBCUT SCH (21:42)
[2023-01-01] MEDS: ALBUTEROL 1.25 MG/3 ML NEB RESP TX SCH ×4 (01:12→19:20)
[2023-01-01] MEDS: INSULIN LISPRO 100 UNIT/ML SUBCUT SCH ×4 (05:00→18:30)
[2023-01-01] MEDS: METOCLOPRAMIDE 10 MG/2 ML VIAL IV SCH ×3 (05:59→21:31)
[2023-01-01] MEDS: LEVOTHYROXINE 100 MCG TABLET PO SCH (06:00)
[2023-01-01] MEDS: LIOTHYRONINE 25 MCG TABLET PER TUBE SCH (06:00)
[2023-01-01] MEDS: MULTIVITAMIN LIQUID (CENTRUM) 60 ML BOTTLE PO SCH (10:00)
[2023-01-01] MEDS: FAMOTIDINE 20 MG/2 ML VIAL IV SCH (10:00)
[2023-01-01] MEDS: predniSONE 10 MG TABLET PEG SCH (10:00)
[2023-01-01] MEDS: amLODIPine 5 MG TABLET PER TUBE SCH (10:00)
[2023-01-01] MEDS: METOPROLOL TARTRATE 50 MG TABLET PO SCH ×2 (10:00→21:31)
[2023-01-01] MEDS: INSULIN GLARGINE 100 UNIT/ML SUBCUT SCH (10:00)
[2023-01-01] MEDS: QUEtiapine 25 MG TABLET PO SCH (21:31)
[2023-01-01] MEDS: ENOXAPARIN 30 MG/0.3 ML SYRINGE SUBCUT SCH (21:31)
[2023-01-02] MEDS: INSULIN LISPRO 100 UNIT/ML SUBCUT SCH ×4 (00:37→17:00)
[2023-01-02] MEDS: ALBUTEROL 1.25 MG/3 ML NEB RESP TX SCH ×5 (01:35→19:00)
[2023-01-02] MEDS: METOCLOPRAMIDE 10 MG/2 ML VIAL IV SCH ×3 (05:36→21:53)
[2023-01-02 05:40] LABS: Basophils % 0.3 % (0.0-0.8); Eosinophils # 0.2 10*3/uL (0.0-0.87); Eosinophils % 1.6 % (0.00-10.9); Hematocrit 31.2 VOL% (35.7-47.0); Hemoglobin 9.6 GM/DL (12.0-16.0); Immature Granulocytes % 1.3 %; Immature Granulocytes Absolute 0.15 #; Lymphocytes # 2.7 10*3/uL (1.4-4.0); Lymphocytes % 23.7 % (21.3-54.2); Mean Corpuscular HGB Conc 30.8 GM/DL (32-36); Mean Corpuscular Volume 86.2 FL (87-102); Mean Platelet Volume 9.6 FL (9.6-12.0); Monocytes % 8.8 % (1.7-12.7); NRBC # 0.02 10*3/uL; Neutrophils % 64.3 % (38.7-73.9); Platelet Count 325 T/CUMM (130-400); Red Blood Count 3.62 MC/CUMM (3.8-5.5); Red Cell Distribution Width 17.9 % (9.3-17.3); White Blood Count 11.57 T/CUMM (4-12)
[2023-01-02 05:53] LABS: Calcium 9.2 MG/DL (8.5-10.1); Osmolality,Calculated 287.5 MOS/KG (273-304); Potassium 3.7 MMOL/L (3.5-5.1)
[2023-01-02] MEDS: LEVOTHYROXINE 100 MCG TABLET PO SCH ×2 (08:42→10:16)
[2023-01-02] MEDS: LIOTHYRONINE 25 MCG TABLET PER TUBE SCH (08:42)
[2023-01-02] MEDS: METOPROLOL TARTRATE 50 MG TABLET PO SCH ×2 (10:15→21:53)
[2023-01-02] MEDS: predniSONE 10 MG TABLET PEG SCH (10:15)
[2023-01-02] MEDS: MULTIVITAMIN LIQUID (CENTRUM) 60 ML BOTTLE PO SCH (10:15)
[2023-01-02] MEDS: INSULIN GLARGINE 100 UNIT/ML SUBCUT SCH (10:15)
[2023-01-02] MEDS: amLODIPine 5 MG TABLET PER TUBE SCH (10:16)
[2023-01-02] MEDS: FAMOTIDINE 20 MG/2 ML VIAL IV SCH (10:23)
[2023-01-02] MEDS: QUEtiapine 25 MG TABLET PO SCH (21:53)
[2023-01-02] MEDS: ENOXAPARIN 30 MG/0.3 ML SYRINGE SUBCUT SCH (21:53)
[2023-01-03] MEDS: ALBUTEROL 1.25 MG/3 ML NEB RESP TX SCH ×4 (00:54→19:14)
[2023-01-03] MEDS: INSULIN LISPRO 100 UNIT/ML SUBCUT SCH ×4 (01:38→20:07)
[2023-01-03 05:22] LABS: Basophils % 0.3 % (0.0-0.8); Eosinophils # 0.2 10*3/uL (0.0-0.87); Eosinophils % 1.3 % (0.00-10.9); Hematocrit 29.3 VOL% (35.7-47.0); Hemoglobin 9.1 GM/DL (12.0-16.0); Immature Granulocytes Absolute 0.11 #; Lymphocytes # 2.7 10*3/uL (1.4-4.0); Lymphocytes % 23.2 % (21.3-54.2); Mean Corpuscular HGB Conc 31.1 GM/DL (32-36); Mean Corpuscular Volume 85.7 FL (87-102); Mean Platelet Volume 9.8 FL (9.6-12.0); Monocytes # 0.9 10*3/uL (0.11-0.8); Monocytes % 7.4 % (1.7-12.7); Neutrophils % 66.8 % (38.7-73.9); Platelet Count 327 T/CUMM (130-400); Red Blood Count 3.42 MC/CUMM (3.8-5.5); Red Cell Distribution Width 17.9 % (9.3-17.3); White Blood Count 11.56 T/CUMM (4-12)
[2023-01-03 05:39] LABS: Calcium 9.1 MG/DL (8.5-10.1); Osmolality,Calculated 287.7 MOS/KG (273-304); Potassium 3.5 MMOL/L (3.5-5.1)
[2023-01-03] MEDS: LIOTHYRONINE 25 MCG TABLET PER TUBE SCH (06:08)
[2023-01-03] MEDS: METOCLOPRAMIDE 10 MG/2 ML VIAL IV SCH ×3 (06:08→21:58)
[2023-01-03] MEDS: LEVOTHYROXINE 100 MCG TABLET PO SCH (06:08)
[2023-01-03] MEDS: predniSONE 10 MG TABLET PEG SCH (10:26)
[2023-01-03] MEDS: amLODIPine 5 MG TABLET PER TUBE SCH (10:27)
[2023-01-03] MEDS: METOPROLOL TARTRATE 50 MG TABLET PO SCH ×2 (10:27→21:58)
[2023-01-03] MEDS: FAMOTIDINE 20 MG/2 ML VIAL IV SCH (10:28)
[2023-01-03] MEDS: INSULIN GLARGINE 100 UNIT/ML SUBCUT SCH (10:29)
[2023-01-03] MEDS: MULTIVITAMIN LIQUID (CENTRUM) 60 ML BOTTLE PO SCH (15:33)
[2023-01-03 17:20] LABS: % Iron Saturation 33.5 % (18-50)
[2023-01-03 18:19] LABS: 25 Hydroxy Vitamin D Total 25.1 NG/ML (30-100); Folate 23.33 NG/ML (5.38-24.0)
[2023-01-03] MEDS: QUEtiapine 25 MG TABLET PO SCH (21:58)
[2023-01-03] MEDS: ENOXAPARIN 30 MG/0.3 ML SYRINGE SUBCUT SCH (21:58)
[2023-01-04] MEDS: ALBUTEROL 1.25 MG/3 ML NEB RESP TX SCH ×4 (00:02→19:32)
[2023-01-04] MEDS: INSULIN LISPRO 100 UNIT/ML SUBCUT SCH ×5 (00:43→19:14)
[2023-01-04 05:09] LABS: Basophils % 0.3 % (0.0-0.8); Eosinophils # 0.2 10*3/uL (0.0-0.87); Eosinophils % 1.6 % (0.00-10.9); Hemoglobin 9.1 GM/DL (12.0-16.0); Immature Granulocytes % 0.8 %; Immature Granulocytes Absolute 0.09 #; Lymphocytes # 2.6 10*3/uL (1.4-4.0); Lymphocytes % 22.3 % (21.3-54.2); Mean Corpuscular HGB Conc 31.4 GM/DL (32-36); Mean Corpuscular Volume 84.5 FL (87-102); Mean Platelet Volume 9.3 FL (9.6-12.0); Monocytes # 0.9 10*3/uL (0.11-0.8); Monocytes % 7.3 % (1.7-12.7); Neutrophils % 67.7 % (38.7-73.9); Platelet Count 289 T/CUMM (130-400); Red Blood Count 3.43 MC/CUMM (3.8-5.5); Red Cell Distribution Width 17.8 % (9.3-17.3); White Blood Count 11.65 T/CUMM (4-12)
[2023-01-04 05:10] LABS: Basophils % 0.2 % (0.0-0.8); Eosinophils # 0.2 10*3/uL (0.0-0.87); Eosinophils % 1.5 % (0.00-10.9); Hematocrit 29.1 VOL% (35.7-47.0); Immature Granulocytes % 0.9 %; Lymphocytes # 2.7 10*3/uL (1.4-4.0); Lymphocytes % 23.3 % (21.3-54.2); Mean Corpuscular HGB Conc 30.9 GM/DL (32-36); Mean Corpuscular Volume 85.6 FL (87-102); Monocytes # 0.8 10*3/uL (0.11-0.8); Monocytes % 7.2 % (1.7-12.7); Neutrophils % 66.9 % (38.7-73.9); Platelet Count 284 T/CUMM (130-400); Red Cell Distribution Width 17.7 % (9.3-17.3); White Blood Count 11.56 T/CUMM (4-12)
[2023-01-04 05:29] LABS: Calcium 9.1 MG/DL (8.5-10.1); Osmolality,Calculated 288.5 MOS/KG (273-304); Potassium 3.7 MMOL/L (3.5-5.1)
[2023-01-04 05:37] LABS: Folate 23.12 NG/ML (5.38-24.0); Vitamin B12 1505 PG/ML (211-911)
[2023-01-04] MEDS: METOCLOPRAMIDE 10 MG/2 ML VIAL IV SCH ×3 (06:15→21:13)
[2023-01-04] MEDS: LEVOTHYROXINE 100 MCG TABLET PO SCH (06:15)
[2023-01-04] MEDS: LIOTHYRONINE 25 MCG TABLET PER TUBE SCH (06:15)
[2023-01-04 06:18] LABS: Sedimentation Rate-Westergren 76 MM/HR (0-30)
[2023-01-04 10:20] LABS: Hemoglobin A1 (Alkaline) 72.7 % (96.5-98.5); Hemoglobin A2 (Alkaline) 2.3 % (1.5-3.5)
[2023-01-04] MEDS: MULTIVITAMIN LIQUID (CENTRUM) 60 ML BOTTLE PO SCH (11:15)
[2023-01-04] MEDS: INSULIN GLARGINE 100 UNIT/ML SUBCUT SCH (11:15)
[2023-01-04] MEDS: METOPROLOL TARTRATE 50 MG TABLET PO SCH ×2 (11:15→21:13)
[2023-01-04] MEDS: FAMOTIDINE 20 MG/2 ML VIAL IV SCH (11:16)
[2023-01-04] MEDS: predniSONE 10 MG TABLET PEG SCH (11:16)
[2023-01-04] MEDS: amLODIPine 5 MG TABLET PER TUBE SCH (11:16)
[2023-01-04] MEDS: QUEtiapine 25 MG TABLET PO SCH (21:13)
[2023-01-04] MEDS: ENOXAPARIN 30 MG/0.3 ML SYRINGE SUBCUT SCH (21:13)
[2023-01-05] MEDS: INSULIN LISPRO 100 UNIT/ML SUBCUT SCH ×4 (00:18→17:21)
[2023-01-05] MEDS: ALBUTEROL 1.25 MG/3 ML NEB RESP TX SCH ×4 (00:58→21:15)
[2023-01-05] MEDS: METOCLOPRAMIDE 10 MG/2 ML VIAL IV SCH ×3 (06:10→22:32)
[2023-01-05] MEDS: LIOTHYRONINE 25 MCG TABLET PER TUBE SCH (06:10)
[2023-01-05] MEDS: LEVOTHYROXINE 100 MCG TABLET PO SCH (06:10)
[2023-01-05 08:48] LABS: Basophils % 0.3 % (0.0-0.8); Eosinophils # 0.2 10*3/uL (0.0-0.87); Eosinophils % 1.7 % (0.00-10.9); Hematocrit 30.5 VOL% (35.7-47.0); Hemoglobin 9.6 GM/DL (12.0-16.0); Immature Granulocytes % 0.8 %; Immature Granulocytes Absolute 0.09 #; Lymphocytes # 2.5 10*3/uL (1.4-4.0); Lymphocytes % 21.1 % (21.3-54.2); Mean Corpuscular HGB Conc 31.5 GM/DL (32-36); Mean Corpuscular Volume 86.2 FL (87-102); Mean Platelet Volume 9.1 FL (9.6-12.0); Monocytes # 0.9 10*3/uL (0.11-0.8); Monocytes % 7.4 % (1.7-12.7); Neutrophils % 68.7 % (38.7-73.9); Platelet Count 298 T/CUMM (130-400); Red Blood Count 3.54 MC/CUMM (3.8-5.5); Red Cell Distribution Width 17.5 % (9.3-17.3); White Blood Count 11.77 T/CUMM (4-12)
[2023-01-05] MEDS: predniSONE 10 MG TABLET PEG SCH (08:58)
[2023-01-05] MEDS: amLODIPine 5 MG TABLET PER TUBE SCH (08:58)
[2023-01-05] MEDS: METOPROLOL TARTRATE 50 MG TABLET PO SCH ×2 (08:58→22:29)
[2023-01-05] MEDS: FAMOTIDINE 20 MG/2 ML VIAL IV SCH (08:58)
[2023-01-05] MEDS: INSULIN GLARGINE 100 UNIT/ML SUBCUT SCH (08:59)
[2023-01-05 09:04] LABS: Calcium 8.9 MG/DL (8.5-10.1); Osmolality,Calculated 286.7 MOS/KG (273-304); Potassium 3.9 MMOL/L (3.5-5.1)
[2023-01-05] MEDS: MULTIVITAMIN LIQUID (CENTRUM) 60 ML BOTTLE PO SCH (10:45)
[2023-01-05] MEDS: QUEtiapine 25 MG TABLET PO SCH (22:29)
[2023-01-05] MEDS: ENOXAPARIN 30 MG/0.3 ML SYRINGE SUBCUT SCH (22:30)
[2023-01-06] MEDS: INSULIN LISPRO 100 UNIT/ML SUBCUT SCH ×4 (00:44→18:05)
[2023-01-06] MEDS: ALBUTEROL 1.25 MG/3 ML NEB RESP TX SCH ×4 (03:18→19:26)
[2023-01-06 05:22] LABS: Basophils % 0.3 % (0.0-0.8); Eosinophils # 0.2 10*3/uL (0.0-0.87); Hematocrit 27.6 VOL% (35.7-47.0); Hemoglobin 8.8 GM/DL (12.0-16.0); Immature Granulocytes % 0.7 %; Immature Granulocytes Absolute 0.08 #; Lymphocytes % 24.6 % (21.3-54.2); Mean Corpuscular HGB Conc 31.9 GM/DL (32-36); Mean Corpuscular Volume 85.7 FL (87-102); Mean Platelet Volume 9.5 FL (9.6-12.0); Monocytes % 8.1 % (1.7-12.7); Neutrophils % 64.3 % (38.7-73.9); Platelet Count 284 T/CUMM (130-400); Red Blood Count 3.22 MC/CUMM (3.8-5.5); Red Cell Distribution Width 17.4 % (9.3-17.3); White Blood Count 12.05 T/CUMM (4-12)
[2023-01-06 05:42] LABS: Calcium 9.1 MG/DL (8.5-10.1); Osmolality,Calculated 282.1 MOS/KG (273-304); Potassium 3.6 MMOL/L (3.5-5.1)
[2023-01-06] MEDS: METOCLOPRAMIDE 10 MG/2 ML VIAL IV SCH ×3 (05:51→22:03)
[2023-01-06] MEDS: LEVOTHYROXINE 100 MCG TABLET PO SCH (06:18)
[2023-01-06] MEDS: LIOTHYRONINE 25 MCG TABLET PER TUBE SCH (06:18)
[2023-01-06] MEDS: MULTIVITAMIN LIQUID (CENTRUM) 60 ML BOTTLE PO SCH (10:01)
[2023-01-06] MEDS: FAMOTIDINE 20 MG/2 ML VIAL IV SCH (10:01)
[2023-01-06] MEDS: predniSONE 10 MG TABLET PEG SCH (10:02)
[2023-01-06] MEDS: amLODIPine 5 MG TABLET PER TUBE SCH (10:02)
[2023-01-06] MEDS: INSULIN GLARGINE 100 UNIT/ML SUBCUT SCH (10:02)
[2023-01-06] MEDS: METOPROLOL TARTRATE 50 MG TABLET PO SCH ×2 (10:02→22:02)
[2023-01-06] MEDS: QUEtiapine 25 MG TABLET PO SCH (22:03)
[2023-01-06] MEDS: ENOXAPARIN 30 MG/0.3 ML SYRINGE SUBCUT SCH (22:04)
[2023-01-07] MEDS: INSULIN LISPRO 100 UNIT/ML SUBCUT SCH ×4 (00:21→18:42)
[2023-01-07] MEDS: ALBUTEROL 1.25 MG/3 ML NEB RESP TX SCH ×4 (04:55→19:11)
[2023-01-07 05:53] LABS: Basophils % 0.4 % (0.0-0.8); Eosinophils # 0.2 10*3/uL (0.0-0.87); Eosinophils % 2.1 % (0.00-10.9); Hematocrit 28.8 VOL% (35.7-47.0); Hemoglobin 8.9 GM/DL (12.0-16.0); Immature Granulocytes % 0.6 %; Immature Granulocytes Absolute 0.07 #; Lymphocytes # 2.7 10*3/uL (1.4-4.0); Lymphocytes % 24.3 % (21.3-54.2); Mean Corpuscular HGB Conc 30.9 GM/DL (32-36); Mean Corpuscular Volume 87.5 FL (87-102); Mean Platelet Volume 9.6 FL (9.6-12.0); Monocytes # 0.9 10*3/uL (0.11-0.8); Monocytes % 7.9 % (1.7-12.7); Neutrophils % 64.7 % (38.7-73.9); Platelet Count 294 T/CUMM (130-400); Red Blood Count 3.29 MC/CUMM (3.8-5.5); Red Cell Distribution Width 17.2 % (9.3-17.3); White Blood Count 10.98 T/CUMM (4-12)
[2023-01-07 06:09] LABS: Calcium 9.2 MG/DL (8.5-10.1); Osmolality,Calculated 291.7 MOS/KG (273-304); Potassium 3.8 MMOL/L (3.5-5.1)
[2023-01-07] MEDS: LIOTHYRONINE 25 MCG TABLET PER TUBE SCH (06:20)
[2023-01-07] MEDS: METOCLOPRAMIDE 10 MG/2 ML VIAL IV SCH ×3 (06:22→21:05)
[2023-01-07] MEDS: LEVOTHYROXINE 100 MCG TABLET PO SCH (06:25)
[2023-01-07] MEDS: FAMOTIDINE 20 MG/2 ML VIAL IV SCH (08:50)
[2023-01-07] MEDS: METOPROLOL TARTRATE 50 MG TABLET PO SCH ×2 (08:52→21:04)
[2023-01-07] MEDS: amLODIPine 5 MG TABLET PER TUBE SCH (08:52)
[2023-01-07] MEDS: INSULIN GLARGINE 100 UNIT/ML SUBCUT SCH (08:52)
[2023-01-07] MEDS: predniSONE 10 MG TABLET PEG SCH (08:52)
[2023-01-07] MEDS: MULTIVITAMIN LIQUID (CENTRUM) 60 ML BOTTLE PO SCH (10:10)
[2023-01-07] MEDS: QUEtiapine 25 MG TABLET PO SCH (21:04)
[2023-01-07] MEDS: ENOXAPARIN 30 MG/0.3 ML SYRINGE SUBCUT SCH (21:04)
[2023-01-08] MEDS: INSULIN LISPRO 100 UNIT/ML SUBCUT SCH ×4 (00:41→18:03)
[2023-01-08] MEDS: ALBUTEROL 1.25 MG/3 ML NEB RESP TX SCH ×4 (00:59→18:58)
[2023-01-08 04:52] LABS: Basophils % 0.3 % (0.0-0.8); Eosinophils # 0.2 10*3/uL (0.0-0.87); Eosinophils % 1.6 % (0.00-10.9); Hemoglobin 8.8 GM/DL (12.0-16.0); Immature Granulocytes % 0.6 %; Immature Granulocytes Absolute 0.07 #; Lymphocytes # 2.7 10*3/uL (1.4-4.0); Lymphocytes % 23.1 % (21.3-54.2); Mean Corpuscular HGB Conc 31.4 GM/DL (32-36); Mean Corpuscular Volume 85.4 FL (87-102); Mean Platelet Volume 9.3 FL (9.6-12.0); Monocytes # 0.9 10*3/uL (0.11-0.8); Neutrophils % 66.4 % (38.7-73.9); Platelet Count 274 T/CUMM (130-400); Red Blood Count 3.28 MC/CUMM (3.8-5.5); Red Cell Distribution Width 17.2 % (9.3-17.3); White Blood Count 11.56 T/CUMM (4-12)
[2023-01-08 05:08] LABS: Calcium 9.2 MG/DL (8.5-10.1); Potassium 3.5 MMOL/L (3.5-5.1)
[2023-01-08] MEDS: METOCLOPRAMIDE 10 MG/2 ML VIAL IV SCH ×3 (05:42→22:09)
[2023-01-08] MEDS: LEVOTHYROXINE 100 MCG TABLET PO SCH (06:02)
[2023-01-08] MEDS: LIOTHYRONINE 25 MCG TABLET PER TUBE SCH (06:03)
[2023-01-08] MEDS: METOPROLOL TARTRATE 50 MG TABLET PO SCH ×2 (09:03→22:09)
[2023-01-08] MEDS: MULTIVITAMIN LIQUID (CENTRUM) 60 ML BOTTLE PO SCH (09:03)
[2023-01-08] MEDS: FAMOTIDINE 20 MG/2 ML VIAL IV SCH (09:03)
[2023-01-08] MEDS: predniSONE 10 MG TABLET PEG SCH (09:04)
[2023-01-08] MEDS: amLODIPine 5 MG TABLET PER TUBE SCH (09:04)
[2023-01-08] MEDS: INSULIN GLARGINE 100 UNIT/ML SUBCUT SCH (09:05)
[2023-01-08] MEDS: QUEtiapine 25 MG TABLET PO SCH (22:09)
[2023-01-08] MEDS: ENOXAPARIN 30 MG/0.3 ML SYRINGE SUBCUT SCH (22:24)
[2023-01-09] MEDS: ALBUTEROL 1.25 MG/3 ML NEB RESP TX SCH ×4 (01:09→19:00)
[2023-01-09 04:57] LABS: Basophils # 0.1 10*3/uL (0.0-0.2); Basophils % 0.4 % (0.0-0.8); Eosinophils # 0.3 10*3/uL (0.0-0.87); Hematocrit 28.4 VOL% (35.7-47.0); Hemoglobin 8.8 GM/DL (12.0-16.0); Immature Granulocytes % 0.9 %; Immature Granulocytes Absolute 0.11 #; Lymphocytes % 24.2 % (21.3-54.2); Mean Corpuscular Volume 85.5 FL (87-102); Mean Platelet Volume 9.6 FL (9.6-12.0); Monocytes # 0.9 10*3/uL (0.11-0.8); Monocytes % 7.5 % (1.7-12.7); Platelet Count 290 T/CUMM (130-400); Red Blood Count 3.32 MC/CUMM (3.8-5.5); Red Cell Distribution Width 17.2 % (9.3-17.3)
[2023-01-09 05:23] LABS: Calcium 9.2 MG/DL (8.5-10.1); Potassium 3.7 MMOL/L (3.5-5.1)
[2023-01-09] MEDS: LEVOTHYROXINE 100 MCG TABLET PO SCH (06:32)
[2023-01-09] MEDS: METOCLOPRAMIDE 10 MG/2 ML VIAL IV SCH ×3 (06:32→21:02)
[2023-01-09] MEDS: LIOTHYRONINE 25 MCG TABLET PER TUBE SCH (06:32)
[2023-01-09] MEDS: INSULIN LISPRO 100 UNIT/ML SUBCUT SCH ×5 (06:37→23:54)
[2023-01-09] MEDS: FAMOTIDINE 20 MG/2 ML VIAL IV SCH (09:25)
[2023-01-09] MEDS: METOPROLOL TARTRATE 50 MG TABLET PO SCH ×2 (09:45→21:03)
[2023-01-09] MEDS: amLODIPine 5 MG TABLET PER TUBE SCH (09:45)
[2023-01-09] MEDS: predniSONE 10 MG TABLET PEG SCH (09:45)
[2023-01-09] MEDS: INSULIN GLARGINE 100 UNIT/ML SUBCUT SCH (09:46)
[2023-01-09] MEDS: MULTIVITAMIN LIQUID (CENTRUM) 60 ML BOTTLE PO SCH (11:42)
[2023-01-09] MEDS: QUEtiapine 25 MG TABLET PO SCH (21:03)
[2023-01-09] MEDS: ENOXAPARIN 30 MG/0.3 ML SYRINGE SUBCUT SCH (21:03)
[2023-01-10 04:40] LABS: Basophils % 0.3 % (0.0-0.8); Eosinophils # 0.3 10*3/uL (0.0-0.87); Eosinophils % 2.5 % (0.00-10.9); Hematocrit 28.2 VOL% (35.7-47.0); Hemoglobin 8.9 GM/DL (12.0-16.0); Immature Granulocytes % 0.6 %; Immature Granulocytes Absolute 0.08 #; Lymphocytes # 2.8 10*3/uL (1.4-4.0); Lymphocytes % 22.4 % (21.3-54.2); Mean Corpuscular HGB Conc 31.6 GM/DL (32-36); Mean Corpuscular Volume 85.7 FL (87-102); Mean Platelet Volume 10.1 FL (9.6-12.0); Monocytes % 7.8 % (1.7-12.7); Neutrophils % 66.4 % (38.7-73.9); Platelet Count 305 T/CUMM (130-400); Red Blood Count 3.29 MC/CUMM (3.8-5.5); Red Cell Distribution Width 17.2 % (9.3-17.3)
[2023-01-10 05:06] LABS: Calcium 9.1 MG/DL (8.5-10.1); Osmolality,Calculated 290.7 MOS/KG (273-304)
[2023-01-10] MEDS: LIOTHYRONINE 25 MCG TABLET PER TUBE SCH (06:02)
[2023-01-10] MEDS: METOCLOPRAMIDE 10 MG/2 ML VIAL IV SCH ×3 (06:02→21:53)
[2023-01-10] MEDS: INSULIN LISPRO 100 UNIT/ML SUBCUT SCH ×3 (06:03→18:33)
[2023-01-10] MEDS: LEVOTHYROXINE 100 MCG TABLET PO SCH (06:03)
[2023-01-10] MEDS: ALBUTEROL 1.25 MG/3 ML NEB RESP TX SCH ×4 (07:02→19:11)
[2023-01-10] MEDS: INSULIN GLARGINE 100 UNIT/ML SUBCUT SCH (09:43)
[2023-01-10] MEDS: predniSONE 10 MG TABLET PEG SCH (09:43)
[2023-01-10] MEDS: amLODIPine 5 MG TABLET PER TUBE SCH (09:43)
[2023-01-10] MEDS: METOPROLOL TARTRATE 50 MG TABLET PO SCH ×2 (09:43→21:45)
[2023-01-10] MEDS: FAMOTIDINE 20 MG/2 ML VIAL IV SCH (09:44)
[2023-01-10] MEDS: MULTIVITAMIN LIQUID (CENTRUM) 60 ML BOTTLE PO SCH (13:13)
[2023-01-10] MEDS: ENOXAPARIN 30 MG/0.3 ML SYRINGE SUBCUT SCH (21:45)
[2023-01-10] MEDS: QUEtiapine 25 MG TABLET PO SCH (21:45)
[2023-01-11] MEDS: ALBUTEROL 1.25 MG/3 ML NEB RESP TX SCH ×4 (00:07→19:18)
[2023-01-11] MEDS: INSULIN LISPRO 100 UNIT/ML SUBCUT SCH ×4 (01:04→17:58)
[2023-01-11 04:35] LABS: Basophils # 0.1 10*3/uL (0.0-0.2); Basophils % 0.4 % (0.0-0.8); Eosinophils # 0.3 10*3/uL (0.0-0.87); Eosinophils % 2.1 % (0.00-10.9); Hematocrit 27.7 VOL% (35.7-47.0); Hemoglobin 8.8 GM/DL (12.0-16.0); Immature Granulocytes % 0.6 %; Immature Granulocytes Absolute 0.08 #; Lymphocytes % 23.3 % (21.3-54.2); Mean Corpuscular HGB Conc 31.8 GM/DL (32-36); Mean Corpuscular Volume 85.5 FL (87-102); Mean Platelet Volume 9.9 FL (9.6-12.0); Monocytes % 7.3 % (1.7-12.7); Neutrophils % 66.3 % (38.7-73.9); Platelet Count 300 T/CUMM (130-400); Red Blood Count 3.24 MC/CUMM (3.8-5.5); White Blood Count 12.98 T/CUMM (4-12)
[2023-01-11 05:02] LABS: Calcium 9.4 MG/DL (8.5-10.1); Osmolality,Calculated 290.7 MOS/KG (273-304); Potassium 3.5 MMOL/L (3.5-5.1)
[2023-01-11] MEDS: METOCLOPRAMIDE 10 MG/2 ML VIAL IV SCH ×3 (06:00→22:08)
[2023-01-11] MEDS: LIOTHYRONINE 25 MCG TABLET PER TUBE SCH (06:15)
[2023-01-11] MEDS: LEVOTHYROXINE 100 MCG TABLET PO SCH (06:15)
[2023-01-11] MEDS: MULTIVITAMIN LIQUID (CENTRUM) 60 ML BOTTLE PO SCH (10:02)
[2023-01-11] MEDS: amLODIPine 5 MG TABLET PER TUBE SCH (10:02)
[2023-01-11] MEDS: INSULIN GLARGINE 100 UNIT/ML SUBCUT SCH (10:02)
[2023-01-11] MEDS: METOPROLOL TARTRATE 50 MG TABLET PO SCH ×2 (10:02→21:32)
[2023-01-11] MEDS: FAMOTIDINE 20 MG/2 ML VIAL IV SCH (10:03)
[2023-01-11] MEDS: QUEtiapine 25 MG TABLET PO SCH (21:32)
[2023-01-11] MEDS: ENOXAPARIN 30 MG/0.3 ML SYRINGE SUBCUT SCH (21:33)
[2023-01-12] MEDS: INSULIN LISPRO 100 UNIT/ML SUBCUT SCH ×4 (00:22→18:46)
[2023-01-12] MEDS: ALBUTEROL 1.25 MG/3 ML NEB RESP TX SCH ×4 (00:33→18:56)
[2023-01-12 05:10] LABS: Basophils % 0.3 % (0.0-0.8); Eosinophils # 0.4 10*3/uL (0.0-0.87); Eosinophils % 3.4 % (0.00-10.9); Hematocrit 29.3 VOL% (35.7-47.0); Hemoglobin 9.3 GM/DL (12.0-16.0); Immature Granulocytes % 0.7 %; Immature Granulocytes Absolute 0.08 #; Lymphocytes # 2.7 10*3/uL (1.4-4.0); Lymphocytes % 23.3 % (21.3-54.2); Mean Corpuscular HGB Conc 31.7 GM/DL (32-36); Mean Corpuscular Volume 85.9 FL (87-102); Mean Platelet Volume 9.9 FL (9.6-12.0); Monocytes # 0.8 10*3/uL (0.11-0.8); Monocytes % 7.2 % (1.7-12.7); NRBC # 0.02 10*3/uL; Neutrophils % 65.1 % (38.7-73.9); Platelet Count 319 T/CUMM (130-400); Red Blood Count 3.41 MC/CUMM (3.8-5.5); White Blood Count 11.57 T/CUMM (4-12)
[2023-01-12 05:26] LABS: Osmolality,Calculated 298.4 MOS/KG (273-304); Potassium 3.8 MMOL/L (3.5-5.1)
[2023-01-12] MEDS: METOCLOPRAMIDE 10 MG/2 ML VIAL IV SCH ×3 (06:01→21:18)
[2023-01-12] MEDS: LIOTHYRONINE 25 MCG TABLET PER TUBE SCH (06:05)
[2023-01-12] MEDS: LEVOTHYROXINE 100 MCG TABLET PO SCH (06:05)
[2023-01-12] MEDS ORDERED: predniSONE 10 MG TABLET PO SCH (09:00)
[2023-01-12] MEDS: METOPROLOL TARTRATE 50 MG TABLET PO SCH ×2 (10:13→21:12)
[2023-01-12] MEDS: amLODIPine 5 MG TABLET PER TUBE SCH (10:13)
[2023-01-12] MEDS: MULTIVITAMIN LIQUID (CENTRUM) 60 ML BOTTLE PO SCH (10:50)
[2023-01-12] MEDS: INSULIN GLARGINE 100 UNIT/ML SUBCUT SCH (10:52)
[2023-01-12] MEDS: FAMOTIDINE 20 MG/2 ML VIAL IV SCH (10:53)
[2023-01-12] MEDS: QUEtiapine 25 MG TABLET PO SCH (21:12)
[2023-01-12] MEDS: ENOXAPARIN 30 MG/0.3 ML SYRINGE SUBCUT SCH (21:16)
[2023-01-13] MEDS: INSULIN LISPRO 100 UNIT/ML SUBCUT SCH ×2 (00:14→06:40)
[2023-01-13] MEDS: ALBUTEROL 1.25 MG/3 ML NEB RESP TX SCH ×2 (00:29→06:52)
[2023-01-13] MEDS: METOCLOPRAMIDE 10 MG/2 ML VIAL IV SCH (06:30)
[2023-01-13] MEDS: LIOTHYRONINE 25 MCG TABLET PER TUBE SCH (06:40)
[2023-01-13] MEDS: LEVOTHYROXINE 100 MCG TABLET PO SCH (06:40)
[2023-01-13 08:24] VITALS: BP 124/74
[2023-01-13] MEDS: INSULIN GLARGINE 100 UNIT/ML SUBCUT SCH (09:42)
[2023-01-13] MEDS: amLODIPine 5 MG TABLET PER TUBE SCH (09:42)
[2023-01-13] MEDS: MULTIVITAMIN LIQUID (CENTRUM) 60 ML BOTTLE PO SCH (09:42)
[2023-01-13] MEDS: METOPROLOL TARTRATE 50 MG TABLET PO SCH (09:42)
[2023-01-13] MEDS: FAMOTIDINE 20 MG/2 ML VIAL IV SCH (09:43)
== END 2023-01-13 11:39 | DRG 4 ==
LOC: EDBD → EDUNIT# → N.ED 19:03 → N.ICU 20:45 → SUATTDRO 21:20 → N.ICU 21:20 → N.TELEN 12-15 09:13
PROVIDERS: ADMIT Internal Medicine; ATTEND Family Medicine
PROC: EGDWPEG (ICD-10-PCS; 2022-12-10 12:20)